=== PATIENT | male | born 1955 | race Hispanic/Latino ===

== ENCOUNTER 2019-10-28 10:59 | Outpatient (CLI) | payer OTHER, SELFPAY ==
--- NOTE | ~2019-10-28 | CT_ITS ---
EXAMINATION: CT lung screening EXAM DATE: 10/28/2019 11:27 INDICATION: Personal history of nicotine dependence. TECHNIQUE: Spiral low dose CT of the chest without contrast. Axial, coronal and sagittal images were reviewed. The dose-length product (DLP) for this examination was 219.40 mGy-cm. The exposure was t ailored according to patient size (auto mA exposure control), and iterative reconstruction (ASIR) was used as additional dose reduction technique. Comparison is made to prior examination from 03/03/2018 . FINDINGS: There is mild to moderate emphysema. There is a 2 mm nodule in the left upper lobe. Difficu lt to determine if this was present on prior study. Tracheobronchial tree is patent. There is no m ediastinal, hilar or axillary lymphadenopathy. There are no pleural or pericardial effusions. The re is no pneumothorax. Heart normal in size. There is moderate coronary arterial calcification, a rterial sclerosis. Upper abdomen is unremarkable. There is mild thoracic spondylosis without osteob lastic or osteolytic lesions identified. IMPRESSION: Lung-RADS category 2, benign appearance or behavior (<1% chance of malignancy); recommend continued LDCT screening in 1 year. Reviewed, dictated and finalized at location A.
== END 2019-10-28 11:00 | disposition home or self-care (01) ==
LOC: ANHIMG 11:03
PROVIDERS: PCP Family Medicine; Visit Provider Physician Assistant
DX: Z12.2 Encounter for screening for malignant neoplasm of respiratory organs (principal); Z87.891 Personal history of nicotine dependence
CPT/HCPCS: G0297

== ENCOUNTER 2019-11-16 07:07 | Outpatient (CLI) | payer OTHER, SELFPAY ==
[2019-11-16 07:30] LABS: Basophils Absolute Auto 0.1 K/mm3 (0.0-0.1); Basophils Percent Auto 0.6 % (0.2-1.2); Eosinophils Absolute Auto 0.2 K/mm3 (0-0.3); Eosinophils Percent Auto 2.4 % (0-4.4); Hematocrit 41.6 % (42.0-52.0); Hemoglobin 14.2 g/dL (14.0-18.0); Immature Granulocyte Absolute 0.04 K/mm3 (0.00-0.031); Immature Granulocyte Percent A 0.5 % (0-0.5); Lymphocytes Absolute Auto 3.06 K/mm3 (0.9-3.2); Mean Corpuscular HGB Conc 34.1 g/dl (32-36); Mean Corpuscular Volume 93.7 fl (80-100); Mean Platelet Volume 9.8 fl (7.4-10.4); Monocytes Absolute Auto 0.8 K/mm3 (0.1-0.6); Monocytes Percent Auto 9.2 % (2.6-8.5); Neutrophils Absolute Auto 4.2 K/mm3 (1.3-6.7); Neutrophils Percent Auto 50.3 % (45.5-73.1); Platelet Count Result 265 k/mm3 (150-375); Red Blood Count 4.44 M/mm3 (4.6-6.20); Red Cell Distribution Width 12.7 % (11.5-14.5); White Blood Count 8.3 K/mm3 (4.5-10.0)
[2019-11-16 07:43] LABS: Hemoglobin A1C 6.1 % (<5.7)
[2019-11-16 07:44] LABS: Alanine Aminotransferase 58 U/L (4-50); Albumin Level 4.6 g/dL (3.5-5.1); Alkaline Phosphatase 118 U/L (38-126); Anion Gap 9 mmol/L (8-16); Aspartate Amino Transferase 39 U/L (17-59); Bilirubin,Total 0.5 mg/dL (0.2-1.3); Blood Urea Nitrogen 16 mg/dL (9-20); Calcium 9.4 mg/dL (8.4-10.2); Carbon Dioxide 29 mmol/L (22-30); Chloride 100 mmol/L (98-107); Cholesterol 191 mg/dL (0-200); Estimated Glomerular Filt Rate > 60; Glucose 120 mg/dL (75-110); HDL Direct 42 mg/dL; Potassium 3.9 mmol/L (3.4-5.0); Sodium 138 mmol/L (137-145); Triglycerides 300 mg/dL (<150)
[2019-11-16 07:55] LABS: LDL Cholesterol Direct 100 mg/dL
[2019-11-16 08:33] LABS: Add Urine Microscopic? NO; Appearance Urine Clear (Clear); Bilirubin Urine Negative (Negative); Blood Urine Negative (Negative); Color Urine Straw (Yellow); Glucose Urine UA Negative (Negative); Ketones Urine Negative (Negative); Leukocyte Esterase Ur Negative LEU/UL (NEGATIVE); Nitrate Urine Negative (Negative); Protein Urine Negative (Negative); Specific Grav Ur 1.012 (1.001-1.035); Urobilinogen Urine Negative mg/dL (<2.0)
[2019-11-19 09:08] LABS: Protein S Antigen, Total 121 % normal (70-140)
== END 2019-11-16 07:08 | disposition home or self-care (01) ==
PROVIDERS: PCP Family Medicine; Visit Provider Physician Assistant
DX: E78.00 Pure hypercholesterolemia, unspecified (principal); E11.42 Type 2 diabetes mellitus with diabetic polyneuropathy; I10 Essential (primary) hypertension; Z12.5 Encounter for screening for malignant neoplasm of prostate
CPT/HCPCS: 36415; 80053; 80061; 81003; 83036; 84443; 85025; 85305

== ENCOUNTER 2020-04-24 06:35 | Outpatient (CLI) | payer OTHER, SELFPAY ==
--- NOTE | ~2020-04-24 | XR_ITS ---
EXAMINATION:XR_CERV2-3V_CR DATE: 04/24/2020 07:29 INDICATION: Neck pain TECHNIQUE: AP, lateral, lateral swimmers and odontoid views of the cervical spine are obtained on fiv e radiographs. COMPARISON: 03/21/2014 FINDINGS: There are 2 mm of stable anterolisthesis of C4 on C5. The odontoid is intact. No fracture i s identified. The vertebral body heights are normal. There is moderate loss of intervertebral disc sp destin height at C5-6 and C6-7. There is moderate to severe facet and uncovertebral joint osteoarthritis throughout the mid and lower cervical spine. Prevertebral soft tissues are normal. IMPRESSION: 1. Moderate cervical spondylosis without acute findings or significant interval change. Reviewed, dictated and finalized at location A. NE DESIGNER
--- NOTE | ~2020-04-24 | XR_ITS ---
EXAMINATION: XR lumbar spine 2-3V DATE: 04/24/2020 07:29 INDICATION: Low back pain TECHNIQUE: Anteroposterior and lateral views of the lumbar spine, and cone-down lateral view of the l umbosacral junction were obtained. COMPARISON: 01/05/2015 FINDINGS: There are 3 mm of stable anterolisthesis of L4 on L5. There is severe loss of intervertebra l disc space height at L5-S1 and moderate loss of intervertebral disc space height at L4-5. The verte bral body heights are normal. There is severe facet osteoarthritis of the lower lumbar spine. Calcifi ed atherosclerosis is noted. IMPRESSION: 1. Severe lumbar spondylosis with interval worsening. Reviewed, dictated and finalized at location A. RT SPECIALIST
[2020-04-24 07:21] LABS: Hemoglobin A1C 6.3 % (<5.7)
[2020-04-24 07:31] LABS: Alanine Aminotransferase 38 U/L (4-50); Albumin Level 4.2 g/dL (3.5-5.1); Alkaline Phosphatase 108 U/L (38-126); Anion Gap 6 mmol/L (8-16); Aspartate Amino Transferase 28 U/L (17-59); Bilirubin,Total 0.6 mg/dL (0.2-1.3); Blood Urea Nitrogen 6 mg/dL (9-20); Calcium 9.4 mg/dL (8.4-10.2); Carbon Dioxide 31 mmol/L (22-30); Chloride 90 mmol/L (98-107); Estimated Glomerular Filt Rate > 60; Glucose 124 mg/dL (75-110); Potassium 3.3 mmol/L (3.4-5.0); Sodium 127 mmol/L (137-145)
[2020-04-24 08:01] LABS: Prostate Specific Antigen 1.2 ng/mL (< OR = 4.0)
== END 2020-04-24 06:36 | disposition home or self-care (01) ==
PROVIDERS: PCP Family Medicine; Referring Provider Pain Medicine Interventional Pain Medicine; Visit Provider Physician Assistant
DX: G89.4 Chronic pain syndrome (principal); E11.42 Type 2 diabetes mellitus with diabetic polyneuropathy; I10 Essential (primary) hypertension; R97.20 Elevated prostate specific antigen [PSA]; Z13.89 Encounter for screening for other disorder; Z79.891 Long term (current) use of opiate analgesic; M47.26 Other spondylosis with radiculopathy, lumbar region; M47.22 Other spondylosis with radiculopathy, cervical region
CPT/HCPCS: 36415; 72040; 72100; 80053; 83036; 84153

== ENCOUNTER 2020-05-01 06:38 | Outpatient (CLI) | payer OTHER, SELFPAY ==
[2020-05-01 07:37] LABS: Potassium 3.5 mmol/L (3.4-5.0)
[2020-05-01 07:48] LABS: Anion Gap 6 mmol/L (8-16); Blood Urea Nitrogen 9 mg/dL (9-20); Calcium 9.4 mg/dL (8.4-10.2); Carbon Dioxide 29 mmol/L (22-30); Chloride 98 mmol/L (98-107); Estimated Glomerular Filt Rate > 60; Glucose 134 mg/dL (75-110); Sodium 133 mmol/L (137-145)
== END 2020-05-01 06:39 | disposition home or self-care (01) ==
PROVIDERS: Family Provider Family Medicine; PCP Family Medicine; Visit Provider Physician Assistant
DX: E87.1 Hypo-osmolality and hyponatremia (principal)
CPT/HCPCS: 36415; 80048

== ENCOUNTER 2020-07-07 10:51 | Outpatient (CLI) | payer OTHER, SELFPAY | END 2020-07-07 10:52 | disposition home or self-care (01) | LOC: ANHAUDIO 10:52 | PROVIDERS: PCP Family Medicine; Referring Provider Family Medicine; Visit Provider Nurse Practitioner Family | DX: H91.90 Unspecified hearing loss, unspecified ear (principal) | CPT/HCPCS: 92557; 92567 ==

== ENCOUNTER 2020-07-20 14:00 | Outpatient (RCR) | payer SELFPAY | END 2020-07-20 23:59 | disposition home or self-care (01) | LOC: ANHAUDIO 14:00 | PROVIDERS: PCP Family Medicine; Visit Provider Family Medicine | DX: Z46.1 Encounter for fitting and adjustment of hearing aid (principal) | CPT/HCPCS: 99199; V5261 ==

== ENCOUNTER → 2020-10-30 09:54 | Outpatient (CLI) | payer OTHER, SELFPAY ==
--- NOTE | ~2020-10-30 | US_ITS ---
EXAMINATION: US venous doppler LE RT DATE: 10/30/2020 10:24 INDICATION: Right lower limb swelling TECHNIQUE: Macias scale images without and with compression and Doppler images of the right lower extre mity veins were obtained. COMPARISON: None FINDINGS: The right common femoral vein, profunda femoral vein, femoral vein, popliteal vein, peronea l trunk, posterior tibial veins, and greater saphenous vein are patent. No discrete abnormality is id entified in the area of clinical concern. IMPRESSION: 1. Patent right lower extremity veins. No evidence of deep venous thrombosis. 2. No discrete sonographic abnormality detected in the area of clinical interest. Reviewed, dictated and finalized at location B. IMPRESSION: 1. Patent right lower extremity veins. No evidence of deep venous thrombosis. 2. No discrete sonographic abnormality detected in the area of clinical interes t.
== END ==
PROVIDERS: PCP Family Medicine; Visit Provider Physician Assistant
DX: L98.9 Disorder of the skin and subcutaneous tissue, unspecified (principal); M79.89 Other specified soft tissue disorders
CPT/HCPCS: 93971

== ENCOUNTER 2020-11-12 14:14 | Outpatient (CLI) | payer MEDICARE, OTHER, SELFPAY ==
[2020-11-12 14:37] LABS: Basophils Percent Auto 0.4 % (0.2-1.2); Eosinophils Percent Auto 0.2 % (0-4.4); Hematocrit 40.1 % (42.0-52.0); Hemoglobin 14.3 g/dL (14.0-18.0); Immature Granulocyte Absolute 0.03 K/mm3 (0.00-0.031); Immature Granulocyte Percent A 0.3 % (0-0.5); Lymphocytes Absolute Auto 2.54 K/mm3 (0.9-3.2); Lymphocytes Percent Auto 24.3 % (18.3-44.2); Mean Corpuscular HGB Conc 35.7 g/dl (32-36); Mean Corpuscular Hemoglobin 31.6 pg (26-34); Mean Corpuscular Volume 88.7 fl (80-100); Mean Platelet Volume 9.4 fl (7.4-10.4); Monocytes Absolute Auto 0.8 K/mm3 (0.1-0.6); Monocytes Percent Auto 7.2 % (2.6-8.5); Neutrophils Absolute Auto 7.1 K/mm3 (1.3-6.7); Neutrophils Percent Auto 67.6 % (45.5-73.1); Platelet Count Result 326 k/mm3 (150-375); Red Blood Count 4.52 M/mm3 (4.6-6.20); Red Cell Distribution Width 12.2 % (11.5-14.5); White Blood Count 10.5 K/mm3 (4.5-10.0)
[2020-11-12 14:46] LABS: Add Urine Microscopic? YES; Appearance Urine Clear (Clear); Bilirubin Urine Negative (Negative); Blood Urine Negative (Negative); Color Urine Straw (Yellow); Glucose Urine UA Negative (Negative); Ketones Urine Negative (Negative); Leukocyte Esterase Ur Trace LEU/UL (NEGATIVE); Nitrate Urine Negative (Negative); Protein Urine Negative (Negative); RBC Urine 0-2 /hpf (0-2); Specific Grav Ur 1.008 (1.001-1.035); Urobilinogen Urine Negative mg/dL (<2.0)
[2020-11-12 17:18] LABS: Alanine Aminotransferase 27 U/L (4-50); Albumin Level 4.4 g/dL (3.5-5.1); Alkaline Phosphatase 117 U/L (38-126); Anion Gap 11 mmol/L (8-16); Aspartate Amino Transferase 20 U/L (17-59); Bilirubin,Total 0.7 mg/dL (0.2-1.3); Blood Urea Nitrogen 6 mg/dL (9-20); Calcium 9.7 mg/dL (8.4-10.2); Carbon Dioxide 24 mmol/L (22-30); Chloride 90 mmol/L (98-107); Estimated Glomerular Filt Rate > 60; Glucose 119 mg/dL (65-110); Potassium 3.4 mmol/L (3.4-5.0); Sodium 125 mmol/L (137-145)
[2020-11-12 17:36] LABS: Hemoglobin A1C 6.3 % (<5.7)
[2020-11-12 17:44] LABS: Prostate Specific Antigen 1.4 ng/mL (< OR = 4.0)
== END 2020-11-12 14:15 | disposition home or self-care (01) ==
LOC: ANHLAB 14:16
PROVIDERS: PCP Family Medicine; Visit Provider Physician Assistant
DX: N13.4 Hydroureter (principal); R10.9 Unspecified abdominal pain; E11.42 Type 2 diabetes mellitus with diabetic polyneuropathy; H35.039 Hypertensive retinopathy, unspecified eye; N40.0 Benign prostatic hyperplasia without lower urinary tract symptoms
CPT/HCPCS: 36415; 80053; 81001; 83036; 84153; 85025; 87086

== ENCOUNTER 2020-11-20 12:45 | Outpatient (CLI) | payer MEDICARE, OTHER, SELFPAY ==
--- NOTE | ~2020-11-20 | US_ITS ---
EXAMINATION: US carotid duplex BI DATE: 11/20/2020 13:38 INDICATION: Conjunctival hemorrhage of the eyes. TECHNIQUE: Grayscale, color Doppler, and pulsed Doppler images of the cervical carotid arteries were obtained. The degree of vessel stenosis is placed in one of the following categories: normal, <50%, 5 0-69%, >=70% but less than near-occlusion, near-occlusion, or total occlusion. Note that percent sten osis relative to normal distal artery lumen diameter is indirectly measured from velocity measurement s as described by Curtis, et al. Radiology 2003; 229:340-346. COMPARISON: None. FINDINGS: RIGHT: The right common carotid artery (CCA) peak systolic velocity (PSV) is 96 cm/s. The right internal car otid artery (ICA) PSV is 85 cm/s. The right ICA end-diastolic velocity (EDV) is 25 cm/s. The right IC A/CCA PSV ratio is 0.9. Grayscale and color Doppler images yield an estimate of <50% diameter reducti on from plaque in the ICA. There is antegrade flow in the right vertebral artery. LEFT: The left CCA PSV is 104 cm/s. The left ICA PSV is 94 cm/s. The left ICA EDV is 31 cm/s. The left ICA/ CCA PSV ratio is 0.9. Grayscale and color Doppler images yield an estimate of <50% diameter reduction from plaque in the ICA. There is antegrade flow in the left vertebral artery. IMPRESSION: 1. <50% stenosis in the right internal carotid artery. 2. <50% stenosis in the left internal carotid artery. Reviewed, dictated and finalized at location A.
[2020-11-20 13:58] LABS: Basophils Percent Auto 0.4 % (0.2-1.2); Eosinophils Absolute Auto 0.1 K/mm3 (0-0.3); Eosinophils Percent Auto 1.4 % (0-4.4); Hematocrit 41.3 % (42.0-52.0); Hemoglobin 14.3 g/dL (14.0-18.0); Immature Granulocyte Absolute 0.02 K/mm3 (0.00-0.031); Immature Granulocyte Percent A 0.2 % (0-0.5); Lymphocytes Absolute Auto 2.64 K/mm3 (0.9-3.2); Lymphocytes Percent Auto 28.8 % (18.3-44.2); Mean Corpuscular HGB Conc 34.6 g/dl (32-36); Mean Corpuscular Hemoglobin 31.6 pg (26-34); Mean Corpuscular Volume 91.2 fl (80-100); Mean Platelet Volume 9.4 fl (7.4-10.4); Monocytes Absolute Auto 0.8 K/mm3 (0.1-0.6); Monocytes Percent Auto 8.3 % (2.6-8.5); Neutrophils Absolute Auto 5.6 K/mm3 (1.3-6.7); Neutrophils Percent Auto 60.9 % (45.5-73.1); Platelet Count Result 326 k/mm3 (150-375); Red Blood Count 4.53 M/mm3 (4.6-6.20); Red Cell Distribution Width 12.6 % (11.5-14.5); White Blood Count 9.2 K/mm3 (4.5-10.0)
[2020-11-20 14:15] LABS: Alanine Aminotransferase 29 U/L (4-50); Albumin Level 4.4 g/dL (3.5-5.1); Alkaline Phosphatase 112 U/L (38-126); Anion Gap 11 mmol/L (8-16); Aspartate Amino Transferase 25 U/L (17-59); Bilirubin,Total 0.3 mg/dL (0.2-1.3); Blood Urea Nitrogen 9 mg/dL (9-20); Calcium 9.5 mg/dL (8.4-10.2); Carbon Dioxide 27 mmol/L (22-30); Chloride 95 mmol/L (98-107); Estimated Glomerular Filt Rate > 60; Glucose 141 mg/dL (65-110); Potassium 3.4 mmol/L (3.4-5.0); Sodium 133 mmol/L (137-145)
== END 2020-11-20 12:46 | disposition home or self-care (01) ==
LOC: ANHIMG 12-18 12:45
PROVIDERS: Physician Assistant; PCP Family Medicine; Visit Provider Physician Assistant
DX: E87.1 Hypo-osmolality and hyponatremia (principal); I65.23 Occlusion and stenosis of bilateral carotid arteries; D72.829 Elevated white blood cell count, unspecified; H11.33 Conjunctival hemorrhage, bilateral; E11.40 Type 2 diabetes mellitus with diabetic neuropathy, unspecified; I10 Essential (primary) hypertension
CPT/HCPCS: 36415; 80053; 85025; 93880

== ENCOUNTER 2021-02-01 14:35 | Outpatient (RCR) | payer MEDICARE, OTHER, SELFPAY | END 2021-02-01 23:59 | disposition home or self-care (01) | LOC: ANHAUDIO 14:35 | PROVIDERS: PCP Family Medicine; Visit Provider Family Medicine | DX: Z46.1 Encounter for fitting and adjustment of hearing aid (principal) | CPT/HCPCS: 99199 ==

== ENCOUNTER 2021-04-15 15:31 | Outpatient (CLI) | payer MEDICARE, OTHER, SELFPAY ==
[2021-04-15 16:06] LABS: Hemoglobin A1C 6.3 % (<5.7)
[2021-04-15 16:09] LABS: Alanine Aminotransferase 30 U/L (4-50); Albumin Level 4.8 g/dL (3.5-5.1); Alkaline Phosphatase 130 U/L (38-126); Anion Gap 9 mmol/L (8-16); Aspartate Amino Transferase 25 U/L (17-59); Bilirubin,Total 0.6 mg/dL (0.2-1.3); Blood Urea Nitrogen 8 mg/dL (9-20); Calcium 9.6 mg/dL (8.4-10.2); Carbon Dioxide 27 mmol/L (22-30); Chloride 96 mmol/L (98-107); Estimated Glomerular Filt Rate > 60; Glucose 108 mg/dL (65-110); Potassium 3.6 mmol/L (3.4-5.0); Sodium 132 mmol/L (137-145)
== END 2021-04-15 15:32 | disposition home or self-care (01) ==
LOC: ANHLAB 15:35
PROVIDERS: PCP Family Medicine; Visit Provider Physician Assistant
DX: E11.42 Type 2 diabetes mellitus with diabetic polyneuropathy (principal); I10 Essential (primary) hypertension
CPT/HCPCS: 36415; 80053; 83036

== ENCOUNTER 2021-04-23 08:00 | Outpatient (CLI) | payer MEDICARE, OTHER, SELFPAY ==
--- NOTE | ~2021-04-23 | CT_ITS ---
EXAMINATION:CT lung screening DATE: 04/23/2021 09:12 INDICATION: Personal history of nicotine dependence. Current smoker with 30 pack year history. TECHNIQUE: Computed tomography (CT) of the chest was performed without intravenous contrast. Automate d exposure control and iterative reconstruction technique were employed. The dose-length product (DLP ) was 196.28 mGy-cm. COMPARISON: Chest CT 10/28/2019 FINDINGS: There is mild emphysema. Again seen is a 2 mm nodule in right upper lobe. No pleural effusi on. The heart size is normal. There are coronary artery calcifications. No pericardial effusion. Ther e are is a gallstone in the gallbladder, which is normal in size. There is mild thoracic spondylosis. IMPRESSION: 1. Lung-RADS category 2: Benign appearance or behavior. Continue annual screening with noncontrast lo w-dose chest CT in 12 months. Reviewed, dictated and finalized at location B. OF HUMAN RESOURCES IMPRESSION: 1. Lung-RADS category 2: Benign appearance or behavior. Continue annual screeni ng with noncontrast low-dose chest CT in 12 months.
--- NOTE | ~2021-04-23 | US_ITS ---
EXAMINATION: US aorta [employer] [facility] EXAM DATE: 04/23/2021 09:07 INDICATION: Tobacco use. High blood pressure. Hypertension, diabetes. High cholesterol. Abdominal aor tic aneurysm screening. TECHNIQUE: Multiple grayscale and Doppler images of the abdominal aorta were obtained (by a technolog ist who performed the scan) and subsequently reviewed. There is no prior study for comparison. FINDINGS: The abdominal aorta is normal in caliber as are the common iliac arteries. No retroperitoneal mass id entified. IMPRESSION: Normal abdominal aortic caliber. Reviewed, dictated and finalized at location A. MAKER HELPER MACHINE
== END 2021-04-23 08:01 | disposition home or self-care (01) ==
LOC: ANHIMG 08:04
PROVIDERS: PCP Family Medicine; Visit Provider Physician Assistant
DX: Z87.891 Personal history of nicotine dependence (principal)
CPT/HCPCS: 71271; 76706

== ENCOUNTER 2021-05-31 06:40 | Outpatient (CLI) | payer MEDICARE, OTHER, SELFPAY ==
--- NOTE | ~2021-05-31 | MR_ITS ---
EXAMINATION: MR lumbar spine wo [facility] EXAM DATE: 05/31/2021 07:28 INDICATION: Lumbar radiculopathy. Left hip pain. Left leg pain. TECHNIQUE: Multi-sequential, multiplanar MR images of the lumbar spine were obtained without contrast . Sagittal T1, T2, T2 fat saturation images. Axial T2 weighted images. Comparison is made to prior examination from 08/15/2018. FINDINGS: There is severe disc disease at L5-S1, moderate at L4-5, mild at the other lumbar levels. T here is 3 mm anterolisthesis L4 on L5, 4 mm retrolisthesis L5 on S1. There are some degenerative endp late signal changes L5-S1. There are no suspicious focal vertebral signal abnormalities identified. The conus medullaris terminates at the T12-L1 level and has normal signal intensity and morphology. Paraspinal soft tissue is unremarkable. Level by level evaluation: T12-L1: Disc does not extend beyond the endplate margin. Facet arthropathy: None. Neural foraminal stenosis: No stenosis. Central canal stenosis: No stenosis. L1-L2: There is a mild diffuse disc bulge. Facet arthropathy: Mild. Neural foraminal stenosis: Minimal bilateral. Central canal stenosis: Minimal. L2-L3: There is a mild diffuse disc bulge. Facet arthropathy: Mild. Neural foraminal stenosis: Minimal bilateral. Central canal stenosis: Mild. L3-L4: There is a mild diffuse disc bulge. Facet arthropathy: Mild to moderate right, mild left. Neural foraminal stenosis: Mild bilateral. Central canal stenosis: Mild. L4-L5: There is a moderate diffuse disc bulge asymmetric to the right Facet arthropathy: Moderate. Neural foraminal stenosis: Mild to moderate left, mild right. Central canal stenosis: Mild to moderate. L5-S1: There is a moderate diffuse disc bulge. Facet arthropathy: Mild. Neural foraminal stenosis: Moderate left, mild to moderate right. Central canal stenosis: Mild. Mild interval progression spondylosis compared to previous examination. IMPRESSION: 1. L5-S1 moderate to severe disc disease and moderate left neural foraminal stenosis. 2. Mild lower lumbar subluxations. Reviewed, dictated and finalized at location A. ICE PROVIDER IMPRESSION: 1. L5-S1 moderate to severe disc disease and moderate left neural foraminal st enosis. 2. Mild lower lumbar subluxations.
== END 2021-05-31 06:41 | disposition home or self-care (01) ==
LOC: ANHIMG 06:43
PROVIDERS: PCP Family Medicine
DX: M54.17 Radiculopathy, lumbosacral region (principal); M51.37 Other intervertebral disc degeneration, lumbosacral region; Z79.891 Long term (current) use of opiate analgesic
CPT/HCPCS: 72148

== ENCOUNTER 2021-07-29 06:55 | Outpatient (CLI) | payer MEDICARE, OTHER, SELFPAY ==
[2021-07-29 08:23] LABS: Alanine Aminotransferase 28 U/L (4-50); Albumin Level 4.5 g/dL (3.5-5.1); Alkaline Phosphatase 118 U/L (38-126); Anion Gap 5 mmol/L (8-16); Aspartate Amino Transferase 27 U/L (17-59); Bilirubin,Total 0.5 mg/dL (0.2-1.3); Blood Urea Nitrogen 10 mg/dL (9-20); Calcium 8.8 mg/dL (8.4-10.2); Carbon Dioxide 29 mmol/L (22-30); Chloride 99 mmol/L (98-107); Estimated Glomerular Filt Rate > 60; Glucose 90 mg/dL (65-110); Potassium 3.8 mmol/L (3.4-5.0); Sodium 133 mmol/L (137-145)
== END 2021-07-29 06:56 | disposition home or self-care (01) ==
PROVIDERS: PCP Family Medicine; Visit Provider Physician Assistant
DX: E11.42 Type 2 diabetes mellitus with diabetic polyneuropathy (principal); I10 Essential (primary) hypertension
CPT/HCPCS: 36415; 80053; 83036

== ENCOUNTER → 2021-09-28 09:48 | Outpatient (REF) | payer MEDICARE, OTHER, SELFPAY | LOC: ANHLAB 09:48 | PROVIDERS: PCP Family Medicine; Visit Provider Nurse Practitioner | DX: L85.8 Other specified epidermal thickening (principal); B07.8 Other viral warts | CPT/HCPCS: 88305 ==

== ENCOUNTER 2021-11-06 06:43 | Outpatient (CLI) | payer MEDICARE, OTHER, SELFPAY ==
[2021-11-06 07:08] LABS: Alanine Aminotransferase 29 U/L (6-50); Albumin Level 4.5 g/dL (3.5-5.1); Alkaline Phosphatase 106 U/L (38-126); Anion Gap 12 mmol/L (8-16); Aspartate Amino Transferase 21 U/L (17-59); Bilirubin,Total 0.5 mg/dL (0.2-1.3); Blood Urea Nitrogen 7 mg/dL (9-20); Calcium 9.4 mg/dL (8.4-10.2); Carbon Dioxide 28 mmol/L (22-30); Chloride 93 mmol/L (98-107); Estimated Glomerular Filt Rate > 60; Glucose 176 mg/dL (65-110); Potassium 3.4 mmol/L (3.4-5.0); Sodium 133 mmol/L (137-145)
[2021-11-06 07:10] LABS: Hemoglobin A1C 5.9 % (<5.7)
== END 2021-11-06 06:44 | disposition home or self-care (01) ==
LOC: ANHLAB 06:46
PROVIDERS: PCP Family Medicine; Visit Provider Physician Assistant
DX: E11.42 Type 2 diabetes mellitus with diabetic polyneuropathy (principal); I10 Essential (primary) hypertension
CPT/HCPCS: 36415; 80053; 83036

== ENCOUNTER → 2021-12-21 11:33 | Outpatient (CLI) | payer MEDICARE, OTHER, SELFPAY ==
--- NOTE | ~2021-12-21 | XR_ITS ---
EXAMINATION: XR hip LT min 3V w AP pelvis DATE: 12/21/2021 11:52 INDICATION: Left hip injury. Initial encounter. TECHNIQUE: An anteroposterior view of the pelvis and 2 views of left hip were obtained. COMPARISON: Left hip radiographs 09/16/2015 FINDINGS: Bone alignment is normal. No fracture. There is severe lower lumbar spondylosis. There is m ild osteoarthritis of the hips. IMPRESSION: 1. Mild osteoarthritis of the hips. Reviewed, dictated and finalized at location A.
== END ==
PROVIDERS: PCP Family Medicine; Visit Provider Physician Assistant
DX: S79.912A Unspecified injury of left hip, initial encounter (principal); X58.XXXA Exposure to other specified factors, initial encounter; M16.12 Unilateral primary osteoarthritis, left hip
CPT/HCPCS: 73502

== ENCOUNTER 2022-03-12 09:11 | Outpatient (CLI) | payer MEDICARE, OTHER, SELFPAY ==
--- NOTE | 2022-03-12 10:02 | ECHO_ITS ---
Patient Info Name: Mathieu Mcgarry Age: 66 years : 1955 Gender: Male Ht: 69 in Wt: 215 lbs BSA: 2.21 m2 HR: 93 bpm BP: 140 / 88 mmHg Technical Quality: Fair Exam Date: 03/12/2022 10:29 AM Exam Location: [facility] Pulmonary Patient Status: Outpatient Admit Date: 03/12/2022 Staff Ordering Physician: Chrissy Linares PA-C Transit Survey Worker: Darshana Desai RDCS Attending Provider: Chrissy Linares PA-C Referring Physician: Milagros KRAUS; Exam Type: CA echo doppler color flow Study Info Indications - HTN TACHYCARDIA Complete two-dimensional, color flow and Doppler transthoracic echocardiogram is performed. Summary 1. Complete two-dimensional, color flow and Doppler transthoracic echocardiogram is performed. 2. Left ventricular chamber dimension is normal. 3. Left ventricular systolic function is normal, estimated at 65-70%. 4. There is mildly increased left ventricular wall thickness. 5. The left ventricular diastolic function is grade I diastolic dysfunction. 6. E/e' 10 is mildly elevated. 7. Mild right ventricular hypertrophy. 8. There is mild aortic valve sclerosis. 9. There is trace mitral valve regurgitation. 10. There is trace tricuspid valve regurgitation. 11. No pulmonary hypertension, estimated pulmonary arterial systolic pressure is 31 mmHg. Left Ventricle E/e' 10 is mildly elevated. Left ventricular chamber dimension is normal. Left ventricular systolic function is normal, estimated at 65-70%. There is mildly increased left ventricular wall thickness. The left ventricular diastolic function is grade I diastolic dysfunction. Right Ventricle Mild right ventricular hypertrophy. Right ventricular chamber dimension is normal. Right ventricular systolic function is normal. Left Atria Left atrial chamber dimension is normal. Right Atria Right atrial chamber dimension is normal. Aortic Valve The aortic valve is trileaflet. There is mild aortic valve sclerosis. There is no aortic valve stenosis. There is no aortic valve regurgitation. Pulmonic Valve There is no pulmonic regurgitation. Mitral Valve There is no mitral valve stenosis. There is trace mitral valve regurgitation. Tricuspid Valve There is trace tricuspid valve regurgitation. No pulmonary hypertension, estimated pulmonary arterial systolic pressure is 31 mmHg. Pericardium/Pleural There is no pericardial effusion. Inferior Vena Cava Normal inferior vena cava with >50% collapse upon inspiration consistent with normal right atrial pressure, 5 mmHg. Aorta The aortic root size at the sinus of Valsalva is normal. Left Ventricular Outflow Tract Name Value Normal LVOT 2D LVOT Diameter 2.1 cm LVOT Doppler LVOT Peak Gradient 5 mmHg LVOT Mean Gradient 2 mmHg LVOT VTI 22 cm LVOT VTI/AV VTI Ratio 0.7 LVOT Stroke Volume 78 ml LVOT CO 15.4 l/min LVOT CI 7.0 l/min/m2 Pulmonic
== END 2022-03-12 09:12 | disposition home or self-care (01) ==
PROVIDERS: PCP Family Medicine; Visit Provider Physician Assistant
DX: R00.0 Tachycardia, unspecified (principal); I10 Essential (primary) hypertension
CPT/HCPCS: 93306

== ENCOUNTER 2022-03-19 10:48 | Emergency (ER) | payer MEDICARE, OTHER, SELFPAY ==
--- NOTE | ~2022-03-19 | XR_ITS ---
EXAMINATION:XR_CERV2-3V_CR DATE: 03/19/2022 11:32 INDICATION: Neck pain TECHNIQUE: AP, lateral, lateral swimmers and odontoid views of the cervical spine are provided. COMPARISON: 04/24/2020 FINDINGS: 2-3 mm anterolisthesis C4 on C5 with Odontoid is intact. Normal atlantoaxial interval. Vertebral bod y heights are normal. Interval progression at each level in now severe disc height loss at C6-C7, mod erate disc height loss at C5-C6 and mild disc height loss at C4-C5. Multilevel bilateral moderate to severe lower cervical predominant uncovertebral osteoarthritis. Multilevel severe left-sided and mode rate to severe right-sided cervical facet osteoarthritis. Prevertebral soft tissues are normal. Small calcified right apical nodule consistent with old granulomatous disease. IMPRESSION: 1. Interval progression of now severe lower cervical predominant spondylosis. Reviewed, dictated and finalized at location A. ERSITY MANAGER
[2022-03-19 11:01] VITALS: BP 149/73; PULSE 99; RESP 16; TEMP 36.9; O2SAT 98
--- NOTE | 2022-03-19 12:46 | ED.NECK ---
HPI - Neck Pain/Injury General Chief Complaint: Neck Pain/Injury Stated Complaint: neck pain Time Seen by Provider: 03/19/22 11:11 History of Present Illness HPI Narrative: 66-year-old male history of COPD, type 2 diabetes, hypertension, GERD, hyperlipidemia, chronic pain of his neck and back presents emergency room for evaluation of left-sided neck pain. Patient states he woke up this morning is experiencing some muscle spasms in the left side of his neck. Took a Flexeril which did not alleviate his symptoms. Patient denies any difficulty swallowing or difficulty breathing. States pain is worse when attempting to look to the left or bends his neck to the left. Denies any injury or trauma. Denies headache. Related Data Home Medications Medication Instructions Recorded Confirmed aripiprazole 5 mg tablet (Abilify) 5 mg PO DAILY 02/28/19 02/08/22 clonazepam 0.5 mg tablet (Klonopin) 0.5 mg PO DAILY 02/28/19 02/08/22 duloxetine 60 mg capsule,delayed 60 mg PO DAILY 02/28/19 02/08/22 release (Cymbalta) Allergies Allergy/AdvReac Type Severity Reaction Status Date / Time pregabalin [From Lyrica] AdvReac Muscle Verified 03/19/22 11:03 Spasms Review of Systems Review of Systems: CONSTITUTIONAL: Denies fever, chills, or sweats. EYES: Denies visual changes, redness, or discharge. ENT: Denies rhinorrhea, congestion, sore throat, or otalgia. CARDIOVASCULAR: Denies chest pain, palpitations, or edema. RESPIRATORY: Denies cough or dyspnea. GASTROINTESTINAL: Denies abdominal pain, nausea, vomiting, or diarrhea. GENITOURINARY: Denies dysuria or hematuria. SKIN: Denies rash or itching. MUSCULOSKELETAL: Reports neck pain NEUROLOGIC: Denies headache, numbness, dizziness, or weakness. PSYCHIATRIC: Denies anxiety or depression. [facility] Past Medical History Medical History Benign colon polyp Overweight Radiculopathy, lumbar region Right rotator cuff tear Wellness examination Family History Family History Father Family history of diabetes mellitus in first degree relative Sibling Family history of diabetes mellitus in first degree relative Other Cerebrovascular accident Diabetes mellitus Family history of arthritis Family history of cardiovascular disease Family history of lung disease Family history of malignant neoplasm Hypertension Social History Social History Social History: Smoking packs per day: 0.5 Smoking cigarettes per day: 10.0 Years smoked: 1 Smoking pack-years: 0.50 Smoking status: Current every day smoker Tobacco type: cigarettes Second hand tobacco smoke exposure: No Smoking end date: 04/10/16 Alcohol intake: current Drinks per week: 21 Substance use: never Substance use type: does not use Gender identity (if verbalized by the patient): Male Sexual Orientation (if Verbalized by the Patient): Straight or Heterosexual Exam Narrative: GENERAL: Well-appearing, well-nourished, no physical limitations, and in no acute distress. HEAD: Normocephalic, atraumatic. EYES: Conjunctivae normal, PERRLA and EOMI. NECK: Supple. No meningeal signs. No adenopathy or masses. CHEST: Clear to auscultation. No respiratory distress. No wheezes rales or rhonchi. HEART: Regular rate and rhythm. No murmur heard. Normal peripheral pulses. BACK: No midline tenderness, step-offs, bony abnormality; LROM left rotation and left lateral bend. Muscle spasms noted left paracervical/left trapezius muscle. EXTREMITIES: Normal range of motion. No edema. No clubbing or cyanosis SKIN: Warm, dry, no rash. No noted wounds NEURO: No focal deficits. Alert and oriented x3. MAEW. CN's II-XI intact bilaterally, normal gait PSYCH: Cooperative. Normal mood and affect. Course Vital Signs Vital signs: Vital Signs Temperature
[2022-03-19] MEDS: diazePAM INJ (*CRX) 10 MG/2 ML SYRINGE 5 MG IM (13:01)
[2022-03-19 13:10] VITALS: BP 128/79; PULSE 94; RESP 20; O2SAT 98
== END 2022-03-19 13:15 | disposition home or self-care (01) ==
PROVIDERS: Emergency Provider Nurse Practitioner Family; PCP Family Medicine
DX: M43.6 Torticollis (principal); E11.9 Type 2 diabetes mellitus without complications; J44.9 Chronic obstructive pulmonary disease, unspecified; I10 Essential (primary) hypertension; F17.210 Nicotine dependence, cigarettes, uncomplicated
CPT/HCPCS: 72040; 96372; 99283; J3360

== ENCOUNTER 2022-04-16 07:08 | Outpatient (CLI) | payer MEDICARE, OTHER, SELFPAY ==
--- NOTE | ~2022-04-16 | XR_ITS ---
XR lumbar spine 2-3V 04/16/2022 07:32 Indication: Radiculopathy. Procedure: 3 views lumbar spine Comparison: 04/24/2020 Findings: There is disc narrowing at L4-5 and L5-S1, stable since prior study. There is moderate lowe r lumbar facet hypertrophy. No acute fracture or traumatic malalignment. There is degenerative clemente listhesis at L4-5. There is atherosclerosis. Pedicles intact. Sacral foramen are symmetric. Impression: 1: Stable moderate-severe lumbar spondylosis most pronounced at L4-5 and L5-S1. Reviewed, dictated and finalized at location A. LENDING OFFICER Impression: 1: Stable moderate-severe lumbar spondylosis most pronounced at L4-5 and L5-S1.
--- NOTE | ~2022-04-16 | XR_ITS ---
XR cervical spine 4-5V 04/16/2022 07:32 Indication: Radiculopathy Procedure: 4 view cervical spine Comparison: Comparison to multiple prior studies sequentially, with oldest reviewed study dated 03/10. Findings: Lung apices are normal. No prevertebral soft tissue abnormality. There is degenerative ante rolisthesis at C3-4 and C4-5. There is disc narrowing at C5-6 and C6-7 with prominent ventral osteoph ytes. No prevertebral soft tissue swelling. Odontoid process is normal. Lateral masses are normally a ligned. There is moderate mid cervical facet hypertrophy. Mild multilevel uncinate hypertrophy. Lung apices are unremarkable. Impression: 1: Stable moderate-severe cervical spondylosis. Reviewed, dictated and finalized at location A. LIEUTENANT Impression: 1: Stable moderate-severe cervical spondylosis.
== END 2022-04-16 07:09 | disposition home or self-care (01) ==
LOC: ANHIMG 07:13
PROVIDERS: PCP Family Medicine; Visit Provider Pain Medicine Interventional Pain Medicine
DX: M51.36 Other intervertebral disc degeneration, lumbar region (principal); M51.37 Other intervertebral disc degeneration, lumbosacral region; Z79.891 Long term (current) use of opiate analgesic; Z13.89 Encounter for screening for other disorder; M47.892 Other spondylosis, cervical region; M47.896 Other spondylosis, lumbar region; M47.897 Other spondylosis, lumbosacral region
CPT/HCPCS: 72050; 72100

== ENCOUNTER 2022-05-21 06:34 | Outpatient (CLI) | payer MEDICARE, OTHER, SELFPAY ==
[2022-05-21 07:44] LABS: Basophils Percent Auto 0.4 % (0.2-1.2); Eosinophils Absolute Auto 0.1 K/mm3 (0-0.3); Eosinophils Percent Auto 0.7 % (0-4.4); Hematocrit 40.7 % (42.0-52.0); Hemoglobin 14.4 g/dL (14.0-18.0); Immature Granulocyte Absolute 0.05 K/mm3 (0.00-0.031); Immature Granulocyte Percent A 0.5 % (0-0.5); Lymphocytes Absolute Auto 2.52 K/mm3 (0.9-3.2); Lymphocytes Percent Auto 26.6 % (18.3-44.2); Mean Corpuscular HGB Conc 35.4 g/dl (32-36); Mean Corpuscular Hemoglobin 32.3 pg (26-34); Mean Corpuscular Volume 91.3 fl (80-100); Monocytes Absolute Auto 0.9 K/mm3 (0.1-0.6); Neutrophils Absolute Auto 5.9 K/mm3 (1.3-6.7); Neutrophils Percent Auto 62.8 % (45.5-73.1); Platelet Count Result 336 k/mm3 (150-375); Red Blood Count 4.46 M/mm3 (4.6-6.20); Red Cell Distribution Width 12.9 % (11.5-14.5); White Blood Count 9.5 K/mm3 (4.5-10.0)
[2022-05-21 07:48] LABS: Appearance Urine Clear (Clear); Bilirubin Urine Negative (Negative); Blood Urine Negative (Negative); Color Urine Yellow (Yellow); Glucose Urine UA Negative (Negative); Ketones Urine Negative (Negative); Leukocyte Esterase Ur 1+ LEU/UL (NEGATIVE); Nitrate Urine Negative (Negative); Protein Urine Negative (Negative); Specific Grav Ur 1.015 (1.001-1.035); Urobilinogen Urine 0.2 mg/dL (<2.0); pH Urine 7.5 (5.0-9.0)
[2022-05-21 07:51] LABS: Add Urine Microscopic? YES; RBC Urine 0-2 /hpf (0-2); WBC Urine 0-3 /hpf (0-3)
[2022-05-21 08:05] LABS: Alanine Aminotransferase 31 U/L (6-50); Albumin Level 4.6 g/dL (3.5-5.1); Alkaline Phosphatase 117 U/L (38-126); Anion Gap 9 mmol/L (8-16); Aspartate Amino Transferase 23 U/L (17-59); Bilirubin,Total 0.5 mg/dL (0.2-1.3); Blood Urea Nitrogen 6 mg/dL (9-20); Carbon Dioxide 27 mmol/L (22-30); Chloride 93 mmol/L (98-107); Cholesterol 169 mg/dL (0-200); Estimated Glomerular Filt Rate > 60; Glucose 109 mg/dL (65-110); HDL Direct 61 mg/dL; Potassium 3.5 mmol/L (3.4-5.0); Sodium 129 mmol/L (137-145); Triglycerides 99 mg/dL (<150)
[2022-05-21 08:17] LABS: LDL Cholesterol Direct 80 mg/dL
[2022-05-21 08:24] LABS: Hemoglobin A1C 5.9 % (<5.7)
[2022-05-21 08:38] LABS: Prostate Specific Antigen 1.1 ng/mL (< OR = 4.0); Thyroid Stimulating Hormone 0.715 uIU/mL (0.465-4.680)
[2022-05-21 09:21] LABS: Creatinine Urine 44.6 mg/dL
[2022-05-21 09:32] LABS: MALB Creatinine Ratio < 13.5 mg/g (0-30); Microalbumin Urine Random < 6.0 mg/L (0-16.7)
== END 2022-05-21 06:35 | disposition home or self-care (01) ==
PROVIDERS: PCP Family Medicine; Visit Provider Physician Assistant
DX: H35.30 Unspecified macular degeneration (principal); E66.3 Overweight; J44.9 Chronic obstructive pulmonary disease, unspecified; E11.42 Type 2 diabetes mellitus with diabetic polyneuropathy; I10 Essential (primary) hypertension; Z87.891 Personal history of nicotine dependence; H35.033 Hypertensive retinopathy, bilateral; R35.1 Nocturia; E78.00 Pure hypercholesterolemia, unspecified; N52.9 Male erectile dysfunction, unspecified
CPT/HCPCS: 36415; 80053; 80061; 81001; 82043; 83036; 84153; 84443; 85025

== ENCOUNTER 2022-06-28 13:52 | Outpatient (CLI) | payer MEDICARE, OTHER, SELFPAY ==
--- NOTE | ~2022-06-28 | CT_ITS ---
EXAMINATION: CT lung screening DATE: 06/28/2022 14:11 INDICATION: Personal history nicotine dependence, current smoker with 30 pack year history TECHNIQUE: Computed tomography (CT) of the chest was performed without intravenous contrast. The dose -length product (DLP) was 171.29 mGy-cm. Automated exposure control and iterative reconstruction tech [employer] were employed. COMPARISON: 04/23/2021 FINDINGS: There is mild emphysema. There is a stable 2 mm nodule in the right upper lobe. There is mi ld atelectasis in the lingula. No pleural effusion or pneumothorax. No pathologically enlarged thorac ic lymph nodes are identified. The heart size is normal. There is calcified coronary artery atheroscl erosis. Subendocardial fat deposition in the interventricular septum and left ventricular apex is con sistent with prior myocardial infarction. There is mild thoracic spondylosis. IMPRESSION: 1. Lung-RADS category 2: Benign appearance or behavior. Continue annual screening with noncontrast lo w-dose chest CT in 12 months. Reviewed, dictated and finalized at location L. IMPRESSION: 1. Lung-RADS category 2: Benign appearance or behavior. Continue annual screeni ng with noncontrast low-dose chest CT in 12 months.
== END 2022-06-28 13:53 | disposition home or self-care (01) ==
PROVIDERS: PCP Family Medicine; Visit Provider Physician Assistant
DX: Z12.2 Encounter for screening for malignant neoplasm of respiratory organs (principal); F17.210 Nicotine dependence, cigarettes, uncomplicated
CPT/HCPCS: 71271

== ENCOUNTER 2022-08-14 04:44 | Emergency (ER) | payer MEDICARE, OTHER, SELFPAY ==
--- NOTE | ~2022-08-14 | XR_ITS ---
EXAMINATION: XR ankle RT min 3V DATE: 08/14/2022 06:20 INDICATION: Right ankle pain. Fall. TECHNIQUE: 4 views of right ankle were obtained. COMPARISON: None. FINDINGS: Bone alignment is normal. No fracture. There is a small osteochondral lesion of lateral ibrahima ar dome. There is an enthesophyte at plantar aspect of calcaneal tuberosity. IMPRESSION: 1. Small osteochondral lesion of lateral talar dome. Reviewed, dictated and finalized at location A.
[2022-08-14 05:06] VITALS: BP 156/138; PULSE 102; RESP 20; TEMP 36.9; O2SAT 100
--- NOTE | 2022-08-14 05:06 | PC.NURSE ---
This RN notified EDP Dr. Giron about abnormal initial BP reading. Pt stated I normally take 3 blood pressure medications in the morning, however I forgot to take them before coming here . This RN had the pt lay flat on the bed and was able to get another BP reading within normal range. EDP Dr. Giron notified.
[2022-08-14 05:40] VITALS: BP 132/77; PULSE 81; RESP 18; O2SAT 98
[2022-08-14 05:46] VITALS: BP 137/67
[2022-08-14 06:01] VITALS: BP 138/66
--- NOTE | 2022-08-14 06:01 | ED.GENADULT ---
HPI - General Adult General Chief complaint: Extremity Injury, Lower Stated complaint: R ankle injury Time Seen by Provider: 08/14/22 05:27 History of Present Illness HPI narrative: Patient 66-year-old gentleman who presents emergency department with chief complaint of right ankle pain. The patient reports that about a week ago he stepped on a curb and twisted his right ankle and reports pain superior to his right ankle. The patient reports he has prior history of a fracture in that extremity and reports that the pain is worse with ambulation and improved with rest. Related Data Home Medications Medication Instructions Recorded Confirmed aripiprazole 5 mg tablet (Abilify) 5 mg PO DAILY 02/28/19 06/21/22 clonazepam 0.5 mg tablet (Klonopin) 0.5 mg PO DAILY 02/28/19 06/21/22 duloxetine 60 mg capsule,delayed 60 mg PO DAILY 02/28/19 06/21/22 release (Cymbalta) Allergies Allergy/AdvReac Type Severity Reaction Status Date / Time ibuprofen AdvReac Gastrointestinal Verified 08/14/22 05:05 Upset pregabalin [From Lyrica] AdvReac Muscle Verified 06/21/22 07:24 Spasms Review of Systems Review of Systems: A 10 system review of systems was completed on the patient and is negative except for what is stated in the HPI. Nursing and ancillary documentation was reviewed. [facility] Past Medical History Medical History Benign colon polyp Overweight Radiculopathy, lumbar region Right rotator cuff tear Wellness examination Family History Family History Father Family history of diabetes mellitus in first degree relative Sibling Family history of diabetes mellitus in first degree relative Other Cerebrovascular accident Diabetes mellitus Family history of arthritis Family history of cardiovascular disease Family history of lung disease Family history of malignant neoplasm Hypertension Social History Social History Social History: Smoking packs per day: 0.5 Smoking cigarettes per day: 10.0 Years smoked: 1 Smoking pack-years: 0.50 Smoking status: Current every day smoker Tobacco type: cigarettes Second hand tobacco smoke exposure: No Smoking end date: 04/10/16 Alcohol intake: current Drinks per week: 21 Substance use: never Substance use type: does not use Living arrangements: with family Occupation/Education: occupation Gender identity (if verbalized by the patient): Male Sexual Orientation (if Verbalized by the Patient): Straight or Heterosexual Exam Narrative: GENERAL: Well-appearing, well-nourished, and in no acute distress. HEAD: Normocephalic, atraumatic. EYES: PERRLA and EOMI. ENT: Nares clear, no rhinorrhea or epistaxis. Mucous membranes moist. NECK: Supple. CHEST: Clear to auscultation. No respiratory distress. HEART: Regular rate and rhythm. No murmur heard. Normal peripheral pulses. ABDOMEN: Soft, nontender, nondistended, normal active bowel sounds. EXTREMITIES: Normal range of motion. No edema. Tenderness to palpation to superior to the right ankle SKIN: Warm, dry, no rash. NEURO: No focal deficits. Alert and oriented x3. PSYCH: Normal mood and affect. Course Vital Signs Vital signs: Vital Signs Temperature 36.9 C 08/14/22 05:06 Pulse Rate 102 H 08/14/22 05:06 Respiratory Rate 20 08/14/22 05:06 Blood Pressure 156/138 H 08/14/22 05:06 Pulse Oximetry 100 08/14/22 05:06 Oxygen Delivery Room Air 08/14/22 05:06 Temperature 36.9 C 08/14/22 05:06 Pulse Rate 81 08/14/22 05:40 Respiratory Rate 18 08/14/22 05:40 Blood Pressure 132/77 08/14/22 05:40 Pulse Oximetry 98 08/14/22 05:40 Oxygen Delivery Room Air 08/14/22 05:06 Medical Decision Making [facility] Narrative Medical decision making narrative: [place]
== END 2022-08-14 06:54 | disposition home or self-care (01) ==
PROVIDERS: Emergency Provider Emergency Medicine; PCP Family Medicine
DX: S93.401A Sprain of unspecified ligament of right ankle, initial encounter (principal); E66.3 Overweight; Z68.29 Body mass index [BMI] 29.0-29.9, adult; Z86.010 Personal history of colon polyps; Z87.891 Personal history of nicotine dependence
CPT/HCPCS: 73610; 99283

== ENCOUNTER 2022-09-30 06:33 | Outpatient (CLI) | payer MEDICARE, OTHER, SELFPAY ==
[2022-09-30 07:31] LABS: Alanine Aminotransferase 32 U/L (6-50); Albumin Level 4.4 g/dL (3.5-5.1); Alkaline Phosphatase 106 U/L (38-126); Anion Gap 4 mmol/L (8-16); Aspartate Amino Transferase 24 U/L (17-59); Bilirubin,Total 0.5 mg/dL (0.2-1.3); Blood Urea Nitrogen 6 mg/dL (9-20); Calcium 8.8 mg/dL (8.4-10.2); Carbon Dioxide 34 mmol/L (22-30); Chloride 93 mmol/L (98-107); Estimated Glomerular Filt Rate > 60; Glucose 122 mg/dL (65-110); Potassium 3.2 mmol/L (3.4-5.0); Sodium 131 mmol/L (137-145)
[2022-09-30 09:12] LABS: Hemoglobin A1C 5.9 % (<5.7)
== END 2022-09-30 06:34 | disposition home or self-care (01) ==
PROVIDERS: PCP Family Medicine; Visit Provider Physician Assistant
DX: E11.42 Type 2 diabetes mellitus with diabetic polyneuropathy (principal); H35.033 Hypertensive retinopathy, bilateral
CPT/HCPCS: 36415; 80053; 83036

== ENCOUNTER 2022-10-20 09:33 | Outpatient (CLI) | payer MEDICARE, OTHER, SELFPAY ==
[2022-10-20 10:29] LABS: Anion Gap 2 mmol/L (8-16); Blood Urea Nitrogen 4 mg/dL (9-20); Calcium 8.9 mg/dL (8.4-10.2); Carbon Dioxide 34 mmol/L (22-30); Chloride 89 mmol/L (98-107); Estimated Glomerular Filt Rate > 60; Glucose 139 mg/dL (65-110); Potassium 3.3 mmol/L (3.4-5.0); Sodium 125 mmol/L (137-145)
== END 2022-10-20 09:34 | disposition home or self-care (01) ==
LOC: ANHLAB 09:34
PROVIDERS: PCP Family Medicine; Visit Provider Physician Assistant
DX: E87.6 Hypokalemia (principal)
CPT/HCPCS: 36415; 80048

== ENCOUNTER 2022-12-09 07:09 | Outpatient (CLI) | payer MEDICARE, OTHER, SELFPAY ==
[2022-12-09 08:25] LABS: Anion Gap 10 mmol/L (8-16); Blood Urea Nitrogen 6 mg/dL (9-20); Carbon Dioxide 29 mmol/L (22-30); Chloride 89 mmol/L (98-107); Estimated Glomerular Filt Rate > 60; Glucose 155 mg/dL (65-110); Potassium 3.2 mmol/L (3.4-5.0); Sodium 128 mmol/L (137-145)
== END 2022-12-09 07:10 | disposition home or self-care (01) ==
PROVIDERS: PCP Family Medicine; Visit Provider Physician Assistant
DX: E87.6 Hypokalemia (principal)
CPT/HCPCS: 36415; 80048

== ENCOUNTER 2022-12-22 11:37 | Outpatient (CLI) | payer MEDICARE, OTHER, SELFPAY ==
--- NOTE | ~2022-12-22 | XR_ITS ---
Thoracic spine: Clinical Indication: Radiculopathy AP and lateral views were performed. No fracture is seen. There is normal alignment of the vertebrae. The intervertebral disc spaces appe ar normal. Paravertebral soft tissues appear normal. Impression: No significant abnormalities noted. Reviewed, dictated and finalized at [facility]. Impression: No significant abnormalities noted.
== END 2022-12-22 11:38 | disposition home or self-care (01) ==
LOC: ANHIMG 11:46
PROVIDERS: PCP Family Medicine
DX: M51.37 Other intervertebral disc degeneration, lumbosacral region (principal); M51.36 Other intervertebral disc degeneration, lumbar region; Z13.89 Encounter for screening for other disorder
CPT/HCPCS: 72070

== ENCOUNTER 2022-12-31 06:54 | Outpatient (CLI) | payer MEDICARE, OTHER, SELFPAY ==
[2022-12-31 07:22] LABS: Anion Gap 5 mmol/L (8-16); Blood Urea Nitrogen 7 mg/dL (9-20); Calcium 9.3 mg/dL (8.4-10.2); Carbon Dioxide 31 mmol/L (22-30); Chloride 96 mmol/L (98-107); Estimated Glomerular Filt Rate > 60; Glucose 85 mg/dL (65-110); Potassium 3.6 mmol/L (3.4-5.0); Sodium 132 mmol/L (137-145)
== END 2022-12-31 06:55 | disposition home or self-care (01) ==
LOC: ANHLAB 06:56
PROVIDERS: PCP Family Medicine; Visit Provider Physician Assistant
DX: E87.6 Hypokalemia (principal)
CPT/HCPCS: 36415; 80048

== ENCOUNTER 2023-04-04 10:33 | Outpatient (CLI) | payer MEDICARE, OTHER, SELFPAY ==
[2023-04-04 11:09] LABS: Alanine Aminotransferase 31 U/L (6-50); Albumin Level 4.4 g/dL (3.5-5.1); Alkaline Phosphatase 116 U/L (38-126); Anion Gap 13 mmol/L (8-16); Aspartate Amino Transferase 21 U/L (17-59); Bilirubin,Total 0.5 mg/dL (0.2-1.3); Blood Urea Nitrogen 5 mg/dL (9-20); Calcium 9.1 mg/dL (8.4-10.2); Carbon Dioxide 24 mmol/L (22-30); Chloride 88 mmol/L (98-107); Estimated Glomerular Filt Rate > 60; Glucose 137 mg/dL (65-110); Potassium 3.2 mmol/L (3.4-5.0); Sodium 125 mmol/L (137-145)
[2023-04-04 11:39] LABS: Hemoglobin A1C 6.1 % (<5.7)
== END 2023-04-04 10:34 | disposition home or self-care (01) ==
LOC: ANHLAB 10:35
PROVIDERS: PCP Family Medicine; Visit Provider Physician Assistant
DX: E11.40 Type 2 diabetes mellitus with diabetic neuropathy, unspecified (principal); H35.033 Hypertensive retinopathy, bilateral
CPT/HCPCS: 36415; 80053; 83036

== ENCOUNTER 2023-04-22 09:48 | Emergency (ER) | payer MEDICARE, OTHER, SELFPAY ==
--- NOTE | ~2023-04-22 | XR_ITS ---
EXAMINATION: XR chest 1V INDICATION: Wheezing TECHNIQUE: AP view of the chest is obtained. COMPARISON: None available FINDINGS: The lungs are free of acute opacities. No pleural effusion or pneumothorax. The cardiomedia stinal silhouette is normal. IMPRESSION: 1. No acute cardiopulmonary abnormality. Reviewed, dictated and finalized at location F. ORATION SECRETARY
--- NOTE | ~2023-04-22 | CT_ITS ---
EXAMINATION: CT brain wo con INDICATION: Transient alteration of awareness COMPARISON: 04/27/2017 TECHNIQUE: Standard unenhanced head CT. The dose-length product (DLP) was 1210.67 mGy-cm. The mA was adjusted according to patient size. Iterative reconstruction technique was employed. FINDINGS: No intracranial hemorrhage, acute infarction, or abnormal mass lesion. The ventricles are n ormal. No abnormal mass effect or midline shift. The russo-white matter differentiation is normal. The basal cisterns are patent. The orbits are normal. The paranasal sinuses, mastoids and calvarium are normal. IMPRESSION: 1. No acute intracranial abnormality. Reviewed, dictated and finalized at location F. UNIT MANAGER
--- NOTE | 2023-04-22 09:52 | ED.RECABL ---
HPI - Recheck/Abnormal Lab/Rx General Chief Complaint: Recheck/Abnormal Lab/Rx Stated Complaint: low NA Time Seen by Provider: 04/22/23 09:51 Source: patient Mode of arrival: ambulatory Limitations: no limitations History of Present Illness HPI narrative: Levon is a 67-year-old male patient presenting to the ER today with complaints of low sodium level. He reports yesterday he was having some slurred speech however he has been out of his Vicodin and just started a backup yesterday. Does take Vicodin for chronic back pain and neck pain. States he was out of the Vicodin for 1 week. Today the slurred speech has resolved however he is concerned about a low sodium level. States that a couple weeks ago his sodium level was very low and he contacted his PCP today regarding his symptoms yesterday and they recommend him come to the ER to be evaluated. Related Data Home Medications Medication Instructions Recorded Confirmed aripiprazole 5 mg tablet (Abilify) 5 mg PO DAILY 02/28/19 04/04/23 clonazepam 0.5 mg tablet (Klonopin) 0.5 mg PO DAILY 02/28/19 04/04/23 duloxetine 60 mg capsule,delayed 60 mg PO DAILY 02/28/19 04/04/23 release (Cymbalta) Allergies Allergy/AdvReac Type Severity Reaction Status Date / Time ibuprofen AdvReac Gastrointestinal Verified 04/04/23 10:01 Upset pregabalin [From Lyrica] AdvReac Muscle Verified 04/04/23 10:01 Spasms Review of Systems Review of Systems: Pertinent positives per HPI. Patient denies any fever, chills, rash, headache, visual changes, dizziness, cough, shortness of breath, chest pain, palpitations, nausea, vomiting, diarrhea, constipation, abdominal pain, or any urinary issues. [facility] Past Medical History Medical History Benign colon polyp Overweight Radiculopathy, lumbar region Right rotator cuff tear Wellness examination Family History Family History Father Family history of diabetes mellitus in first degree relative Sibling Family history of diabetes mellitus in first degree relative Other Cerebrovascular accident Diabetes mellitus Family history of arthritis Family history of cardiovascular disease Family history of lung disease Family history of malignant neoplasm Hypertension Social History Social History Social History: Smoking packs per day: 0.5 Smoking cigarettes per day: 10.0 Years smoked: 1 Smoking pack-years: 0.50 Smoking status: Current every day smoker Tobacco type: cigarettes Second hand tobacco smoke exposure: No Smoking end date: 04/10/16 Alcohol intake: current Drinks per week: 21 Substance use: never Substance use type: does not use Living arrangements: with family Occupation/Education: occupation Gender identity (if verbalized by the patient): Male Sexual Orientation (if Verbalized by the Patient): Straight or Heterosexual Comments At the time of my signature, I reviewed and agree with the nursing past medical, surgical, social, and family history. There is no relevant family history pertinent to the patient complaint. Exam Narrative: General: Well-developed, well nourished, in no apparent distress Head: Normocephalic, atraumatic Eyes: Pupils equally round and reactive to light bilaterally, EOM intact, sclera and conjunctive clear, no discharge, lids normal Ears: TMs intact and clear, ear canals clear, no drainage, grossly hearing normal. Nose: Nares patent, no discharge, no inflammation, no sinus tenderness. Mouth: Oral pharynx without lesions or masses, good dentition, MMM. Neck: Supple, trachea midline, no enlargement of anterior or posterior cervical nodes, no thyroid masses or goiter palpable. Cardio: Regular rate and rhythm, s1 and s2 normal, no murmur appreciated. Resp: Clear to auscultation bi
[2023-04-22 09:54] VITALS: BP 201/88; PULSE 124; RESP 20; TEMP 36.4; O2SAT 98
--- NOTE | 2023-04-22 09:59 | ECG_ITS ---
Measurements Intervals [place] Rate: 116 P: 48 NC: 193 QRS: 26 QRSD: 98 T: 57 QT: 424 QTc: 590 Interpretive Statements SINUS TACHYCARDIA INCOMPLETE RIGHT BUNDLE BRANCH BLOCK DELAYED PRECORDIAL R/S TRANSITION NONSPECIFIC T-WAVE ABNORMALITY- ANT/HIGH LAT LEADS BASELINE ARTIFACT- I, II, AVR, V1 ABNORMAL ECG NO PREVIOUS ECG AVAILABLE FOR COMPARISON Electronically Signed On 04-22-2023 12:30:58 ROLLER DIE CUTTING MACHINE OPERATOR by Pedro Moreno D.O.
[2023-04-22 10:10] LABS: Basophils Percent Auto 0.4 % (0.2-1.2); Eosinophils Absolute Auto 0.1 K/mm3 (0-0.3); Hematocrit 40.5 % (42.0-52.0); Hemoglobin 13.4 g/dL (14.0-18.0); Immature Granulocyte Absolute 0.05 K/mm3 (0.00-0.031); Immature Granulocyte Percent A 0.5 % (0-0.5); Lymphocytes Absolute Auto 1.57 K/mm3 (0.9-3.2); Lymphocytes Percent Auto 16.8 % (18.3-44.2); Mean Corpuscular HGB Conc 33.1 g/dl (32-36); Mean Corpuscular Hemoglobin 30.6 pg (26-34); Mean Corpuscular Volume 92.5 fl (80-100); Monocytes Absolute Auto 1.1 K/mm3 (0.1-0.6); Monocytes Percent Auto 12.1 % (2.6-8.5); Neutrophils Absolute Auto 6.5 K/mm3 (1.3-6.7); Neutrophils Percent Auto 69.2 % (45.5-73.1); Platelet Count Result 290 k/mm3 (150-375); Red Blood Count 4.38 M/mm3 (4.6-6.20); Red Cell Distribution Width 12.9 % (11.5-14.5); White Blood Count 9.3 K/mm3 (4.5-10.0)
[2023-04-22 10:27] LABS: Alanine Aminotransferase 35 U/L (6-50); Albumin Level 4.8 g/dL (3.5-5.1); Alkaline Phosphatase 128 U/L (38-126); Anion Gap 11 mmol/L (8-16); Aspartate Amino Transferase 25 U/L (17-59); Bilirubin,Total 0.9 mg/dL (0.2-1.3); Blood Urea Nitrogen 9 mg/dL (9-20); Calcium 9.9 mg/dL (8.4-10.2); Carbon Dioxide 28 mmol/L (22-30); Chloride 95 mmol/L (98-107); Estimated CRCL calculation 120 ml/min; Estimated Glomerular Filt Rate > 60; Glucose 129 mg/dL (65-110); Potassium 3.4 mmol/L (3.4-5.0); Sodium 134 mmol/L (137-145)
[2023-04-22 10:39] VITALS: O2SAT 98
[2023-04-22 10:41] VITALS: BP 175/82; PULSE 123; RESP 20; TEMP 37.2; O2SAT 98
[2023-04-22] MEDS: SODIUM CHLORIDE 0.9% IV 1,000 ML 999 ML IV CONT (10:42)
[2023-04-22 11:04] LABS: Appearance Urine Clear (Clear); Bilirubin Urine Negative (Negative); Blood Urine Negative (Negative); Color Urine Yellow (Yellow); Glucose Urine UA Negative (Negative); Ketones Urine Negative (Negative); Leukocyte Esterase Ur Negative LEU/UL (Negative); Nitrate Urine Negative (Negative); Protein Urine Negative (Negative); Specific Grav Ur 1.005 (1.001-1.035); Urobilinogen Urine 0.2 mg/dL (<2.0); pH Urine 6.5 (5.0-9.0)
[2023-04-22 11:15] LABS: Add Urine Microscopic? NO
[2023-04-22 12:12] VITALS: BP 174/80; PULSE 80; RESP 20; TEMP 36.6; O2SAT 95
== END 2023-04-22 12:14 | disposition home or self-care (01) ==
PROVIDERS: Emergency Provider Nurse Practitioner Family; PCP Family Medicine
DX: E87.1 Hypo-osmolality and hyponatremia (principal); E66.3 Overweight; Z68.33 Body mass index [BMI] 33.0-33.9, adult; Z87.891 Personal history of nicotine dependence; Z86.010 Personal history of colon polyps; I45.10 Unspecified right bundle-branch block; R00.0 Tachycardia, unspecified; R94.31 Abnormal electrocardiogram [ECG] [EKG]
CPT/HCPCS: 36415; 70450; 71045; 80053; 81003; 85025; 93005; 99284; J7030

== ENCOUNTER 2023-05-05 10:07 | Outpatient (CLI) | payer MEDICARE, OTHER, SELFPAY ==
--- NOTE | ~2023-05-05 | XR_ITS ---
XR knee RT 3V 05/05/2023 10:22 Indication: Right knee pain Procedure: 3 views right knee Comparison: 08/17/2011 Findings: No fracture, subluxation or dislocation. No significant joint effusion. There is anatomic a lignment. No foreign bodies. Impression: 1: No significant bone or joint abnormality. Reviewed, dictated and finalized at location B. ABUSE WORKER Impression: 1: No significant bone or joint abnormality.
== END 2023-05-05 10:08 | disposition home or self-care (01) ==
PROVIDERS: PCP Family Medicine; Visit Provider Physician Assistant
DX: M25.561 Pain in right knee (principal)
CPT/HCPCS: 73562

== ENCOUNTER 2023-05-17 13:49 | Outpatient (CLI) | payer MEDICARE, OTHER, SELFPAY ==
--- NOTE | ~2023-05-17 | XR_ITS ---
EXAMINATION: XR shoulder RT min 2V DATE: 05/17/2023 14:07 INDICATION: Right shoulder pain. Fall. TECHNIQUE: 4 views of right shoulder were obtained. COMPARISON: Right shoulder radiographs 05/16/2011 FINDINGS: Bone alignment is normal. No fracture. There is mild osteoarthritis of glenohumeral joint a nd acromioclavicular joint. IMPRESSION: 1. Mild polyarticular osteoarthritis. Reviewed, dictated and finalized at location E. NT DEVELOPMENT MANAGER
== END 2023-05-17 13:50 | disposition home or self-care (01) ==
PROVIDERS: PCP Family Medicine; Visit Provider Physician Assistant
DX: M19.011 Primary osteoarthritis, right shoulder (principal)
CPT/HCPCS: 73030

== ENCOUNTER → 2023-05-19 12:38 | Outpatient (CLI) | payer MEDICARE, OTHER, SELFPAY ==
--- NOTE | ~2023-05-19 | XR_ITS ---
EXAMINATION: XR lumbar spine 2-3V DATE: 05/19/2023 13:58 INDICATION: Lumbar radiculopathy TECHNIQUE: Anteroposterior and lateral views of the lumbar spine, and cone-down lateral view of the l umbosacral junction were obtained. COMPARISON: 04/16/2022 FINDINGS: There are 2 mm of anterolisthesis of L4 on L5. Vertebral body heights are maintained. There is severe loss of intervertebral disc space height at L5-S1 and mild loss of intervertebral disc spa ce height at L4-5. Small degenerative osteophytes project from the anterior endplates of multiple lluvia tebral bodies. There is severe facet joint osteoarthritis of the lower lumbar spine. Calcified athero sclerosis is noted. A large volume of colonic stool is present. IMPRESSION: 1. Severe lumbar spondylosis without acute findings or significant interval change. Reviewed, dictated and finalized at location B. UTER AIDED DRAFTER IMPRESSION: 1. Severe lumbar spondylosis without acute findings or significant interval vidal nge.
--- NOTE | ~2023-05-19 | XR_ITS ---
EXAMINATION:XR cervical spine 4-5V DATE: 05/19/2023 13:58 INDICATION: Cervical radiculopathy TECHNIQUE: AP, lateral, lateral swimmers and odontoid views of the cervical spine are provided. COMPARISON: 04/16/2022 FINDINGS: There are 3 mm of chronic anterolisthesis of C4 on C5. The odontoid process is intact. No f racture is identified. There is moderate to severe loss of intervertebral disc space height at C5-6 a nd C6-7. The vertebral body heights are maintained. There is multilevel severe facet and uncovertebra l joint osteoarthritis. Prevertebral soft tissues are normal. IMPRESSION: 1. Severe cervical spondylosis without acute findings or significant interval change. Reviewed, dictated and finalized at location B. INE WOOD SANDER IMPRESSION: 1. Severe cervical spondylosis without acute findings or significant interval david botello
== END ==
PROVIDERS: PCP Pain Medicine Interventional Pain Medicine; Visit Provider Pain Medicine Interventional Pain Medicine
DX: M51.36 Other intervertebral disc degeneration, lumbar region (principal); M51.37 Other intervertebral disc degeneration, lumbosacral region; Z79.891 Long term (current) use of opiate analgesic; Z13.89 Encounter for screening for other disorder; M47.26 Other spondylosis with radiculopathy, lumbar region; M47.22 Other spondylosis with radiculopathy, cervical region
CPT/HCPCS: 72050; 72100

== ENCOUNTER 2023-05-20 12:27 | Emergency (ER) | payer MEDICARE, OTHER, SELFPAY ==
[2023-05-20 12:38] VITALS: BP 147/82; PULSE 110; RESP 16; TEMP 36.4; O2SAT 96
[2023-05-20 14:45] VITALS: BP 153/81; PULSE 107; RESP 18; O2SAT 98
[2023-05-20 14:58] VITALS: PULSE 108; O2SAT 98
[2023-05-20 17:24] VITALS: BP 107/63; PULSE 104; RESP 18; O2SAT 94
--- NOTE | 2023-05-20 17:47 | ED.GENADULT ---
HPI - General Adult General Chief complaint: Unspecified Stated complaint: constipation Time Seen by Provider: 05/20/23 15:03 Source: patient and family Limitations: no limitations History of Present Illness HPI narrative: Patient is a 67-year-old male presents to the emergency department complaining of constipation. Patient states he had his annual back and neck x-rays with his pain doctor recently and it showed that he had a large colonic stool burden and so he decided to try an enema at home around 11 30 this morning and did not have any significant bowel movement prior to coming to the emergency department today. Patient admits to history of constipation in the past but denies being on any stool softeners noted bases. Patient states she has been taking Vicodin daily for the past 10 years the patient is last significant bowel movement was 1 week ago. Patient is to a colonoscopy in the past most recently was 3 years ago. Patient denies any significant weight loss. Patient denies abdominal pain, vomiting, nausea, recent injuries, recent illness, difficulty urinating. Related Data Home Medications Medication Instructions Recorded Confirmed aripiprazole 5 mg tablet (Abilify) 5 mg PO DAILY 02/28/19 05/20/23 clonazepam 0.5 mg tablet (Klonopin) 0.5 mg PO DAILY 02/28/19 05/20/23 duloxetine 60 mg capsule,delayed 60 mg PO DAILY 02/28/19 05/20/23 release (Cymbalta) Allergies Allergy/AdvReac Type Severity Reaction Status Date / Time ibuprofen AdvReac Gastrointestinal Verified 05/20/23 15:03 Upset pregabalin [From Lyrica] AdvReac Muscle Verified 05/20/23 15:03 Spasms Review of Systems Review of Systems: A 10 system review of systems was completed on the patient and is negative except for what is stated in the HPI. Nursing and ancillary documentation was reviewed. [facility] Past Medical History Medical History Benign colon polyp Overweight Radiculopathy, lumbar region Right rotator cuff tear Wellness examination Family History Family History Father Family history of diabetes mellitus in first degree relative Sibling Family history of diabetes mellitus in first degree relative Other Cerebrovascular accident Diabetes mellitus Family history of arthritis Family history of cardiovascular disease Family history of lung disease Family history of malignant neoplasm Hypertension Social History Social History (Updated 05/17/23 @ 13:31 by Jane Duran) Social History: Smoking packs per day: 0.5 Smoking cigarettes per day: 10.0 Years smoked: 1 Smoking pack-years: 0.50 Smoking status: Former smoker Tobacco type: cigarettes Second hand tobacco smoke exposure: No Smoking end date: 03/13/23 Alcohol intake: former Alcohol use details: September 11, 2022 pt quit Substance use: never Substance use type: does not use Do You Feel Safe in your Home?: Yes Lack of Transportation: No Lack of Food: Never True Current Housing: I Have Housing Concerned About Future Housing: No Difficulty Paying Gas/Electric Bills: No Difficulty Paying for Meds: No Currently Unemployed: YES Education: Don't Know Difficulty w/ Childcare or Family Care: No Living arrangements: with family Occupation/Education: retired Gender identity (if verbalized by the patient): Male Sexual Orientation (if Verbalized by the Patient): Straight or Heterosexual Comments At time of signature, I have reviewed and agree with nursing past medical, surgical, social and family history unless otherwise noted. Please see the nursing chart for further information. There is no relevant family history pertinent to the presenting complaint. Exam Narrative: CONST: No acute distress. Well nourished. HENMT: Head is normocephalic and atraumatic. Moist mucous membranes. No posterior destiny
== END 2023-05-20 18:07 | disposition home or self-care (01) ==
PROVIDERS: Emergency Provider Student in an Organized Health Care Education/Training Program; PCP Pain Medicine Interventional Pain Medicine
DX: K59.00 Constipation, unspecified (principal); Z79.899 Other long term (current) drug therapy; Z87.891 Personal history of nicotine dependence
CPT/HCPCS: 99284

== ENCOUNTER 2023-06-27 13:19 | Outpatient (CLI) | payer MEDICARE, OTHER, SELFPAY ==
--- NOTE | ~2023-06-27 | MR_ITS ---
MRI of the cervical spine Clinical History: Radiculopathy Technique: Axial T2-weighted and gradient images, and sagittal T1-weighted, T2-weighted, and STIR shawn ges were acquired. Findings: No acute fracture identified. There is reversal normal cervical lordosis. There is 3 mm ant erolisthesis of C3 over C4, and of C4 over C5. No suspicious bone marrow signal abnormality seen. The re is advanced degenerative change at the articulation of the odontoid process with the anterior arch of C1. At C2-C3, there is minimal disc osteophyte complex. There is bilateral facet arthropathy, left worse than right. There is left neural foraminal narrowing. Right neural foramen preserved. No central david l stenosis or cord compression. At C3-C4, there is bilateral facet arthropathy, left worse than right, with left neural foraminal shaheen rowing. Right neural foramen preserved. No central canal stenosis or cord compression. At C4-C5, there is minimal disc osteophyte complex. There is bilateral facet arthropathy with left ne ural foraminal narrowing. At C5-C6, there is advanced degenerative disc narrowing. Disc osteophyte complex results in mild david l stenosis. There is bilateral neural foraminal narrowing. At C6-C7, there is advanced degenerative disc narrowing. Disc osteophyte complex results in mild david l stenosis. There is bilateral neural foraminal narrowing. No abnormal signal in the spinal cord. Paravertebral soft tissues are unremarkable. Impression: Moderate degenerative spondylosis, as above. Reversal normal cervical lordosis with 3 mm anterolisthesis of C3 over C4, and of C4 over C5. Reviewed, dictated and finalized at [facility]. Impression: Moderate degenerative spondylosis, as above. Reversal normal cervical lordosis with 3 mm anterolisthesis of C3 over C4, and of C4 over C5.
== END 2023-06-27 13:20 ==
LOC: MICIMG 13:20
PROVIDERS: PCP Family Medicine; Visit Provider Pain Medicine Interventional Pain Medicine
DX: M47.22 Other spondylosis with radiculopathy, cervical region (principal); M51.37 Other intervertebral disc degeneration, lumbosacral region; M51.36 Other intervertebral disc degeneration, lumbar region; Z13.89 Encounter for screening for other disorder; Z79.891 Long term (current) use of opiate analgesic
CPT/HCPCS: 72141

== ENCOUNTER 2023-06-30 08:04 | Outpatient (CLI) | payer MEDICARE, OTHER, SELFPAY ==
--- NOTE | ~2023-06-30 | CT_ITS ---
CT Scan of the Chest without Contrast: Clinical Indication: Lung cancer screening, personal history of nicotine dependence Technique: Contiguous sections were acquired throughout the chest without intravenous contrast. Dose reduction technique was used on this scan by utilizing automated exposure control and iterative recon struction technique. The dose-length product (DLP) was 270.52 mGy-cm. COMPARISON: 06/28/2022 Findings: There is no evidence of any significant mediastinal, hilar or axillary lymphadenopathy. Coronary calc ifications are present. There is no evidence of pleural or pericardial effusion. Stable 2 mm apical pulmonary nodule. Mild emphysema. Images through the upper abdomen reveal tiny gallstone. Impression: Lung RADS 2: Benign appearance. 12 month follow-up screening CT advised. Reviewed, dictated and finalized at location . Impression: Lung RADS 2: Benign appearance. 12 month follow-up screening CT advised.
== END 2023-06-30 08:05 ==
LOC: MICIMG 08:05
PROVIDERS: PCP Family Medicine; Visit Provider Physician Assistant
DX: Z12.2 Encounter for screening for malignant neoplasm of respiratory organs (principal); Z87.891 Personal history of nicotine dependence
CPT/HCPCS: 71271

== ENCOUNTER 2023-07-17 09:11 | Outpatient (CLI) | payer MEDICARE, OTHER, SELFPAY ==
--- NOTE | ~2023-07-17 | CT_ITS ---
Non-contrast CT scan of the Abdomen and Pelvis Clinical indication: Chronic pain Technique: 2.5 mm axial scans were obtained through the abdomen and pelvis without intravenous or or al contrast. Dose reduction technique was used on this scan by utilizing automated exposure control a nd iterative reconstruction technique. The dose-length product (DLP) was 1070.97 mGy-cm. Findings: Images through the lung bases reveal no abnormalities. There is no evidence of renal or ureteral calculi. The kidneys and the ureters are nondilated. The liver, spleen, pancreas, and adrenals appear normal. Tiny gallstone present. There are atheroscle rotic calcifications of the aorta. There is no evidence of bowel obstruction. Images through the pelvis were performed. There is no evidence of ascites or lymphadenopathy. Urinary bladder unremarkable. No pelvic mass seen. No ascites. Impression: Cholelithiasis. Reviewed, dictated and finalized at [facility]. Impression: Cholelithiasis.
== END 2023-07-17 09:12 ==
LOC: MICIMG 09:12
PROVIDERS: PCP Family Medicine; Visit Provider Surgery
DX: R10.31 Right lower quadrant pain (principal); G89.29 Other chronic pain; K80.20 Calculus of gallbladder without cholecystitis without obstruction
CPT/HCPCS: 74176

== ENCOUNTER 2023-08-19 06:41 | Outpatient (CLI) | payer MEDICARE, OTHER, SELFPAY ==
[2023-08-19 07:58] LABS: Hemoglobin 12.3 g/dL (14.0-18.0); Mean Corpuscular HGB Conc 33.2 g/dl (32-36); Mean Corpuscular Hemoglobin 30.6 pg (26-34); Mean Platelet Volume 9.2 fl (7.4-10.4); Platelet Count Result 262 k/mm3 (150-375); Red Blood Count 4.02 M/mm3 (4.6-6.20); Red Cell Distribution Width 13.3 % (11.5-14.5); White Blood Count 7.2 K/mm3 (4.5-10.0)
[2023-08-19 08:07] LABS: Alanine Aminotransferase 36 U/L (6-50); Albumin Level 4.3 g/dL (3.5-5.1); Alkaline Phosphatase 137 U/L (38-126); Anion Gap 5 mmol/L (4-12); Aspartate Amino Transferase 27 U/L (17-59); Bilirubin,Total 0.8 mg/dL (0.2-1.3); Blood Urea Nitrogen 8 mg/dL (9-20); Calcium 9.6 mg/dL (8.4-10.2); Carbon Dioxide 30 mmol/L (22-30); Chloride 97 mmol/L (98-107); Cholesterol 115 mg/dL (0-200); Estimated Glomerular Filt Rate > 60; Glucose 111 mg/dL (65-110); HDL Direct 53 mg/dL; Potassium 3.7 mmol/L (3.4-5.0); Sodium 132 mmol/L (137-145); Triglycerides 111 mg/dL (<150)
[2023-08-19 08:18] LABS: LDL Cholesterol Direct 56 mg/dL
[2023-08-19 09:07] LABS: Hemoglobin A1C 6.1 % (<5.7)
[2023-08-19 10:03] LABS: Appearance Urine Clear (Clear); Bacteria Urine None Seen /hpf; Bilirubin Urine Negative (Negative); Blood Urine Negative (Negative); Color Urine Yellow (Yellow); Glucose Urine UA Negative (Negative); Ketones Urine Negative (Negative); Leukocyte Esterase Ur Trace LEU/UL (Negative); Nitrate Urine Negative (Negative); Non Pathogenic Casts 0-2; Protein Urine Negative (Negative); RBC Urine 0-2 /hpf (0-2); Specific Grav Ur 1.008 (1.001-1.035); Squamous Epithelial Cell Urine None Seen /hpf (Few); Urobilinogen Urine 0.2 mg/dL (<2.0); WBC Urine 0-5 /hpf (0-3); pH Urine 5.5 (5.0-9.0)
[2023-08-19 10:07] LABS: Add Urine Microscopic? YES
== END 2023-08-19 06:42 | disposition home or self-care (01) ==
PROVIDERS: PCP Family Medicine; Visit Provider Physician Assistant Medical
DX: H35.30 Unspecified macular degeneration (principal); I10 Essential (primary) hypertension; E11.40 Type 2 diabetes mellitus with diabetic neuropathy, unspecified; N52.9 Male erectile dysfunction, unspecified; Z00.00 Encounter for general adult medical examination without abnormal findings; E78.00 Pure hypercholesterolemia, unspecified
CPT/HCPCS: 36415; 80053; 80061; 81001; 83036; 84443; 85027

== ENCOUNTER 2023-09-01 06:45 | Outpatient (CLI) | payer MEDICARE, OTHER, SELFPAY ==
[2023-09-01 08:03] LABS: Hematocrit 38.6 % (42.0-52.0); Hemoglobin 13.3 g/dL (14.0-18.0); Mean Corpuscular HGB Conc 34.5 g/dl (32-36); Mean Corpuscular Hemoglobin 30.9 pg (26-34); Mean Corpuscular Volume 89.8 fl (80-100); Platelet Count Result 362 k/mm3 (150-375); Red Cell Distribution Width 13.4 % (11.5-14.5); White Blood Count 10.5 K/mm3 (4.5-10.0)
[2023-09-01 08:19] LABS: Iron 84 ug/dL (49-181)
[2023-09-01 08:29] LABS: Percent Iron Saturation 24 % (20-50)
== END 2023-09-01 06:46 | disposition home or self-care (01) ==
PROVIDERS: PCP Family Medicine; Visit Provider Physician Assistant Medical
DX: D64.9 Anemia, unspecified (principal); R35.1 Nocturia; R35.0 Frequency of micturition; Z80.42 Family history of malignant neoplasm of prostate; Z12.5 Encounter for screening for malignant neoplasm of prostate
CPT/HCPCS: 36415; 83540; 83550; 85027

== ENCOUNTER 2023-09-14 01:16 | Emergency (ER) | payer MEDICARE, OTHER, SELFPAY ==
[2023-09-14 01:19] VITALS: BP 193/81; PULSE 88; RESP 23; TEMP 36.1; O2SAT 97
[2023-09-14 01:48] VITALS: BP 142/73; PULSE 110; RESP 19; O2SAT 96
--- NOTE | 2023-09-14 02:07 | ECG_ITS ---
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 Measurements Intervals [place]itus Rate: 105 P: 29 TN: 173 QRS: 8 QRSD: 95 T: 40 QT: 326 QTc: 431 Interpretive Statements SINUS TACHYCARDIA WITH OCCASIONAL SUPRAVENTRICULAR PREMATURE COMPLEXES INCOMPLETE RIGHT BUNDLE BRANCH BLOCK [90+ ms QRS DURATION, TERMINAL R IN V1/V2, 40+ ms S IN I/aVL/V4/V5/V6] No previous ECG available for comparison Electronically Signed On 09-14-2023 13:41:22 CDT by Broderick Hollins M.D.
[2023-09-14 02:22] LABS: Basophils Percent Auto 0.5 % (0.2-1.2); Eosinophils Absolute Auto 0.1 K/mm3 (0-0.3); Eosinophils Percent Auto 1.7 % (0-4.4); Hematocrit 37.1 % (42.0-52.0); Hemoglobin 12.9 g/dL (14.0-18.0); Immature Granulocyte Absolute 0.02 K/mm3 (0.00-0.031); Immature Granulocyte Percent A 0.2 % (0-0.5); Lymphocytes Absolute Auto 1.84 K/mm3 (0.9-3.2); Lymphocytes Percent Auto 22.1 % (18.3-44.2); Mean Corpuscular HGB Conc 34.8 g/dl (32-36); Mean Corpuscular Hemoglobin 30.8 pg (26-34); Mean Corpuscular Volume 88.5 fl (80-100); Mean Platelet Volume 8.7 fl (7.4-10.4); Monocytes Percent Auto 12.4 % (2.6-8.5); Neutrophils Absolute Auto 5.3 K/mm3 (1.3-6.7); Neutrophils Percent Auto 63.1 % (45.5-73.1); Platelet Count Result 232 k/mm3 (150-375); Red Blood Count 4.19 M/mm3 (4.6-6.20); Red Cell Distribution Width 13.6 % (11.5-14.5); White Blood Count 8.3 K/mm3 (4.5-10.0)
[2023-09-14 02:29] VITALS: RESP 14; O2SAT 100
[2023-09-14 02:33] LABS: Alanine Aminotransferase 25 U/L (6-50); Albumin Level 4.6 g/dL (3.5-5.1); Alkaline Phosphatase 108 U/L (38-126); Anion Gap 6 mmol/L (4-12); Aspartate Amino Transferase 20 U/L (17-59); Bilirubin,Total 0.7 mg/dL (0.2-1.3); Blood Urea Nitrogen 13 mg/dL (9-20); Calcium 9.5 mg/dL (8.4-10.2); Carbon Dioxide 28 mmol/L (22-30); Chloride 96 mmol/L (98-107); Estimated CRCL calculation 106 ml/min; Estimated Glomerular Filt Rate > 60; Glucose 131 mg/dL (65-110); Potassium 3.8 mmol/L (3.4-5.0); Sodium 130 mmol/L (137-145)
--- NOTE | 2023-09-14 03:01 | ED.GENADULT ---
HPI - General Adult General Chief complaint: Unspecified Stated complaint: high blood pressure Time Seen by Provider: 09/14/23 02:49 History of Present Illness HPI narrative: Patient is a 67-year-old male who presents to the emergency department this evening complaining of an elevated blood pressure. Patient states that he felt funny at and decided to check his blood pressure and noted to be in the 180 systolic. Patient states that he does take blood pressure medication regularly, however he does not check his blood pressure regularly unless he needed 2 or less he feels sick. He denies any specific symptoms including chest pain or shortness of breath, denies any nausea or vomiting, any abdominal pain, any dysuria or hematuria, constipation diarrhea, melena, hematochezia, fevers or chills. No additional symptoms or concerns at this time. Related Data Home Medications Medication Instructions Recorded Confirmed aripiprazole 5 mg tablet (Abilify) 5 mg PO DAILY 02/28/19 08/17/23 duloxetine 60 mg capsule,delayed 60 mg PO DAILY 02/28/19 08/17/23 release (Cymbalta) hydroxychloroquine 200 mg tablet mg PO BID 08/17/23 08/17/23 Allergies Allergy/AdvReac Type Severity Reaction Status Date / Time ibuprofen AdvReac Gastrointestinal Verified 08/17/23 14:04 Upset pregabalin [From Lyrica] AdvReac Muscle Verified 08/17/23 14:04 Spasms Review of Systems Review of Systems: All systems are reviewed and are negative unless stated otherwise in the HPI. [facility] Past Medical History Medical History Benign colon polyp Overweight Radiculopathy, lumbar region Right rotator cuff tear Wellness examination Surgical History Surgical History H/O carpal tunnel repair H/O excision of mass benign cyst excised from ear H/O eye surgery H/O vasectomy Trigger finger Family History Family History Father Family history of diabetes mellitus in first degree relative Sibling Family history of diabetes mellitus in first degree relative Other Cerebrovascular accident Diabetes mellitus Family history of arthritis Family history of cardiovascular disease Family history of lung disease Family history of malignant neoplasm Hypertension Social History Social History Social History: Smoking packs per day: 0.5 Smoking cigarettes per day: 10.0 Years smoked: 1 Smoking pack-years: 0.50 Smoking status: Former smoker Tobacco type: cigarettes Second hand tobacco smoke exposure: No Smoking end date: 03/13/23 Alcohol intake: former Alcohol use details: September 11, 2022 pt quit Substance use: never Substance use type: does not use Do You Feel Safe in your Home?: Yes Lack of Transportation: No Lack of Food: Never True Current Housing: I Have Housing Concerned About Future Housing: No Difficulty Paying Gas/Electric Bills: No Difficulty Paying for Meds: No Currently Unemployed: YES Education: Don't Know Difficulty w/ Childcare or Family Care: No Living arrangements: with family Occupation/Education: retired Gender identity (if verbalized by the patient): Male Sexual Orientation (if Verbalized by the Patient): Straight or Heterosexual Exam Narrative: General: Alert, awake, afebrile, in no acute distress. HEENT: PERRL, no rhinorrhea, no post nasal drip, oropharynx clear. Cardiovascular: Regular rate and rhythm, no murmurs, rubs or gallops, no peripheral edema. Respiratory: Clear to auscultation bilaterally, no tachypnea, no wheezing, no rhonchi, no rubs, no respiratory distress. Abdomen: Soft, nontender, nondistended, no rebound, no guarding, no peritoneal signs. Musculoskeletal: No joint swelling or deformity, normal muscle tone. Skin: No rashes or petec
== END 2023-09-14 03:46 | disposition home or self-care (01) ==
PROVIDERS: Emergency Provider Emergency Medicine; PCP Family Medicine
DX: I10 Essential (primary) hypertension (principal); E66.3 Overweight; Z68.34 Body mass index [BMI] 34.0-34.9, adult; Z86.010 Personal history of colon polyps; Z87.891 Personal history of nicotine dependence; Z79.899 Other long term (current) drug therapy; R00.0 Tachycardia, unspecified; I45.10 Unspecified right bundle-branch block; I49.1 Atrial premature depolarization
CPT/HCPCS: 36415; 80053; 84153; 85025; 93005; 99283

== ENCOUNTER 2023-09-14 10:12 | Outpatient (NON) | payer MEDICARE, OTHER, SELFPAY ==
[2023-09-14 12:32] LABS: Prostate Specific Antigen 0.8 ng/mL (< OR = 4.0)
== END 2023-09-14 10:13 | disposition home or self-care (01) ==
PROVIDERS: PCP Family Medicine; Visit Provider Physician Assistant Medical
DX: Z12.5 Encounter for screening for malignant neoplasm of prostate (principal); R35.0 Frequency of micturition; D64.9 Anemia, unspecified; R35.1 Nocturia; Z80.42 Family history of malignant neoplasm of prostate
CPT/HCPCS: 36415; 84153

== ENCOUNTER 2023-10-03 01:19 | Day surgery (SDC) | payer MEDICARE, OTHER, SELFPAY ==
[2023-09-14 14:41] VITALS: BMI 34.3
[2023-10-03 13:01] VITALS: BP 136/71; PULSE 108; RESP 18; TEMP 36.2; O2SAT 97
[2023-10-03] MEDS: LACTATED RINGERS 1,000 ML 150 ML IV CONT (13:13)
--- NOTE | 2023-10-03 13:33 | PM.HPGS ---
History of Present Illness History of Present Illness Consent: Risks, benefits, and alternatives have been discussed and questions answered. Patient agrees to proceed with procedure. Chief complaint: GERD, Melena, JACLYN, person hx. colon polyps Narrative: Mathieu Mcgarry is a 67 year old male here for egd and colonoscopy, routine blood work found to have anemia. Last colonoscopy 2 years ago per patient, never had egd. Review of Systems Review of Systems: All systems reviewed & are unremarkable except as noted in HPI and below PMFSH Past Medical History Medical History (Updated 10/03/23 @ 13:34 by Prashanth Reyes MD) Benign colon polyp Chronic obstructive pulmonary disease Essential hypertension Glaucoma Iron deficiency anemia Lichen planus Macular degeneration of both eyes Overweight Pars planitis of both eyes PTSD (post-traumatic stress disorder) Radiculopathy, lumbar region Right rotator cuff tear Wellness examination Surgical History Surgical History H/O carpal tunnel repair H/O excision of mass benign cyst excised from ear H/O eye surgery H/O vasectomy Trigger finger Family History Family History Father Family history of diabetes mellitus in first degree relative Sibling Family history of diabetes mellitus in first degree relative Other Cerebrovascular accident Diabetes mellitus Family history of arthritis Family history of cardiovascular disease Family history of lung disease Family history of malignant neoplasm Hypertension Social History Social History (Updated 09/14/23 @ 09:57 by Katy Leggett CMA) Social History: Smoking packs per day: 0.5 Smoking cigarettes per day: 10.0 Years smoked: 40 Smoking pack-years: 20.00 Smoking status: Former smoker Tobacco type: cigarettes Second hand tobacco smoke exposure: No Smoking end date: 03/13/23 Alcohol intake: former Alcohol use details: September 11, 2022 pt quit Substance use: never Substance use type: does not use Do You Feel Safe in your Home?: Yes Lack of Transportation: No Lack of Food: Never True Current Housing: I Have Housing Concerned About Future Housing: No Difficulty Paying Gas/Electric Bills: No Difficulty Paying for Meds: No Currently Unemployed: YES Education: High School Diploma/GED Difficulty w/ Childcare or Family Care: No Living arrangements: other Additional living arrangements comments: with sp Occupation/Education: retired Gender identity (if verbalized by the patient): Male Sexual Orientation (if Verbalized by the Patient): Straight or Heterosexual Meds Home Medications and Allergies Home Medications Medication Instructions Recorded Confirmed Type aripiprazole 5 mg tablet (Abilify) 5 mg PO DAILY 02/28/19 09/14/23 History duloxetine 60 mg capsule,delayed 60 mg PO DAILY 02/28/19 09/14/23 History release (Cymbalta) amlodipine 10 mg-valsartan 320 mg See Rx Instructions .Route 07/15/22 09/14/23 Rx tablet .COMPLEX #90 tabs sildenafil 50 mg tablet (Viagra) 50 mg PO DAILY PRN sexual activity 09/16/22 09/14/23 Rx #10 tabs rabeprazole 20 mg tablet,delayed 20 mg PO DAILY #90 tabs 10/27/22 09/14/23 Rx release (AcipHex) potassium chloride 10 mEq 30 meq PO DAILY #90 tabs 04/04/23 09/14/23 Rx tablet,extended release hydrocodone 10 mg-acetaminophen 1 tablet PO Q8H pain #1 tablet 05/23/23 09/14/23 Rx 300 mg tablet atorvastatin 10 mg tablet 10 mg PO DAILY #90 tabs 06/20/23 09/14/23 Rx metoprolol succinate 25 mg 12.5 mg PO DAILY #30 tabs 07/30/23 09/14/23 Rx tablet,extended release 24 hr hydroxychloroquine 200 mg tablet 200 mg PO BID 08/17/23 09/14/23 History hydrochlorothiazide 25 mg tablet 25 mg PO DAILY #90 tabs 08/28/23 09/14/23 Rx latanoprost 0.005 % eye drops 1 drp EACH EYE DAILY 09/14/23 09/14/23 History predni
--- NOTE | 2023-10-03 13:41 | WPDANESEPPF ---
Anes - Initial Pre Proc Eval Procedure: Operation Date: 10/03/23 14:30 Proposed Procedures p Esophagogastroduodenoscopy & Colonoscopy - Prashanth Reyes MD Date/Time: 10/03/23 13:41 Surgeon: Prashanth Reyes MD Pre Op Diagnosis: GERD, Melena, JACLYN, person hx. colon polyps Patient Data Age: 67 Gender: M Height: 1.75 m Weight: 101.4 kg Last Vital Signs Temp 97.1 F L 10/03/23 13:01 Pulse 108 H 10/03/23 13:01 Resp 18 10/03/23 13:01 BP 136/71 10/03/23 13:01 Pulse Ox 97 10/03/23 13:01 O2 Del Method Room Air 10/03/23 13:01 Allergies Allergy/AdvReac Type Severity Reaction Status Date / Time ibuprofen AdvReac Gastrointestinal Verified 10/03/23 12:58 Upset pregabalin [From Lyrica] AdvReac Muscle Verified 10/03/23 12:58 Spasms Home Medications Medication Instructions Recorded Confirmed Type aripiprazole 5 mg tablet (Abilify) 5 mg PO DAILY 02/28/19 09/14/23 History duloxetine 60 mg capsule,delayed 60 mg PO DAILY 02/28/19 09/14/23 History release (Cymbalta) amlodipine 10 mg-valsartan 320 mg See Rx Instructions .Route 07/15/22 09/14/23 Rx tablet .COMPLEX #90 tabs sildenafil 50 mg tablet (Viagra) 50 mg PO DAILY PRN sexual activity 09/16/22 09/14/23 Rx #10 tabs rabeprazole 20 mg tablet,delayed 20 mg PO DAILY #90 tabs 10/27/22 09/14/23 Rx release (AcipHex) potassium chloride 10 mEq 30 meq PO DAILY #90 tabs 04/04/23 09/14/23 Rx tablet,extended release hydrocodone 10 mg-acetaminophen 1 tablet PO Q8H pain #1 tablet 05/23/23 09/14/23 Rx 300 mg tablet atorvastatin 10 mg tablet 10 mg PO DAILY #90 tabs 06/20/23 09/14/23 Rx metoprolol succinate 25 mg 12.5 mg PO DAILY #30 tabs 07/30/23 09/14/23 Rx tablet,extended release 24 hr hydroxychloroquine 200 mg tablet 200 mg PO BID 08/17/23 09/14/23 History hydrochlorothiazide 25 mg tablet 25 mg PO DAILY #90 tabs 08/28/23 09/14/23 Rx latanoprost 0.005 % eye drops 1 drp EACH EYE DAILY 09/14/23 09/14/23 History prednisone 10 mg tablet 10 mg PO BID #20 tabs 09/14/23 09/14/23 Rx Patient hx anesthesia problems: none Family hx anesthesia problems: none Results Review: All pre-operative results and documents have been reviewed as part of the pre-operative evaluation. [facility] Past Medical History Medical History Benign colon polyp Chronic obstructive pulmonary disease Essential hypertension Glaucoma Iron deficiency anemia Lichen planus Macular degeneration of both eyes Overweight Pars planitis of both eyes PTSD (post-traumatic stress disorder) Radiculopathy, lumbar region Right rotator cuff tear Wellness examination Surgical History Surgical History H/O carpal tunnel repair H/O excision of mass benign cyst excised from ear H/O eye surgery H/O vasectomy Trigger finger Family History Family History Father Family history of diabetes mellitus in first degree relative Sibling Family history of diabetes mellitus in first degree relative Other Cerebrovascular accident Diabetes mellitus Family history of arthritis Family history of cardiovascular disease Family history of lung disease Family history of malignant neoplasm Hypertension Social History Social History Social History: Smoking packs per day: 0.5 Smoking cigarettes per day: 10.0 Years smoked: 40 Smoking pack-years: 20.00 Smoking status: Former smoker Tobacco type: cigarettes Second hand tobacco smoke exposure: No Smoking end date: 03/13/23 Alcohol intake: former Alcohol use details: September 11, 2022 pt quit Substance use: never Substance use type: does not use Do You Feel Safe in your Home?: Yes Lack of Transportation: No Lack of Food: Never True Curr
--- NOTE | 2023-10-03 13:50 | SUR.OPER ---
EGD end at 1346. Colon started at 1350.
[2023-10-03 14:07] VITALS: BP 126/93; PULSE 85; RESP 10; O2SAT 98
[2023-10-03 14:17] VITALS: BP 111/67; PULSE 88; RESP 13; O2SAT 100
[2023-10-03 14:27] VITALS: BP 117/74; PULSE 93; RESP 21; O2SAT 100
== END 2023-10-03 14:43 | disposition home or self-care (01) ==
PROVIDERS: PCP Family Medicine; Referring Provider Physician Assistant Medical; Visit Provider Internal Medicine Gastroenterology
PROC: 0DJ08ZZ Inspection of Upper Intestinal Tract, Via Natural or Artificial Opening Endoscopic (ICD-10-PCS; CPT 43235; principal; 2023-10-03 14:30)
DX: K92.1 Melena (principal); K29.70 Gastritis, unspecified, without bleeding; K21.9 Gastro-esophageal reflux disease without esophagitis; D50.9 Iron deficiency anemia, unspecified; K57.30 Diverticulosis of large intestine without perforation or abscess without bleeding; K64.8 Other hemorrhoids; I10 Essential (primary) hypertension; H40.9 Unspecified glaucoma; Z87.891 Personal history of nicotine dependence
CPT/HCPCS: 43239; 45378; 88305; J2001; J2704; J7120

== ENCOUNTER 2023-11-15 14:07 | Outpatient (CLI) | payer MEDICARE, OTHER, SELFPAY ==
[2023-11-15 15:05] LABS: SARS-CoV-2 RNA PCR Negative (Negative)
== END 2023-11-15 14:08 | disposition home or self-care (01) ==
PROVIDERS: PCP Family Medicine; Visit Provider Physician Assistant Medical
DX: R50.9 Fever, unspecified (principal); R11.2 Nausea with vomiting, unspecified; Z20.822 Contact with and (suspected) exposure to COVID-19
CPT/HCPCS: 87635

== ENCOUNTER 2023-11-16 14:13 | Outpatient (CLI) | payer MEDICARE, OTHER, SELFPAY ==
--- NOTE | ~2023-11-16 | XR_ITS ---
Left Hand Technique: PA, oblique, and lateral views were obtained. Clinical History: Fourth digit PIP injury Findings: No acute fracture or dislocation is seen. Osseous alignment is anatomic. Joint spaces are p reserved. Soft tissues are unremarkable. Impression: Unremarkable left hand. Reviewed, dictated and finalized at location . Impression: Unremarkable left hand.
== END 2023-11-16 14:14 | disposition home or self-care (01) ==
LOC: ANHIMG 14:20
PROVIDERS: PCP Family Medicine; Visit Provider Physician Assistant Medical
DX: M25.542 Pain in joints of left hand (principal)
CPT/HCPCS: 73130

== ENCOUNTER 2023-12-12 15:08 | Outpatient (CLI) | payer MEDICARE, OTHER, SELFPAY ==
[2023-12-12 15:26] LABS: Basophils Percent Auto 0.5 % (0.2-1.2); Eosinophils Absolute Auto 0.1 K/mm3 (0-0.3); Eosinophils Percent Auto 1.3 % (0-4.4); Hematocrit 38.8 % (42.0-52.0); Hemoglobin 13.1 g/dL (14.0-18.0); Immature Granulocyte Absolute 0.03 K/mm3 (0.00-0.031); Immature Granulocyte Percent A 0.4 % (0-0.5); Lymphocytes Absolute Auto 1.52 K/mm3 (0.9-3.2); Lymphocytes Percent Auto 20.1 % (18.3-44.2); Mean Corpuscular HGB Conc 33.8 g/dl (32-36); Mean Corpuscular Hemoglobin 31.2 pg (26-34); Mean Corpuscular Volume 92.4 fl (80-100); Mean Platelet Volume 8.6 fl (7.4-10.4); Monocytes Absolute Auto 0.9 K/mm3 (0.1-0.6); Monocytes Percent Auto 12.3 % (2.6-8.5); Neutrophils Absolute Auto 4.9 K/mm3 (1.3-6.7); Neutrophils Percent Auto 65.4 % (45.5-73.1); Platelet Count Result 265 k/mm3 (150-375); Red Cell Distribution Width 13.5 % (11.5-14.5); White Blood Count 7.6 K/mm3 (4.5-10.0)
== END 2023-12-12 15:09 | disposition home or self-care (01) ==
LOC: ANHLAB 15:10
PROVIDERS: PCP Family Medicine; Visit Provider Family Medicine
DX: T14.8XXA Other injury of unspecified body region, initial encounter (principal)
CPT/HCPCS: 36415; 85025

== ENCOUNTER 2024-03-25 10:11 | Outpatient (CLI) | payer MEDICARE, OTHER, SELFPAY ==
[2024-03-25 10:47] LABS: Hematocrit 40.8 % (42.0-52.0); Hemoglobin 13.6 g/dL (14.0-18.0); Mean Corpuscular HGB Conc 33.3 g/dl (32-36); Mean Corpuscular Hemoglobin 31.1 pg (26-34); Mean Corpuscular Volume 93.2 fl (80-100); Mean Platelet Volume 9.2 fl (7.4-10.4); Platelet Count Result 295 k/mm3 (150-375); Red Blood Count 4.38 M/mm3 (4.6-6.20); Red Cell Distribution Width 13.9 % (11.5-14.5); White Blood Count 7.5 K/mm3 (4.5-10.0)
[2024-03-25 11:13] LABS: Alanine Aminotransferase 32 U/L (6-50); Albumin Level 4.5 g/dL (3.5-5.1); Alkaline Phosphatase 125 U/L (38-126); Anion Gap 1 mmol/L (4-12); Aspartate Amino Transferase 28 U/L (17-59); Bilirubin,Total 0.8 mg/dL (0.2-1.3); Blood Urea Nitrogen 13 mg/dL (9-20); Calcium 9.5 mg/dL (8.4-10.2); Carbon Dioxide 36 mmol/L (22-30); Chloride 94 mmol/L (98-107); Estimated Glomerular Filt Rate > 60; Glucose 114 mg/dL (65-110); Potassium 4.1 mmol/L (3.4-5.0); Sodium 131 mmol/L (137-145)
[2024-03-25 12:59] LABS: Hemoglobin A1C 6.2 % (<5.7)
[2024-03-25 13:16] LABS: Creatinine Urine 10.8 mg/dL
[2024-03-25 13:20] LABS: MALB Creatinine Ratio 66.7 mg/g (0-30); Microalbumin Urine Random 7.2 mg/L (0-16.7)
== END 2024-03-25 10:12 | disposition home or self-care (01) ==
PROVIDERS: PCP Family Medicine; Visit Provider Physician Assistant Medical
DX: E11.40 Type 2 diabetes mellitus with diabetic neuropathy, unspecified (principal); E78.2 Mixed hyperlipidemia; D64.9 Anemia, unspecified; I10 Essential (primary) hypertension
CPT/HCPCS: 36415; 80053; 82043; 83036; 85027

== ENCOUNTER 2024-04-02 07:56 | Outpatient (CLI) | payer MEDICARE, OTHER, SELFPAY ==
--- NOTE | ~2024-04-02 | XR_ITS ---
EXAMINATION: XR lumbar spine 2-3V DATE: 04/02/2024 08:16 INDICATION: Low back pain, unspecified. TECHNIQUE: 3 views of lumbar spine were obtained. COMPARISON: Lumbar spine radiographs 05/19/23 FINDINGS: There is 7 degrees levocurvature of lumbar spine. There is 3 mm anterolisthesis of L4 on L5 . Vertebral body heights are normal. There is mildly decreased disc height at L4-L5 and severely decr eased disc height at L5-S1. There is multilevel facet joint osteoarthritis, severe in lower lumbar sp ine. IMPRESSION: 1. Severe lower lumbar spondylosis, stable from 05/19/2023. Reviewed, dictated and finalized at location A. D [employer]
== END 2024-04-02 07:57 | disposition home or self-care (01) ==
PROVIDERS: PCP Family Medicine; Visit Provider Physician Assistant Medical
DX: M47.896 Other spondylosis, lumbar region (principal)
CPT/HCPCS: 72100

== ENCOUNTER 2024-04-12 13:34 | Emergency (ER) | payer MEDICARE, OTHER, SELFPAY ==
[2024-04-12 14:02] VITALS: BP 171/73; PULSE 108; RESP 20; TEMP 36.3; O2SAT 98
--- NOTE | 2024-04-12 14:05 | ED_ITS ---
HPI - Back Pain/Injury General Chief Complaint: Back Pain/Injury Stated Complaint: lower back pain >1 week Time Seen by Provider: 04/12/24 14:05 History of Present Illness HPI Narrative: 68-year-old male with a history of sciatica presents to the emergency department for flare of his sciatica for the past couple of weeks. States the pain is located in his lower back and radiates to his left hip describes it as a ?burning? pain. Patient denies injury or trauma. He sees pain management and is taking 40 mg of hydrocodone daily with muscle relaxers without improvement. He follow-up with his PCP regarding his acute on chronic pain and had repeat x- rays done a week ago that showed no acute changes. He was advised to follow-up with his pain management. States he contacted his pain management office and has an appointment next week, however the patient reported to the ED due to persistent pain. He denies injury trauma, saddle anesthesia, bowel or bladder incontinence or urinary retention, recent surgeries or procedures to his back, IV drug use, fever. States in the past steroids have worked tremendously for him. He denies abdominal pain, dysuria hematuria. Related Data Home Medications ?Medication ?Instructions ?Recorded ?Confirmed ?Last Taken ?Type aripiprazole 5 mg tablet (Abilify) 5 mg PO DAILY 02/28/19 04/01/24 10/03/23 History duloxetine 60 mg capsule,delayed 60 mg PO DAILY 02/28/19 04/01/24 10/03/23 History release (Cymbalta) hydroxychloroquine 200 mg tablet 200 mg PO BID 08/17/23 04/01/24 10/03/23 History latanoprost 0.005 % eye drops 1 drp EACH EYE DAILY 09/14/23 04/01/24 10/03/23 History cyclobenzaprine 10 mg tablet mg PO BID 10/04/23 04/01/24 Unknown History Allergies Allergy/AdvReac Type Severity Reaction Status Date / Time pregabalin (From Lyrica) AdvReac Muscle Verified 04/01/24 16:22 Spasms Review of Systems Review of Systems: All systems reviewed & are unremarkable except as noted in HPI and below PMFSH Past Medical History Medical History Iron deficiency anemia Glaucoma Pars planitis of both eyes Lichen planus Overweight Wellness examination Chronic obstructive pulmonary disease Essential hypertension Benign colon polyp PTSD (post-traumatic stress disorder) Right rotator cuff tear Radiculopathy, lumbar region Macular degeneration of both eyes Surgical History Surgical History H/O excision of mass benign cyst excised from ear H/O vasectomy H/O carpal tunnel repair Trigger finger H/O eye surgery Family History Family History Father Family history of diabetes mellitus in first degree relative Sibling Family history of diabetes mellitus in first degree relative Other Cerebrovascular accident Diabetes mellitus Family history of arthritis Family history of cardiovascular disease Family history of lung disease Family history of malignant neoplasm Hypertension Social History Social History Social History: Smoking packs per day: 0.5 Smoking cigarettes per day: 10.0 Years smoked: 40 Smoking pack-years: 20.00 Smoking status: Former smoker Tobacco type: cigarettes Second hand tobacco smoke exposure: No Smoking end date: 03/13/23 Alcohol intake: former Alcohol use details: September 11, 2022 pt quit Substance use: never Substance use type: does not use Do You Feel Safe in your Home?: Yes Lack of Transportation: No Lack of Food: Never True Current Housing: I Have Housing Concerned About Future Housing: No Difficulty Paying Gas/Electric Bills: No Difficulty Paying for Meds: No Currently Unemployed: YES Education: Trade/Vocational Certificate Difficulty w/ Childcare or Family Care: No Living arrangements: other Additional living arrangements comments: with sp Occupation/Education: retired Gender identity (if verbalized by the patient): Male Sexual Orientation (if Verbalized by the Patient): Straight or Heterosexual Exam Narrative: GENERAL: Well-appearing, well-nourished, and in no acute distress. HEAD: Normocephalic, atraumatic. EYES: PERRLA and EOMI. ENT: Nares clear, no rhinorrhea or epistaxis. Mucous membranes moist. NECK: Supple. BACK: Tenderness over the lumbar spine with no crepitus, step-offs or deformities, no overlying skin changes, erythema or warmth. CHEST: Clear to auscultation. No respiratory distress. HEART: Regular rate and rhythm. No murmur heard. Normal peripheral pulses. ABDOMEN: Soft, nontender, nondistended, normal active bowel sounds. EXTREMITIES: Normal range of motion. No edema. Strength 5/5 BLE, sensation int act throughout, no saddle anesthesia. SKIN: Warm, dry, no rash. NEURO: No focal deficits. Alert and oriented x3 Course Vital Signs Vital signs: Vital Signs Temperature 97.4 F L 04/12/24 14:02 Pulse Rate 108 H 04/12/24 14:02 Respiratory Rate 20 04/12/24 14:02 Blood Pressure 171/73 H 04/12/24 14:02 Pulse Oximetry 98 04/12/24 14:02 Temperature 97.4 F L 04/12/24 14:02 Pulse Rate 108 H 04/12/24 14:02 Respiratory Rate 20 04/12/24 14:02 Blood Pressure 171/73 H 04/12/24 14:02 Pulse Oximetry 98 04/12/24 14:02 MDM - Back Pain/Injury MDM Narrative Medical decision making narrative: 68-year-old male with history of sciatica and chronic pain presents to the emergency department for acute on chronic low back pain. Triage vitals with mild tachycardia 108 and hypertension, otherwise unremarkable. Patient is afebrile and nontoxic. Resting comfortably in exam chair. On exam he has some tenderness to the lumbar spine but no overlying skin changes, crepitus, step- offs or deformities. He is neurovascularly intact without symptoms of cauda equina or cord compression. He is ambulatory with steady gait. No evidence of infection. No abdominal pain or symptoms concerning for dissection or other etiology for symptoms. Presentation is most consistent with acute on chronic sciatic flare. Patient is currently taking 40 mg of hydrocodone as well as muscle relaxers daily without improvement. States steroids have helped him tremendously in the past. Will provide Medrol Dosepak and lidocaine patches. Encouraged follow-up with his pain management doctor discussed return precautions. He is agreeable with the plan verbalized understanding. Discharged in stable condition. Discharge Plan Discharge Clinical Impression: Lumbago Qualifiers: Chronicity: acute Back pain laterality: left Sciatica presence: with sciatica Sciatica laterality: sciatica of left side Qualified Code(s): M54.42 - Lumbago with sciatica, left side Patient Disposition: Home, Self-Care Condition: Stable Instructions: Antibiotic Form, Sciatica (ED), Back Pain (ED) Additional Instructions: Take the steroids as directed. Continue taking the pain medicine that was prescribed by your pain management doctor. Follow-up with pain management. Return to the emergency department if you develop a fever, weakness of your legs, you lose control of her bowel or bladder, have numbness in her groin or other concerning symptoms. Patient Language: Spanish Prescriptions: New methylprednisolone [Medrol ([place])] 4 mg tablets,dose pack See Rx Instructions PO .COMPLEX Qty: 21 0RF Rx Instructions: orally per package directions lidocaine 5 % adhesive patch,medicated 1 patch topical DAILY Qty: 15 0RF Rx Instructions: leave on most painful area for up to 12 hrs. do not use more than 1 patch in a 24-hour period. No Action amlodipine 10 mg tablet 10 mg PO DAILY Qty: 90 1RF valsartan 320 mg tablet 320 mg PO DAILY Qty: 90 1RF duloxetine [Cymbalta] 60 mg capsule,delayed release(DR/EC) 60 mg PO DAILY aripiprazole [Abilify] 5 mg tablet 5 mg PO DAILY cyclobenzaprine 10 mg tablet PO BID hydrocodone-acetaminophen 10-300 mg tablet 1 tablet PO Q8H Qty: 1 0RF hydroxychloroquine 200 mg tablet 200 mg PO BID latanoprost 0.005 % drops 1 drp EACH EYE DAILY sildenafil [Viagra] 50 mg tablet 50 mg PO DAILY PRN (Reason: sexual activity) Qty: 10 0RF Rx Instructions: administer 30 minutes to 4 hours before activity atorvastatin 10 mg tablet 10 mg PO DAILY Qty: 90 3RF metoprolol succinate 25 mg tablet extended release 24 hr 12.5 mg PO DAILY Qty: 30 2RF rabeprazole [AcipHex] 20 mg tablet,delayed release (DR/EC) 20 mg PO DAILY Qty: 90 3RF hydrochlorothiazide 25 mg tablet 25 mg PO DAILY Qty: 90 1RF Follow-up/Referrals: Paul Man MD [Primary Care Provider] -
== END 2024-04-12 14:19 | disposition home or self-care (01) ==
LOC: ANHED 14:11
PROVIDERS: Emergency Provider Physician Assistant; PCP Family Medicine
DX: M54.42 Lumbago with sciatica, left side (principal); D64.9 Anemia, unspecified; J44.9 Chronic obstructive pulmonary disease, unspecified; I10 Essential (primary) hypertension; F43.10 Post-traumatic stress disorder, unspecified
CPT/HCPCS: 99283

== ENCOUNTER 2024-05-08 18:29 | Emergency (ER) | payer MEDICARE, OTHER, SELFPAY ==
[2024-05-08 18:43] VITALS: BP 150/63; PULSE 104; RESP 16; TEMP 37; O2SAT 98
--- NOTE | 2024-05-08 19:47 | ED.FALL ---
HPI - Fall General Chief Complaint: Fall Stated Complaint: right leg,ankle,arm,shoulder pain Time Seen by Provider: 05/08/24 19:37 Source: patient and RN notes reviewed Mode of arrival: ambulatory Limitations: no limitations History of Present Illness HPI Narrative: Patient presents today complaining of bruising to the right lateral ankle and calf after patient fell out of bed last night around 3:00 a.m. after having a dream, waking up to go to the bathroom. States he struck the back of his head on his nightstand, but denies any loss of consciousness, bleeding. He came in to [facility] today wondering if he can use his home lidocaine patches on his leg where the bruising is. He already has home pain medication. Denies any other questions or needs. Related Data Home Medications ?Medication ?Instructions ?Recorded ?Confirmed ?Last Taken ?Type aripiprazole 5 mg tablet (Abilify) 5 mg PO DAILY 02/28/19 05/08/24 10/03/23 History duloxetine 60 mg capsule,delayed 60 mg PO DAILY 02/28/19 05/08/24 10/03/23 History release (Cymbalta) hydroxychloroquine 200 mg tablet 200 mg PO BID 08/17/23 05/08/24 10/03/23 History latanoprost 0.005 % eye drops 1 drp EACH EYE DAILY 09/14/23 05/08/24 10/03/23 History cyclobenzaprine 10 mg tablet 10 mg PO BID 10/04/23 05/08/24 Unknown History Allergies Allergy/AdvReac Type Severity Reaction Status Date / Time pregabalin (From Lyrica) AdvReac Muscle Verified 05/08/24 18:53 Spasms Review of Systems Review of Systems: CONSTITUTIONAL: Denies body aches, fever, chills, or sweats. EYES: Denies visual changes, redness, or discharge. ENT: Denies rhinorrhea, congestion, sore throat, or otalgia. CARDIOVASCULAR: Denies chest pain, palpitations, or edema. RESPIRATORY: Denies cough or dyspnea. GASTROINTESTINAL: Denies abdominal pain, nausea, vomiting, or diarrhea. GENITOURINARY: Denies dysuria or hematuria. SKIN:+ right leg bruising MUSCULOSKELETAL: Denies back pain, joint pain, or myalgia. NEUROLOGIC: Denies headache, numbness, tingling, or weakness. PSYCH: Denies depression or anxiety. [facility] Past Medical History Medical History Iron deficiency anemia Glaucoma Pars planitis of both eyes Lichen planus Overweight Wellness examination Chronic obstructive pulmonary disease Essential hypertension Benign colon polyp PTSD (post-traumatic stress disorder) Right rotator cuff tear Radiculopathy, lumbar region Macular degeneration of both eyes Surgical History Surgical History H/O excision of mass benign cyst excised from ear H/O vasectomy H/O carpal tunnel repair Trigger finger H/O eye surgery Family History Family History Father Family history of diabetes mellitus in first degree relative Sibling Family history of diabetes mellitus in first degree relative Other Cerebrovascular accident Diabetes mellitus Family history of arthritis Family history of cardiovascular disease Family history of lung disease Family history of malignant neoplasm Hypertension Social History Social History Social History: Smoking packs per day: 0.5 Smoking cigarettes per day: 10.0 Years smoked: 40 Smoking pack-years: 20.00 Smoking status: Former smoker Tobacco type: cigarettes Second hand tobacco smoke exposure: No Smoking end date: 03/13/23 Alcohol intake: former Alcohol use details: September 11, 2022 pt quit Substance use: never Substance use type: does not use Do You Feel Safe in your Home?: Yes Lack of Transportation: No Lack of Food: Never True Current Housing: I Have Housing Concerned About Future Housing: No Difficulty Paying Gas/Electric Bills: No Difficulty Paying for Meds: No Currently Unemployed: YES Education: Trade/Vocational Certificate Difficulty w/ Childcare or Family Care: No Living arrangements: other Additional living arrangements comments: with sp Occupation/Education: retired Gender identity (if verbalized by the patient): Male Sexual Orientation (if Verbalized by the Patient): Straight or Heterosexual Comments At time of signature, I have reviewed and agree with nursing past medical, surgical, social and family history unless otherwise noted. Please see nursing chart for further information. There is no relevant family history pertinent to the presenting complaint Exam Narrative: GENERAL: Well-appearing, well-nourished, and in no acute distress. HEAD: Normocephalic, atraumatic. No edema or wounds to the right posterior occiput. EYES: EOMI. No redness or drainage. Conjunctivae normal. ENT: Mucous membranes pink and moist. NECK: Normal AROM. CHEST: No respiratory distress. EXTREMITIES: Scattered mild bruising to the right lateral ankle and calf without edema. Mildly tender to palpation. Full range of motion of the ankle and knee without discomfort. SKIN: Warm, dry, no rash. Capillary refill normal. Normal skin turgor. NEURO: No focal deficits. Alert and oriented x3. Gait steady. PSYCH: Normal affect. No signs of depression or anxiety. Course Course Level of Care: [facility] Visit Vital Signs Vital signs: Vital Signs Temperature 98.6 F 05/08/24 18:43 Pulse Rate 104 H 05/08/24 18:43 Respiratory Rate 16 05/08/24 18:43 Blood Pressure 150/63 H 05/08/24 18:43 Pulse Oximetry 98 05/08/24 18:43 Oxygen Delivery Room Air 05/08/24 18:43 Temperature 98.6 F 05/08/24 18:43 Pulse Rate 104 H 05/08/24 18:43 Respiratory Rate 16 05/08/24 18:43 Blood Pressure 150/63 H 05/08/24 18:43 Pulse Oximetry 98 05/08/24 18:43 Oxygen Delivery Room Air 05/08/24 18:43 Reviewed MDM - Fall MDM Narrative Medical decision making narrative: Discussed with patient that he can use the lidocaine patches as directed on the box at home. Confirms that he could use the hot tub at his local gym and this could help with his muscle aches. Patient happy caution. Anticipatory guidance given. Differential Diagnosis Differential diagnosis: Likely other (Contusion, abrasion, fall) Critical Care Time Critical Care Time Critical Care Time: No Discharge Plan Discharge Clinical Impression: Contusion of leg, right Qualifiers: Encounter type: initial encounter Qualified Code(s): S80.11XA - Contusion of right lower leg, initial encounter Accidental fall from bed Qualifiers: Encounter type: initial encounter Qualified Code(s): W06.XXXA - Fall from bed, initial encounter Patient Disposition: Home, Self-Care Condition: Stable Instructions: Contusion in Adults (ED) Additional Instructions: Please use your home lidocaine patches as directed on the box. Take Tylenol if needed for pain. Follow-up with your PCP with any additional concerns. Your blood pressure was elevated above 120/80 today at Urgent Care. This puts you above the threshold for follow up. Please schedule a followup visit with your personal physician as soon as possible, for further evaluation and treatment. Even blood pressure exceeding 120/80 may indicate pre-hypertension. Patient Language: Armenian Prescriptions: No Action amlodipine 10 mg tablet 10 mg PO DAILY Qty: 90 1RF valsartan 320 mg tablet 320 mg PO DAILY Qty: 90 1RF duloxetine [Cymbalta] 60 mg capsule,delayed release(DR/EC) 60 mg PO DAILY aripiprazole [Abilify] 5 mg tablet 5 mg PO DAILY cyclobenzaprine 10 mg tablet 10 mg PO BID hydrocodone-acetaminophen 10-300 mg tablet 1 tablet PO Q8H Qty: 1 0RF hydroxychloroquine 200 mg tablet 200 mg PO BID metoprolol succinate 25 mg tablet extended release 24 hr 25 mg PO DAILY Qty: 90 1RF latanoprost 0.005 % drops 1 drp EACH EYE DAILY lidocaine 5 % adhesive patch,medicated 1 patch topical DAILY Qty: 15 0RF Rx Instructions: leave on most painful area for up to 12 hrs. do not use more than 1 patch in a 24-hour period. sildenafil [Viagra] 50 mg tablet 50 mg PO DAILY PRN (Reason: sexual activity) Qty: 10 0RF Rx Instructions: administer 30 minutes to 4 hours before activity atorvastatin 10 mg tablet 10 mg PO DAILY Qty: 90 3RF rabeprazole [AcipHex] 20 mg tablet,delayed release (DR/EC) 20 mg PO DAILY Qty: 90 3RF hydrochlorothiazide 25 mg tablet 25 mg PO DAILY Qty: 90 1RF Follow-up/Referrals: Sonia Man [facility] [Primary Care Provider] - Time of Disposition: 19:52
== END 2024-05-08 19:57 | disposition home or self-care (01) ==
PROVIDERS: Emergency Provider Nurse Practitioner
DX: S80.11XA Contusion of right lower leg, initial encounter (principal); W06.XXXA Fall from bed, initial encounter; Z87.891 Personal history of nicotine dependence; H40.9 Unspecified glaucoma; J44.9 Chronic obstructive pulmonary disease, unspecified; I10 Essential (primary) hypertension; H35.30 Unspecified macular degeneration; L43.9 Lichen planus, unspecified; Z98.52 Vasectomy status
CPT/HCPCS: 99212; G0463

== ENCOUNTER 2024-06-30 20:03 | Emergency (ER) | payer MEDICARE, OTHER, SELFPAY ==
[2024-06-30 20:04] VITALS: BP 159/79; PULSE 105; RESP 20; TEMP 36.3; O2SAT 99
--- OUTSIDE RECORDS SUMMARY | 2024-06-30 20:05 | XMS_ITS | Encounter Summary ---
Author Organization 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, head, and neck; Other specified erythematous conditions; Other disturbances of skin sensation Social History Tobacco Use Types Packs/Day Years Used Date Smoking Tobacco: Never Assessed Cigarettes Alcohol Use Standard Drinks/Week Comments Not Asked 0 (1 standard drink = 0.6 oz pur e alcohol) Sex and Gender Information Value Date Recorded Sex Assigned at Not on file Gender Identity Not on file Sexual Orientation Not on file documented as of this encounter Plan of Treatment Not on file documented as of this encounter Procedures Procedure Name Priority Date/Time Associated Diagnosis Comments DERMATOPATHOLOGY Routine 08/21/2023 12:0 0 AM CDT Neoplasm of uncertain behavior of skin 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, head, and neck Other specified erythematous conditions Other disturbances of skin sensation documented in this encounter Results * DERMATOPATHOLOGY (08/21/2023 12:00 AM CDT) Case Report Dermatopathology Report Case: [id number] Authorizing Provider: Matthias Peoples MD Collected: 08/21/2023 12:00 AM Ordering Location: [facility] - Received: 08/23/2023 01:49 PM DermPath Lab Pathologist: Silvia Mcdonnell MD Specimens: A) - Skin, right inferior lateral malar cheek B) - Skin, right superior lateral buccal cheek C) - Skin, right lower cutaneous lip D) - Skin, mid posterior neck 11:41 AM CDT DERMATOPATHOLOGY LABORATORY Final Diagnosis Specimen A. SKIN, right inferior lateral malar cheek: BENIGN VERRUCOUS KERATOSIS (L82.1) Specimen B. SKIN, right superior lateral buccal cheek: BENIGN VERRUCOUS KERATOSIS, INFLAMED (L82.1) (see microscopic description) Specimen C. SKIN, right lower cutaneous lip: BENIGN VERRUCOUS KERATOSIS (L82.1) (see microscopic description) Specimen D. SKIN, mid posterior neck: NEUROFIBROMA (D36.10) 11:41 AM CDT DERMATOPATHOLOGY LABORATORY Clinical History A-C: Squamous Cell Carcinoma vs. Verruca Vulgaris D: Neurofibroma 11:41 AM CDT DERMATOPATHOLOGY LABORATORY Gross Description Specimen A: Received is one formalin filled container labeled with the patient's name and designated right inferior lateral malar cheek. The specimen consists of a shave biopsy measuring 3x3x2 mm. Jar 0. Specimen B: Received is one formalin filled container labeled with the patient's name and designated right superior lateral buccal cheek. The specimen consists of a shave biopsy measuring 3x1x1 mm. Jar 0. Specimen C: Received is one formalin filled container labeled with the patient's name and designated right lower cutaneous lip. The specimen consists of a shave biopsy measuring 2x1x1 mm. Jar 0. Specimen D: Received is one formalin filled container labeled with the patients name and designated mid posterior neck. The specimen consists of a shave removal measuring 3x3x1 mm. Jar 0. 11:41 AM [facility] DERMATOPATHOLOGY LABORATORY Microscopic Description Specimen A. SKIN, right inferior lateral malar cheek: Sections show hyperkeratosis, papillomatosis, hypergranulosis, and acanthosis. These histological findings can be seen in a verruca vulgaris or a seborrheic keratosis. Specimen B. SKIN, right superior lateral buccal cheek: Sections show hyperkeratosis, papillomatosis, hypergranulosis, and acanthosis. Inflammatory cells are present within the dermis. These histological findings can be seen in a verruca vulgaris or a seborrheic keratosis. Additional deeper sections were obtained and reviewed. Specimen C. SKIN, right lower cutaneous lip: Sections show hyperkeratosis, papillomatosis, hypergranulosis, and acanthosis. These histological findings can be seen in a verruca vulgaris or a seborrheic keratosis. Additional deeper sections were obtained and reviewed. Specimen D. SKIN, mid posterior neck: Sections show a proliferation of spindled and S-shaped cells within the dermis. The stromal collagen is delicate and pale. 11:41 AM [facility] DERMATOPATHOLOGY LABORATORY Disclaimer An external and internal positive and negative controls are appropriate for the histochemical, immunohistochemical and immunofluorescence stain(s) in this case (if any), except where stated explicitly. The performance characteristics of the stain(s) cited in this report were developed and its performance characteristic determined by the Dermatopathology Laboratory at [facility], directed by Dr. Arturo Hatfield. These tests need not be, and therefore are not, approved by the [place] Food and Drug Administration. The tests are used for clinical purposes. Billing Codes Specimen Charges Stain Charges 04703 28139 [id number] 1 1 1 1 4 11:41 AM T DERMATOPATHOLOGY LABORATORY Embedded Images 11:41 AM [facility] DERMATOPATHOLOGY LABORATORY Pathology/Cytology TISSUE SPECIMEN FROM SKIN / Unknown 08/21/2023 08/23/2023 1:49 PM CDT Miscellaneous samples (specimen) TISSUE SPECIMEN FROM SKIN / Unknown 08/21/2023 08/23/2023 1:49 PM CDT Miscellaneous samples (specimen) TISSUE SPECIMEN FROM SKIN / Unknown 08/21/2023 08/23/2023 1:49 PM CDT Miscellaneous samples (specimen) TISSUE SPECIMEN FROM SKIN / Unknown 08/21/2023 08/23/2023 1:49 PM CDT Matthias Peoples MD LAB - PATHOLOGY/CYTO LOGY ORDERABLES DERMATOPATHOLOGY LABORATORY [facility] - Department of Dermatology [facility] Medicine [address] [place] [address], [address] [phone] documented in this encounter Visit Diagnoses Diagnosis Neoplasm of uncertain behavior of skin 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
--- OUTSIDE RECORDS SUMMARY | 2024-06-30 20:05 | XMS_ITS | Continuity of Care Document ---
Author Organization [facility] Address [address] [place] [address] [address] [place] [address] Phone Care Team Providers Care Radio Rigger Name Role Phone Michelle Catalan Unavailable Unavailable Advance Directives Directive Yes / No Effective Date File Name No Information Encounters Encounter Description Practice Location Reason(s) For Visit Diagnoses Date Provider Providers Copied on Encounter [facility], [address] [place] [address] [address], [place], [place], [id number], [place] tel:[phone] [facility] No Information [address] , [address], [place], [address], [place]. tel:[phone] Family History Family Member Type Diagnosis Age At Onset No Information Payers Payer name Insurance type Covered democrat ID Authoriza tion(s) No Information Social History Type Description Quantity Date Captured Comments Sex Male Smoking Status No Information Chief Complaint And Reason For Visit No Information Reason For Referral Reason For Referral No Information History Of Present Illness Encounter Date Complaint History Of Prese nt Illness No Information Functional Status Date Functional Assessmen t No Information Instructions Date Instruction Additional Infor mation No Information Assessments Type Assessment Date No Information Patient Care Teams Name Effective Dates (start - stop) Status Members No Information
--- OUTSIDE RECORDS SUMMARY | 2024-06-30 20:05 | XMS_ITS | Referral Summary ---
Author Organization [facility] [address] [facility] [address] [facility] [address] [place] [address] Care Team Providers Care Plane Captain Name Role Phone Paul Man MD Primary Care Provider Allergies Active Allergy Reactions Criticality Noted Date Comments Ibuprofen Nausea only Low 05/12/2017 Social History Tobacco Use Types Packs/Day Years Used Date Smoking Tobacco: Never Assessed Personal Safety Answer Date Recorded Getting School Help Needed Not on file 06/23 Sex and Gender Information Value Date Recorded Sex Assigned at Not on file Legal Sex Male 1:48 AM HAND BRAILLE 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 Gender Identity Not on file Sexual Orientation Not on file Last Filed Vital Signs Vital Sign Reading Time Taken Comments Blood Pressure - - Pulse - - Temperature - - Respiratory Rate - - Oxygen Saturation - - Inhaled Oxygen Concentration - - Weight 92.5 kg (204 lb) 05/12/2017 8:04 AM HAND BRAILLE TRANSCRIBER Height 175.3 cm (5' 9 ) 05/12/2017 8:04 AM HAND BRAILLE TRANSCRIBER Body Mass Index 30.13 05/12/2017 8:04 AM HAND BRAILLE TRANSCRIBER Plan of Treatment Not on file Insurance [facility] Care Teams Plane Captain Relationship Specialty Start Date End Date Paul Man MD [address] [facility] [address] [place] [address] PCP - General Family Medicine 04/28/17
--- OUTSIDE RECORDS SUMMARY | 2024-06-30 20:05 | XMS_ITS | Clinical Summary ---
Author Organization [facility] Address [address] [place] [address] Care Team Providers Care Manager Supply Name Role Phone Paul Man MD Primary Care Provider Source Comments [facility],non-owned Affiliates and Associated Physician Practices is amultiple site organization consisting of ambulatory clinics and hospital sitesin [place], [place], [place] and [place]. This disclosure is being madepursuant to the Care Everywhere program and may not contain all information available regarding this patient. 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 (FLUBLOCK QUADRIVALENT; 18Y+) (RIV4) 01/06/2018 Social History Tobacco Use Types Packs/Day Years Used Date Smoking Tobacco: Never Assessed Cigarettes Alcohol Use Standard Drinks/Week Comments Not Asked 0 (1 standard drink = 0.6 oz pur e alcohol) Sex and Gender Information Value Date Recorded Sex Assigned at Not on file Gender Identity Not on file Sexual Orientation Not on file Plan of Treatment Health Maintenance Due Date Last Done Comments COLOGUARD (AGES 45-75) - COL ON CA SCREENING 1955 COLON MONITORING 1955 COLONOSCOPY - COLON CA SCREENING 1955 CT COLONOGRAPHY - COLON CA SCREENING 1955 Colorectal Cancer Screening 1955 FIT - COLON CA SCREENING 1955 FLEX SIG - COLON CA SCREENING 1955 LIPID TESTING 1955 MEDICARE AWV 12 MONTHS 1955 HEPATITIS C SCREENING 11/29/1973 DTAP/TDAP/TD VACCINES (1 - Tdap) 12/03/1974 PNEUMOCOCCAL VACCINE 50+ (1 of 1 - PCV) 12/03/2005 ZOSTER VACCINE (1 of 2) 12/03/2005 COVID-19 VACCINE (1 - 2023-2 5 season) 2023 INFLUENZA VACCINE (#1) 2023 01/06/2018 DEPRESSION SCREENING 04/10/2024 Respiratory Syncytial Virus (RSV) Vaccine Pt: or over 60 yrs (1 - 1-dose 75+ series) 12/03/2030 HEPATITIS B VACCINE Aged Out No longe r eligible based on patient's age to complete this topic HIB VACCINE Aged Out No longer eligi ble based on patient's age to complete this topic HPV VACCINE Aged Out No longer eligi ble based on patient's age to complete this topic MENINGOCOCCAL (Group B) VACC INE SHARED DECISION-MAKING Aged Out No longer eligibl e based on patient's age to complete this topic MENINGOCOCCAL GROUPS A/C/Y/W VACCINE Aged Out No longer eligible b ased on patient's age to complete this topic Care Teams Manager Supply Relationship Specialty Start Date End Date Paul Man MD [address] [place] [address] PCP - General 06/24/10
--- OUTSIDE RECORDS SUMMARY | 2024-06-30 20:05 | XMS_ITS | Clinical Summary ---
Author Organization [facility] [address] [facility] [address] [facility] [address] [place] [address] Care Team Providers Care Support Group Manager Name Role Phone Paul Man MD Primary [...] on file Legal Sex Male 1:48 AM RESEARCH CLERK Gender Identity Not on file Sexual Orientation Not on file Last Filed Vital Signs Vital Sign Reading Time Taken Comments Blood Pressure - - Pulse - - Temperature - - Respiratory Rate - - Oxygen Saturation - - Inhaled Oxygen Concentration - - Weight 92.5 kg (204 lb) 05/12/2017 8:04 AM RESEARCH CLERK Height 175.3 cm (5' 9 ) 05/12/2017 8:04 AM RESEARCH CLERK Body Mass Index 30.13 05/12/2017 8:04 AM RESEARCH CLERK Plan of Treatment Not on file Insurance [facility] CLAIM[facility] Member Subscriber Plan / Payer (Ef fective 2017-Present) Name:Mathieu Mcgarry Katerina Relation to Subscriber:Self Name:Mathieu Mcgarry Payer ID:[id number] (NAIC) Group ID:Not on file Type: Address: [address] [address] [facility] CLAIM[facility] Member Subscriber Plan / Payer (Ef fective 2017-Present) Name:Mathieu Mcgarry Katerina Relation to Subscriber:Self Name:Mathieu Mcgarry Katerina Payer ID:[id number] (NAIC) Group ID:Not on file Type: Address: [address] [address] Care Teams Support Group Manager Relationship Specialty Start Date End Date Paul Man MD [address] [facility] [address] [place] [address] PCP - General Family Medicine 04/28/17
--- OUTSIDE RECORDS SUMMARY | 2024-06-30 20:05 | XMS_ITS | CONTINUITY OF CARE DOCUMENT ---
Author Name stacy yarelybernardino Address Unknown Organization [facility] Address [address] [facility] [address] [place] [address] Phone [phone] Care Team Providers Care Neurology Hospitalist Name Role Phone Bravo Benito MD Unavailable PROBLEMS Condition Status Date Provider Notes ANGINA PECTORIS active Janessa Stahlschmidt TOBACCO ABUSE active Janessa Stahlschmidt HYPERCHOLESTEROLEMIA active Janessa Stasandorsch midt HTN ESSENTIAL active Janessa Stahlschmidt DIABETES MELLITUS active Janessa Stahlschmid t CHEST PAIN-TYPE TO BE DETERMINED active Ang rand Stahlschmidt ALLERGIES No Known Drug Allergies HISTORY OF MEDICATION USE Medication Status Instructions Dates Provider Indications Com ments VICOPROFEN 7.5-200 MG ORAL TABLET active Janessa Stahlschmidt LYRICA CAPSULE active Twice daily Janessa Stahlschmidt PROZAC 40 MG ORAL CAPSULE active ONE TAB. DAILY Janessa Stahlschmidt ACIPHEX TABLET DELAYED RELEASE active Janessa Stahlschmidt EXFORGE 15 MG TABS (AMLODIPINE BESYLATE-VALSARTAN ) active ONE TAB. DAILY Janessa Stahlschmidt SIMVASTATIN 60 MG TABS (SIMVASTATIN) active ONE TAB. DAILY Janessa Stahlschmidt GLYBURIDE 5 MG ORAL TABLET active ONE TAB. DAILY Janessa Stahlschmidt INSURANCE PROVIDERS Payer name Policy type / Coverage type [place] red libertarian ID [id number] MATIAS [id number]
--- OUTSIDE RECORDS SUMMARY | 2024-06-30 20:05 | XMS_ITS | Clinical Summary ---
Author Organization [facility] Address [address] [place] [address] Care Team Providers Care Methods Analyst Data Processing Name Role Phone Unavailable Primary Care Provider Unavailabl e Social History Tobacco Use Types Packs/Day Years Used Date Smoking Tobacco: Never Assessed Sex and Gender Information Value Date Recorded Sex Assigned at Not on file Legal Sex Male 7:35 PM CDT Gender Identity Not on file Sexual Orientation Not on file Plan of Treatment Health Maintenance Due Date Last Done Comments Colorectal Cancer Screening Colonoscopy (10 Years) 1955 Hepatitis C 12/03/1973 DTaP, Tdap and Td Vaccines ( 1 - Tdap) 12/03/1974 Zoster Vaccines (1 of 2) 12/03/2005 Pneumococcal Vaccine: 65+ Ye ars (1 of 1 - PCV) 12/03/2020 COVID-19 Vaccine ( - 2023-2 5 season) 2023 Influenza Adult (#1) 2024 RSV Immunization or 60+ Years (1 - 1-dose 75+ series) 12/03/2030 Meningococcal B Vaccine Aged Out No l onger eligible based on patient's age to complete this topic Meningococcal Vaccine Aged Out No jaylene jose eligible based on patient's age to complete this topic RSV Immunizations Under 20 Months Aged Out No longer eligible based on patient's age to complete this topic
[2024-06-30 22:04] VITALS: BP 155/87; PULSE 99; RESP 18; O2SAT 100
--- NOTE | 2024-06-30 22:44 | ED_ITS ---
HPI - Wound/Laceration General Chief Complaint: Wound/Laceration Stated Complaint: right great toe infection Time Seen by Provider: 06/30/24 22:35 Source: patient Mode of arrival: ambulatory Limitations: no limitations History of Present Illness HPI narrative: Patient presents with concern for a right great toe infection. He had this toenail removed by broke beater Jorge approximately 2 weeks ago. His dog who we ighs approximately 125 lbs stepped on the area today and then licked it. He tried to clean it and pat it dry and cleanse it with Betadine but by tonight there was a yellow oozing area. He has a history of DM so was concerned/cautious. Related Data Home Medications ?Medication ?Instructions ?Recorded ?Confirmed ?Last Taken ?Type aripiprazole 5 mg tablet (Abilify) 5 mg PO DAILY 02/28/19 06/14/24 10/03/23 History duloxetine 60 mg capsule,delayed 60 mg PO DAILY 02/28/19 06/14/24 10/03/23 History release (Cymbalta) hydroxychloroquine 200 mg tablet 200 mg PO BID 08/17/23 06/14/24 10/03/23 History latanoprost 0.005 % eye drops 1 drp EACH EYE DAILY 09/14/23 06/14/24 10/03/23 History cyclobenzaprine 10 mg tablet 10 mg PO BID 10/04/23 06/14/24 Unknown History Allergies Allergy/AdvReac Type Severity Reaction Status Date / Time pregabalin (From Lyrica) AdvReac Muscle Verified 06/30/24 20:12 Spasms PMFSH Past Medical History Medical History (Updated 07/01/24 @ 21:35 by Chata Claire MD) Nontraumatic avulsion of toenail performed by broke beater Dr Patel June 2024 Diabetes mellitus Iron deficiency anemia Glaucoma Pars planitis of both eyes Lichen planus Overweight Wellness examination Chronic obstructive pulmonary disease Essential hypertension Benign colon polyp PTSD (post-traumatic stress disorder) Right rotator cuff tear Radiculopathy, lumbar region Macular degeneration of both eyes Surgical History Surgical History H/O excision of mass benign cyst excised from ear H/O vasectomy H/O carpal tunnel repair Trigger finger H/O eye surgery Family History Family History Father Family history of diabetes mellitus in first degree relative Sibling Family history of diabetes mellitus in first degree relative Other Cerebrovascular accident Diabetes mellitus Family history of arthritis Family history of cardiovascular disease Family history of lung disease Family history of malignant neoplasm Hypertension Social History Social History Social History: Has a dog (approximately 125lbs) Smoking packs per day: 0.5 Smoking cigarettes per day: 10.0 Years smoked: 40 Smoking pack-years: 20.00 Smoking status: Former smoker Tobacco type: cigarettes Second hand tobacco smoke exposure: No Smoking end date: 03/13/23 Alcohol intake: former Alcohol use details: September 11, 2022 pt quit Substance use: never Substance use type: does not use Do You Feel Safe in your Home?: Yes Lack of Transportation: No Lack of Food: Never True Current Housing: I Have Housing Concerned About Future Housing: No Difficulty Paying Gas/Electric Bills: No Difficulty Paying for Meds: No Currently Unemployed: YES Education: Trade/Vocational Certificate Difficulty w/ Childcare or Family Care: No Living arrangements: other Additional living arrangements comments: with sp Occupation/Education: retired Gender identity (if verbalized by the patient): Male Sexual Orientation (if Verbalized by the Patient): Straight or Heterosexual Exam Narrative: GENERAL: Well-appearing, well-nourished, and in no acute distress. HEAD: Normocephalic, atraumatic. EYES: Non injected, non icteric ENT: Nares clear, no rhinorrhea or epistaxis. NECK: Supple. CHEST: Speaking in full sentences. No respiratory distress. HEART: Regular rate and rhythm. . ABDOMEN: Soft, nondistended. EXTREMITIES: Normal range of motion. No lower extremity edema. Right great toe with missing nail. Paronychia along bilateral edges of great toe as well as along distal aspect, bordering the now absent nail. Well demarcated yellow/white areas with tenderness to palpation and surrounding erythema. SKIN: Warm, dry, no rash. NEURO: No focal deficits. Alert and oriented x3. PSYCH: Normal mood and affect. Course Vital Signs Vital signs: Vital Signs Temperature 97.4 F L 06/30/24 20:04 Pulse Rate 105 H 06/30/24 20:04 Respiratory Rate 20 06/30/24 20:04 Blood Pressure 159/79 H 06/30/24 20:04 Pulse Oximetry 99 06/30/24 20:04 Oxygen Delivery Room Air 06/30/24 20:04 Temperature 97.7 F 07/01/24 00:02 Pulse Rate 89 07/01/24 00:02 Respiratory Rate 16 07/01/24 00:02 Blood Pressure 136/72 07/01/24 00:02 Pulse Oximetry 99 07/01/24 00:02 Oxygen Delivery Room Air 06/30/24 20:04 Procedures Abscess I/D foot: Side (if applicable): right (great toe - paronychia) Sedation/analgesia: none Local Anesthetic: lidocaine 1% Amount of anesthesia used (mL): 3 Technique: incised with #11 blade Packing used?: none I&D Results: Blood (scant) Abcess I&D Additional Comments: No complications Nerve Block Nerve Block 1: Local Anesthetic: lidocaine 1% Amount of anesthesia used (mL): 3 Side: right Nerve Blocks: digital Procedure Successful: Yes Patient Tolerated Procedure: well and no complications MDM - Wound/Laceration MDM Narrative Medical decision making narrative: This is a 68 yo male with diabetes who presents with concern for right great toe infection. In the emergency department he is afebrile with vital signs notable for mild tachycardia and hypertension. He is status post nail avulsion/removal by broke beater approximately 2 weeks ago but his dog stepped on his toe and then licked it earlier today and he now has evidence of paronychia tonight. Digital block and paronychia I&D performed as above. Patient given first dose of antibiotic and rest of course prescribed. Advised follow up with broke beater and ED return precautions. Discussed wound care. Wound dressed by RN and patient also given Rx for triple antibiotic. Differential Diagnosis Differential diagnosis: Likely abscess and other (cellulitis, gout, osteomyelitis) Discharge Plan Discharge Clinical Impression: Paronychia of great toe, right, Encounter for incision and drainage procedure Patient Disposition: Home, Self-Care Condition: Stable Instructions: Antibiotic Form, Paronychia (ED), Incision and Drainage (ED) Additional Instructions: You can perform warm compresses, soaks, and elevate it. Clean soapy water is fine but make sure it is fully dry before you apply any bandage if you are going to since bacteria and fungus love warm moist environments. Avoid using hydrogen peroxide or applying Neosporin. You can either use the triple antibiotic ointment prescribed or any antibiotic ointment you have at home also Vaseline/petroleum jelly is also effective. Take the course of antibiotics. You received the 1st dose in the emergency department. Follow-up with your broke beater. Return to the emergency department with any new or worsening symptoms. Patient Language: Dutch Prescriptions: New Triple Antibiotic 3.5mg-400 unit- 5,000 unit/gram ointment 1 applic topical TID 7 Days Qty: 14 0RF amoxicillin-pot clavulanate 875-125 mg tablet 1 tablet PO Q12H 7 Days Qty: 13 0RF Rx Instructions: start 07/01/24; received first dose in ED 06/30/24 PM No Action amlodipine 10 mg tablet 10 mg PO DAILY Qty: 90 1RF valsartan 320 mg tablet 320 mg PO DAILY Qty: 90 1RF duloxetine [Cymbalta] 60 mg capsule,delayed release(DR/EC) 60 mg PO DAILY aripiprazole [Abilify] 5 mg tablet 5 mg PO DAILY cyclobenzaprine 10 mg tablet 10 mg PO BID hydrocodone-acetaminophen 10-300 mg tablet 1 tablet PO Q8H Qty: 1 0RF hydroxychloroquine 200 mg tablet 200 mg PO BID metoprolol succinate 25 mg tablet extended release 24 hr 25 mg PO DAILY Qty: 90 1RF latanoprost 0.005 % drops 1 drp EACH EYE DAILY lidocaine 5 % adhesive patch,medicated 1 patch topical DAILY Qty: 15 0RF Rx Instructions: leave on most painful area for up to 12 hrs. do not use more than 1 patch in a 24-hour period. sildenafil [Viagra] 50 mg tablet 50 mg PO DAILY PRN (Reason: sexual activity) Qty: 10 0RF Rx Instructions: administer 30 minutes to 4 hours before activity rabeprazole [AcipHex] 20 mg tablet,delayed release (DR/EC) 20 mg PO DAILY Qty: 90 3RF atorvastatin 10 mg tablet 10 mg PO DAILY Qty: 90 3RF hydrochlorothiazide 25 mg tablet 25 mg PO DAILY Qty: 90 1RF Follow-up/Referrals: Paul Man MD [Primary Care Provider] - Toño Patel Jr., DPM [Physician] - Stand Alone Forms: Work/School Release IP Time of Disposition: 23:41
--- OUTSIDE RECORDS SUMMARY | 2024-06-30 23:05 | XMS_ITS | Encounter Summary ---
Author Organization [facility] Address [address] [facility] [place] [address] Care Team Providers Care Unit Aid Name Role Phone Paul Man MD Primary Care Provider [phone] Encounter Details Date Type Department Care Team (Late st Contact Info) Description 08/21/2023 Lab Requisition [facility] - DermPath Lab [address] [facility], [place] [id number] Matthias Peoples MD [facility] DERMATOLOGY [address] [place] [id number] Neoplasm of uncertain behavior of skin; [...] AM CDT) Case Report Dermatopathology Report Case: [id number] Authorizing Provider: Matthias Peoples MD Collected: 08/21/2023 12:00 AM Ordering Location: [facility] - Received: 08/23/2023 01:49 PM DermPath [...] measuring 3x3x1 mm. Jar 0. 11:41 AM [facility] DERMATOPATHOLOGY LABORATORY Microscopic Description Specimen A. SKIN, [...] collagen is delicate and pale. 11:41 AM [facility] DERMATOPATHOLOGY LABORATORY Disclaimer An external and internal positive and negative controls are appropriate for the histochemical, immunohistochemical and immunofluorescence stain(s) in this case (if any), except where stated explicitly. The performance characteristics of the stain(s) cited in this report were developed and its performance characteristic determined by the Dermatopathology Laboratory at [facility], directed by Dr. Arturo Hatfield. These tests need not be, and therefore are not, approved by the [place] Food and Drug Administration. The tests are used for clinical purposes. 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
--- OUTSIDE RECORDS SUMMARY | 2024-06-30 23:05 | XMS_ITS | Continuity of Care Document ---
Author Organization [facility] Address [address] [place] [address] [address] [place] [address] Phone Care Team Providers Care Focused Factory Manager Name Role Phone Michelle Catalan Unavailable Unavailable Advance Directives Directive Yes / No Effective Date File Name No Information Encounters Encounter Description Practice Location Reason(s) For Visit Diagnoses Date Provider Providers Copied on Encounter [facility], [id number] [place] [address] [address], [place], [place], [id number], [place] tel:[phone] [facility] [place] No Information [address]. [address] [facility] , [address], [place], [address], [place]. tel:[phone] Family History Family Member Type Diagnosis Age At Onset No Information Payers Payer name Insurance type Covered libertarian ID Authoriza tion(s) No Information Social History [...]
--- OUTSIDE RECORDS SUMMARY | 2024-06-30 23:05 | XMS_ITS | Referral Summary ---
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 Gender Identity Not on file Sexual Orientation Not on file Last Filed Vital Signs Vital Sign Reading Time Taken Comments Blood Pressure - - Pulse - - Temperature - - Respiratory Rate - - Oxygen Saturation - - Inhaled Oxygen Concentration - - Weight 92.5 kg (204 lb) 05/12/2017 8:04 AM PROTECTIVE SIGNAL INSTALLER HELPER Height 175.3 cm (5' 9 ) 05/12/2017 8:04 AM PROTECTIVE SIGNAL INSTALLER HELPER Body Mass Index 30.13 05/12/2017 8:04 AM PROTECTIVE SIGNAL INSTALLER HELPER Plan of Treatment Not on file Insurance [facility] CLAIMS [facility] CLAIM[facility] Care Teams Lot Attendant Relationship Specialty Start Date End Date Paul Man MD [address] [facility] [address] [place] [address] PCP - General Family Medicine 04/28/17
--- OUTSIDE RECORDS SUMMARY | 2024-06-30 23:05 | XMS_ITS | Clinical Summary ---
Author Organization [facility] Address [address] [facility] [place] [address] Care Team Providers Care Mr Teacher Name Role Phone Paul Man MD Primary Care Provider [phone] Source Comments [facility],non-owned Affiliates and Associated Physician Practices is amultiple site organization consisting of ambulatory clinics and hospital sitesin [place], [place], [place] and [place]. This disclosure is being madepursuant to the Care Everywhere program and may not contain all information available regarding this patient. Last updated 17.[facility] Allergies Active Allergy Reactions Criticality Noted Date [...] age to complete this topic Care Teams Mr Teacher Relationship Specialty Start Date End Date Paul Man MD [address] [place] [address] PCP - General 06/24/10
--- OUTSIDE RECORDS SUMMARY | 2024-06-30 23:05 | XMS_ITS | Clinical Summary ---
Author Organization [facility] Address [address] [place] [address] Care Team Providers Care Residential Program Coordinator Name Role Phone Unavailable Primary Care Provider [...]
--- OUTSIDE RECORDS SUMMARY | 2024-06-30 23:05 | XMS_ITS | CONTINUITY OF CARE DOCUMENT ---
Author Name stacy yarelybernardino Address Unknown Organization [facility] Address [address] [facility] [address] [place] [address] Phone [phone] Care Team Providers Care Special Forces Engineer Sergeant Name Role Phone Bravo Benito MD Unavailable [...] Payer name Policy type / Coverage type [place] [employer] party ID FRANKLIN MATIAS [id number]
--- OUTSIDE RECORDS SUMMARY | 2024-06-30 23:05 | XMS_ITS | Clinical Summary ---
Author Organization [facility] [address] 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 Gender Identity Not on file Sexual Orientation Not on file Last Filed Vital Signs Vital Sign Reading Time Taken Comments Blood Pressure - - Pulse - - Temperature - - Respiratory Rate - - Oxygen Saturation - - Inhaled Oxygen Concentration - - Weight 92.5 kg (204 lb) 05/12/2017 8:04 AM COTTON FARMER Height 175.3 cm (5' 9 ) 05/12/2017 8:04 AM COTTON FARMER Body Mass Index 30.13 05/12/2017 8:04 AM COTTON FARMER Plan of Treatment Not on file Insurance [facility] CLAIMS [facility] CLAIM[facility] Care Teams Neonatal Nurse Relationship Specialty Start Date End Date Paul Man MD [address] [facility] [address] [place] [address] PCP - General Family Medicine 04/28/17
[2024-06-30] MEDS: LIDOCAINE 1% LOCAL INJ 10 ML VIAL INFILTRATE (23:18)
[2024-06-30] MEDS: AMOXICILLIN/CLAVULANATE K 875-125 MG TAB 1 TABLET PO (23:18)
[2024-06-30] MEDS: HYDROcodone/acetaminophen (*CRX) 5-325 MG TABLET 1 TAB PO (23:18)
[2024-06-30] MEDS: NEOMYCIN/POLYMYXIN/BACITRACIN OINTMENT PACKET 1 PACKET TOPICAL (23:38)
[2024-07-01 00:02] VITALS: BP 136/72; PULSE 89; RESP 16; TEMP 36.5; O2SAT 99
== END 2024-07-01 00:03 | disposition home or self-care (01) ==
PROVIDERS: Emergency Provider Student in an Organized Health Care Education/Training Program; PCP Family Medicine
DX: L03.031 Cellulitis of right toe (principal); Z87.891 Personal history of nicotine dependence; E11.9 Type 2 diabetes mellitus without complications; H40.9 Unspecified glaucoma; J44.9 Chronic obstructive pulmonary disease, unspecified; I10 Essential (primary) hypertension
CPT/HCPCS: 10060; 99283; A9270; J2003

== ENCOUNTER 2024-07-15 09:31 | Outpatient (CLI) | payer MEDICARE, OTHER, SELFPAY ==
--- OUTSIDE RECORDS SUMMARY | 2024-07-15 10:32 | XMS_ITS | Continuity of Care Document ---
Author Organization [facility] Address [address] [place] [address] [address] [place] [address] Phone Care Team Providers Care Professor Computer Science Name Role Phone Michelle Catalan Unavailable Unavailable Advance Directives Directive Yes / No Effective Date File Name No Information Encounters Encounter Description Practice Location Reason(s) For Visit Diagnoses Date Provider Providers Copied on Encounter [facility], [id number] [place] [address] [address], [place], [place], [id number], [place] tel:[phone] [facility] [place] No Information [address]. [address] [facility] , [address], [place], [address], [place]. tel:[phone] Family History Family Member Type Diagnosis Age [...]
--- OUTSIDE RECORDS SUMMARY | 2024-07-15 10:32 | XMS_ITS | Referral Summary ---
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 Gender Identity Not on file Sexual Orientation Not on file Last Filed Vital Signs Vital Sign Reading Time Taken Comments Blood Pressure - - Pulse - - Temperature - - Respiratory Rate - - Oxygen Saturation - - Inhaled Oxygen Concentration - - Weight 92.5 kg (204 lb) 05/12/2017 8:04 AM REMOTE SENSING TECHNOLOGIST Height 175.3 cm (5' 9 ) 05/12/2017 8:04 AM REMOTE SENSING TECHNOLOGIST Body Mass Index 30.13 05/12/2017 8:04 AM REMOTE SENSING TECHNOLOGIST Plan of Treatment Not on file Insurance [facility] CLAIMS [facility] CLAIM[facility] Care Teams Attendant Honor Bar Relationship Specialty Start Date End Date Paul Man MD [address] [facility] [address] [place] [address] PCP - General Family Medicine 04/28/17
--- OUTSIDE RECORDS SUMMARY | 2024-07-15 10:32 | XMS_ITS | Clinical Summary ---
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 Gender Identity Not on file Sexual Orientation Not on file Last Filed Vital Signs Vital Sign Reading Time Taken Comments Blood Pressure - - Pulse - - Temperature - - Respiratory Rate - - Oxygen Saturation - - Inhaled Oxygen Concentration - - Weight 92.5 kg (204 lb) 05/12/2017 8:04 AM SECURITY CONTROLS ASSESSOR Height 175.3 cm (5' 9 ) 05/12/2017 8:04 AM SECURITY CONTROLS ASSESSOR Body Mass Index 30.13 05/12/2017 8:04 AM SECURITY CONTROLS ASSESSOR Plan of Treatment Not on file Insurance [facility] CLAIMS [facility] CLAIM[facility] Care Teams Builder Beam Relationship Specialty Start Date End Date Paul Man MD [address] [facility] [address] [place] [address] PCP - General Family Medicine 04/28/17
--- OUTSIDE RECORDS SUMMARY | 2024-07-15 10:32 | XMS_ITS | Encounter Summary ---
Author Organization [facility] Address [address] [place] [address] Care Team Providers Care Sanitation Worker Hosing Machinery Name Role Phone Paul Man MD Primary Care Provider [phone] Encounter Details Date Type Department Care Team (Late st Contact Info) Description 08/21/2023 Lab Requisition [facility] - DermPath Lab [address] [facility], [place] [address] Matthias Peoples MD [facility] DERMATOLOGY [address] [place] [phone] Neoplasm of uncertain behavior of skin; [...] AM CDT) Case Report Dermatopathology Report Case: [id number] Authorizing Provider: Matthias Peoples MD Collected: 08/21/2023 12:00 AM Ordering Location: [facility] - Received: 08/23/2023 01:49 PM DermPath Lab Pathologist: Sivlia Mcdonnell MD Specimens: A) - Skin, right [...] measuring 3x3x1 mm. Jar 0. 11:41 AM [facility] DERMATOPATHOLOGY LABORATORY Microscopic Description Specimen A. SKIN, [...] collagen is delicate and pale. 11:41 AM [facility] DERMATOPATHOLOGY LABORATORY Disclaimer An external and internal positive and negative controls are appropriate for the histochemical, immunohistochemical and immunofluorescence stain(s) in this case (if any), except where stated explicitly. The performance characteristics of the stain(s) cited in this report were developed and its performance characteristic determined by the Dermatopathology Laboratory at [facility], directed by Dr. Arturo Hatfield. These tests need not be, and therefore are not, approved by the [place] Food and Drug Administration. The tests are used for clinical purposes. 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
--- OUTSIDE RECORDS SUMMARY | 2024-07-15 10:32 | XMS_ITS | Clinical Summary ---
Author Organization [facility] Address [address] [place] [address] Care Team Providers Care Cooling Tower Operator Name Role Phone Paul Man MD Primary Care Provider [phone] Source Comments [facility],non-owned Affiliates and Associated Physician Practices is amultiple site organization consisting of ambulatory clinics and hospital sitesin [place], [place], [place] and [place]. This disclosure is being madepursuant to the Care Everywhere program and may not contain all information available regarding this patient. Last updated 17.[facility] Allergies Active Allergy Reactions Criticality Noted Date [...] VACCINE (1 - 2023-2 5 season) 2023 DEPRESSION SCREENING 04/10/2024 INFLUENZA VACCINE (Season Ended) 2024 01/07/20 18 Respiratory Syncytial Virus (RSV) Vaccine Pt: or [...] age to complete this topic Care Teams Cooling Tower Operator Relationship Specialty Start Date End Date Paul Man MD [address] [place] [address] PCP - General 06/24/10
--- OUTSIDE RECORDS SUMMARY | 2024-07-15 10:32 | XMS_ITS | CONTINUITY OF CARE DOCUMENT ---
Author Name stacy yarelybernardino Address Unknown Organization [facility] Address [address] [facility] [address] [place] [address] Phone [phone] Care Team Providers Care Donkey Engine Firer/Fireman Name Role Phone Bravo Benito MD Unavailable [...] Payer name Policy type / Coverage type [place] red constitution party ID FRANKLIN MATIAS [id number]
[2024-07-15 11:21] LABS: Add Urine Microscopic? YES; Appearance Urine Clear (Clear); Bacteria Urine None Seen /hpf; Bilirubin Urine Negative (Negative); Blood Urine Negative (Negative); Color Urine Yellow (Yellow); Glucose Urine UA Negative (Negative); Ketones Urine Negative (Negative); Leukocyte Esterase Ur Negative LEU/UL (Negative); Nitrate Urine Negative (Negative); Non Pathogenic Casts 0-2; Protein Urine Trace mg/dL (Negative); RBC Urine 0-2 /hpf (0-2); Specific Grav Ur 1.017 (1.001-1.035); Squamous Epithelial Cell Urine None Seen /hpf (Few); WBC Urine 0-5 /hpf (0-3)
[2024-07-15 11:23] LABS: Hematocrit 39.4 % (42.0-52.0); Mean Corpuscular HGB Conc 35.5 g/dl (32-36); Mean Corpuscular Hemoglobin 31.7 pg (26-34); Mean Corpuscular Volume 89.3 fl (80-100); Mean Platelet Volume 9.3 fl (7.4-10.4); Platelet Count Result 283 k/mm3 (150-375); Red Blood Count 4.41 M/mm3 (4.6-6.20); Red Cell Distribution Width 12.3 % (11.5-14.5)
[2024-07-15 11:33] LABS: Prothrombin Time 13.3 Seconds (11.1-14.7)
[2024-07-15 12:32] LABS: Anion Gap 14 mmol/L (4-12); Blood Urea Nitrogen 5 mg/dL (9-20); Calcium 9.2 mg/dL (8.4-10.2); Carbon Dioxide 24 mmol/L (22-30); Chloride 83 mmol/L (98-107); Estimated Glomerular Filt Rate > 60; Glucose 125 mg/dL (65-110); Potassium 3.4 mmol/L (3.4-5.0); Sodium 121 mmol/L (137-145)
== END 2024-07-15 09:32 | disposition home or self-care (01) ==
LOC: ANHSURGERY 09:38
PROVIDERS: PCP Family Medicine; Visit Provider Neurological Surgery
DX: M48.061 Spinal stenosis, lumbar region without neurogenic claudication (principal); Z01.818 Encounter for other preprocedural examination
CPT/HCPCS: 36415; 80048; 81001; 85027; 85610; 85730

== ENCOUNTER 2024-08-02 00:34 | Day surgery (SDC) | payer MEDICARE, OTHER, SELFPAY ==
--- NOTE | 2024-07-15 09:46 | PC.NURSE ---
Report to the Outpatient Waiting Room, entrance under the green pavilion located off [facility], at time _6 AM on date __08/02/24 . Planned Procedure Time: __7:30 AM .? Time changes happen often and if your time is changed the preop area will call you the afternoon before. - You and your visitor will be asked to self-screen and do not enter if you have any COVID symptoms. Please call surgeon if you need to reschedule. - A mask is optional within the hospital at this time. Patients may have clear liquids (water, carbonated beverages, clear teas, apple juice) until 3 hours prior to surgery ( 4:30 AM) with a maximum of 20 ounces. - No food from midnight until time of surgery and no smoking, or chewing tobacco (or any form of nicotine). No chewing gum, candy or mints. Take only the following medications with a SIP of water on the morning of surgery: _AMLODIPINE,DULOXETINE,HYDROCODONE IF NEEDED FOR PAIN,METOPROLOL DO NOT STOP ANY OF YOUR OTHER PRESCRIPTION MEDICATIONS PRIOR TO SURGERY EXCEPT THE FOLLOWING Hold all vitamins and supplements for 3 days per anesthesiologist. Medications to discontinue per physician NONE Please no make-up, nail moroccan, hairspray, perfume, deodorant, or body powder the day of surgery.? No jewelry (including any body piercings) or valuables the day of surgery, leave them at home.? Please take a shower or bath the night before, or the morning of, surgery with an antibacterial soap.? Wear comfortable, loose fitting clothing.? Children are encouraged to wear pajamas. - Jewelry must be removed prior to entering the operating room.? Rings and piercings that are not removed may be cut off. - The hospital will not accept responsibility for valuables.? - Please leave all valuables, including medications, at home the day of surgery. If you are going home after surgery, a licensed wheelchair van driver must drive you home.? - NO public transportation without another adult if you receive anesthesia. - We recommend that an adult stay with you for 24 hours following discharge. - We also recommend that you do not drive, make important decision, drink alcoholic beverages, or take any drugs that were not prescribed by your health care provider for at least 24 hours after your discharge time. For Pediatric surgeries, we recommend two adults accompany the child home. Follow any additional instructions given to you from your surgeon. VERBAL AND WRITTEN instructions given to __PATIENT__AND CONNOR and asked if any additional questions and then verbalized understanding. Patient advised to call surgeon office or pre surgery nurse liaison [phone] if any additional questions.
[2024-07-15 09:50] VITALS: BMI 33.3
[2024-07-15 10:32] VITALS: BP 147/74; PULSE 92; RESP 18; TEMP 36.4; O2SAT 98
--- OUTSIDE RECORDS SUMMARY | 2024-08-02 00:42 | XMS_ITS | Referral Summary ---
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 CLAIMS [facility] CLAIMS Care Teams Security And Compliance Project Manager Relationship Specialty Start Date End Date Paul Man MD [address] [facility] [address] [place] [address] PCP - General Family Medicine 04/28/17
--- OUTSIDE RECORDS SUMMARY | 2024-08-02 00:42 | XMS_ITS | Continuity of Care Document ---
Author Organization [facility] Address [address] [place] [address] [address] [place] [address] Phone Care Team Providers Care Associate Producer Name Role Phone Michelle Catalan Unavailable Unavailable Advance Directives Directive Yes / No Effective Date File Name No Information Encounters Encounter Description Practice Location Reason(s) For Visit Diagnoses Date Provider Providers Copied on Encounter [facility], [address] [place] [address] [address], [place], [place], [id number], [place] tel:[phone] [facility] [place] No Information [address]. [address] [facility] , [address], [place], [address], [place]. tel:[phone] Family History Family Member Type Diagnosis Age [...]
--- OUTSIDE RECORDS SUMMARY | 2024-08-02 00:42 | XMS_ITS | Clinical Summary ---
Author Organization [facility] Address [address] [facility] [place] [address] Care Team Providers Care Military Logistics Specialist Name Role Phone Paul Man MD Primary Care Provider [phone] Source Comments [facility],non-owned Affiliates and Associated Physician Practices is amultiple site organization consisting of ambulatory clinics and hospital sitesin [place], [place], [place] and [place]. This disclosure is being madepursuant to the Care Everywhere program and may not contain all information available regarding this patient. 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 Gender Identity Not on file Sexual Orientation [...] on patient's age to complete this topic Insurance MEDICARE MEDICARE * Guarantor: MATHIEU HERNÁNDEZ Account Type Relation to Patient Date of Phone Billing Address Personal/Family [address] [place] [address] MEDICARE Member Subscriber Plan / Payer (Ef fective for All Dates) Name:Mathieu Hernández Member ID:Not on file Relation to Subscriber:Self Name:Mathieu Hernández Subscriber ID:Not on file Payer ID:[id number] (NAIC) Group ID:Not on file Type:/ Address: [place] [id number] * Guarantor: MATHIEU HERNÁNDEZ Account Type Relation to Patient Date of Phone Billing Address Personal/Family [address] [place] [phone] MEDICARE * Guarantor: MATHIEU HERNÁNDEZ Account Type Relation to Patient Date of Phone Billing Address Personal/Family [address] [place] [phone] MEDICARE Care Teams Military Logistics Specialist Relationship Specialty Start Date End Date Paul Man MD [address] [place] [address] PCP - General 06/24/10
--- OUTSIDE RECORDS SUMMARY | 2024-08-02 00:42 | XMS_ITS | CONTINUITY OF CARE DOCUMENT ---
Author Name stacy yarelybernardino Address Unknown Organization [facility] Address [address] [facility] [address] [place] [address] Phone [phone] Care Team Providers Care Plugger Man Name Role Phone Bravo Benito MD Unavailable [...] Payer name Policy type / Coverage type [place] red green party ID FRANKLIN MATIAS [id number]
--- OUTSIDE RECORDS SUMMARY | 2024-08-02 00:42 | XMS_ITS | Encounter Summary ---
Author Organization [facility] Address [address] [facility] [place] [address] Care Team Providers Care Taxation Consultant Name Role Phone Paul Man MD Primary Care Provider [phone] Encounter Details Date Type Department Care Team (Late st Contact Info) Description 08/21/2023 Lab Requisition [facility] - DermPath Lab [address] [facility], [place] [id number] Matthias Peoples MD [facility] DERMATOLOGY [address] [place] [phone] Neoplasm of uncertain behavior of skin; [...] on file 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 Arturo Hatfield. These tests need not be, and therefore are not, approved by the [place] Food and Drug Administration. The tests are used for clinical purposes. 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
--- OUTSIDE RECORDS SUMMARY | 2024-08-02 00:42 | XMS_ITS | Clinical Summary ---
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 Gender Identity Not on file Sexual Orientation Not on file Last Filed Vital Signs Vital Sign Reading Time Taken Comments Blood Pressure - - Pulse - - Temperature - - Respiratory Rate - - Oxygen Saturation - - Inhaled Oxygen Concentration - - Weight 92.5 kg (204 lb) 05/12/2017 8:04 AM OUTPATIENT ADMITTING CLERK Height 175.3 cm (5' 9 ) 05/12/2017 8:04 AM OUTPATIENT ADMITTING CLERK Body Mass Index 30.13 05/12/2017 8:04 AM OUTPATIENT ADMITTING CLERK Plan of Treatment Not on file Insurance [facility] CLAIMS [facility] CLAIMS Care Teams Front Desk Associate Relationship Specialty Start Date End Date Paul Man MD [address] [facility] [address] [place] [address] PCP - General Family Medicine 04/28/17
--- OUTSIDE RECORDS SUMMARY | 2024-08-02 00:42 | XMS_ITS | Clinical Summary ---
Author Organization [facility] Address [address] [place] [address] Care Team Providers Care Receptionist Clerk Name Role Phone Unavailable Primary Care Provider [...] Td Vaccines ( 1 - Tdap) 12/03/1974 Pneumococcal Vaccine: 50+ Ye ars (1 of 1 - PCV) 12/03/2005 Zoster Vaccines (1 of 2) 12/03/2005 COVID-19 Vaccine ( - 2023-2 5 season) 2023 RSV Immunization or 60+ Years (1 - [...]
[2024-08-02 08:45] LABS: Anion Gap 11 mmol/L (4-12); Blood Urea Nitrogen 7 mg/dL (9-20); Calcium 9.5 mg/dL (8.4-10.2); Carbon Dioxide 24 mmol/L (22-30); Chloride 92 mmol/L (98-107); Estimated CRCL calculation 113 ml/min; Estimated Glomerular Filt Rate > 60; Glucose 134 mg/dL (65-110); Potassium 3.4 mmol/L (3.4-5.0); Sodium 127 mmol/L (137-145)
--- NOTE | 2024-08-02 08:55 | SUR.PREOP ---
0855: RN notified Dr. Mayer and Dr. Engel of sodium 127. Per MDs case cancelled so patient can be treated for hyponatremia by PCP and case can then be rescheduled. Patient notified.
--- NOTE | 2024-08-02 09:34 | SUR.PREOP ---
4708 Dr Engel spoke to patient and family about need to cancel today's procedure because of low sodium. Understanding stated.
== END 2024-08-02 09:30 | disposition home or self-care (01) ==
PROVIDERS: Anesthesiology; PCP Family Medicine; Visit Provider Neurological Surgery
PROC: (CPT 63005; principal; 2024-08-02 11:00)
DX: M48.061 Spinal stenosis, lumbar region without neurogenic claudication (principal); G89.29 Other chronic pain; M54.50 Low back pain, unspecified; I10 Essential (primary) hypertension; E78.00 Pure hypercholesterolemia, unspecified; J43.9 Emphysema, unspecified; K21.9 Gastro-esophageal reflux disease without esophagitis; E11.9 Type 2 diabetes mellitus without complications; D50.9 Iron deficiency anemia, unspecified; G62.9 Polyneuropathy, unspecified; E88.810 Metabolic syndrome; M19.90 Unspecified osteoarthritis, unspecified site; F43.10 Post-traumatic stress disorder, unspecified; G47.00 Insomnia, unspecified; L43.9 Lichen planus, unspecified; M54.16 Radiculopathy, lumbar region; Z79.891 Long term (current) use of opiate analgesic; Z98.890 Other specified postprocedural states; Z87.891 Personal history of nicotine dependence; Z86.0100 Personal history of colon polyps, unspecified; Z82.49 Family history of ischemic heart disease and other diseases of the circulatory system
CPT/HCPCS: 36415; 80048; 99211; G0463

== ENCOUNTER 2024-08-14 06:52 | Outpatient (CLI) | payer MEDICARE, OTHER, SELFPAY ==
--- OUTSIDE RECORDS SUMMARY | 2024-08-14 06:56 | XMS_ITS | Referral Summary ---
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 Gender Identity Not on file Sexual Orientation Not on file Last Filed Vital Signs Vital Sign Reading Time Taken Comments Blood Pressure - - Pulse - - Temperature - - Respiratory Rate - - Oxygen Saturation - - Inhaled Oxygen Concentration - - Weight 92.5 kg (204 lb) 05/12/2017 8:04 AM LICENSE DISTRIBUTOR Height 175.3 cm (5' 9 ) 05/12/2017 8:04 AM LICENSE DISTRIBUTOR Body Mass Index 30.13 05/12/2017 8:04 AM LICENSE DISTRIBUTOR Plan of Treatment Not on file Insurance [facility] CLAIMS [facility] CLAIMS Care Teams Hr Receptionist Relationship Specialty Start Date End Date Paul Man MD [address] [facility] [address] [place] [address] PCP - General Family Medicine 04/28/17
--- OUTSIDE RECORDS SUMMARY | 2024-08-14 06:56 | XMS_ITS | Clinical Summary ---
Author Organization [facility] Address [address] [facility] [place] [address] Care Team Providers Care Public Address System Mechanic Name Role Phone Paul Man MD Primary Care Provider [phone] Source Comments [facility],non-owned Affiliates and Associated Physician Practices is amultiple site organization consisting of ambulatory clinics and hospital sitesin [place], [place], [place] and [place]. This disclosure is being madepursuant to the Care Everywhere program and may not contain all information available regarding this patient. 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 Gender Identity Not on file Sexual Orientation [...] Date of Phone Billing Address Personal/Family [address] [place] [address] MEDICARE Member Subscriber Plan / Payer (Ef fective for All Dates) Name:Mathieu Hernández Member ID:Not on file Relation to Subscriber:Self Name:Mathieu Hernández Subscriber ID:Not on file Payer ID:[id number] (NAIC) Group ID:Not on file Type:/ Address: [place] [phone] * Guarantor: MATHIEU HERNÁNDEZ Account Type Relation to Patient Date of Phone Billing Address Personal/Family [address] [place] [phone] MEDICARE * Guarantor: MATHIEU HERNÁNDEZ Account Type Relation to Patient Date of Phone Billing Address Personal/Family [address] [place] [phone] MEDICARE Care Teams Public Address System Mechanic Relationship Specialty Start Date End Date Paul Man MD [address] [place] [address] PCP - General 06/24/10
--- OUTSIDE RECORDS SUMMARY | 2024-08-14 06:56 | XMS_ITS | Clinical Summary ---
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 Gender Identity Not on file Sexual Orientation Not on file Last Filed Vital Signs Vital Sign Reading Time Taken Comments Blood Pressure - - Pulse - - Temperature - - Respiratory Rate - - Oxygen Saturation - - Inhaled Oxygen Concentration - - Weight 92.5 kg (204 lb) 05/12/2017 8:04 AM YARD MANAGER Height 175.3 cm (5' 9 ) 05/12/2017 8:04 AM YARD MANAGER Body Mass Index 30.13 05/12/2017 8:04 AM YARD MANAGER Plan of Treatment Not on file Insurance [facility] CLAIMS [facility] CLAIMS Care Teams Parking Patroller Relationship Specialty Start Date End Date Paul Man MD [address] [facility] 120 [place] [address] PCP - General Family Medicine 04/28/17
--- OUTSIDE RECORDS SUMMARY | 2024-08-14 06:56 | XMS_ITS | Clinical Summary ---
Author Organization [facility] Address [address] [place] [address] Care Team Providers Care Chemical Dependency Therapist Name Role Phone Unavailable Primary Care Provider [...]
--- OUTSIDE RECORDS SUMMARY | 2024-08-14 06:56 | XMS_ITS | Continuity of Care Document ---
Author Organization [facility] Address [address] [place] [address] [address] [place] [address] Phone Care Team Providers Care Machine Long Goods Helper Name Role Phone Michelle Catalan Unavailable Unavailable Advance Directives Directive Yes / No Effective Date File Name No Information Encounters Encounter Description Practice Location Reason(s) For Visit Diagnoses Date Provider Providers Copied on Encounter [facility], [address] [place] [address] [address], [place], [place], [id number], [place] tel:[phone] [facility] [place] No Information [address]. [address] [facility] , [address], [place], [address], [place]. tel:[phone] Family History Family Member Type Diagnosis Age At Onset No Information Payers Payer name Insurance type Covered alliance party ID Authoriza tion(s) No Information Social History [...]
--- OUTSIDE RECORDS SUMMARY | 2024-08-14 06:56 | XMS_ITS | Encounter Summary ---
Author Organization [facility] Address [address] [facility] [place] [address] Care Team Providers Care Pocket Machine Operator Name Role Phone Paul Man MD Primary Care Provider [phone] Encounter Details Date Type Department Care Team (Late st Contact Info) Description 08/21/2023 Lab Requisition [facility] - DermPath Lab [address] [facility], [place] [address] Matthias Peoples MD [facility] DERMATOLOGY [address] [place] [phone] Neoplasm of uncertain behavior of skin; [...] on file 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 Jar 0. 11:[address] [facility] DERMATOPATHOLOGY LABORATORY Microscopic Description Specimen A. [...] collagen is delicate and pale. 11:[address] [facility] DERMATOPATHOLOGY LABORATORY Disclaimer An external and internal positive and negative controls are appropriate for the histochemical, immunohistochemical and immunofluorescence stain(s) in this case (if any), except where stated explicitly. The performance characteristics of the stain(s) cited in this report were developed and its performance characteristic determined by the Dermatopathology Laboratory at [facility], directed by Dr. Arturo Hatfield. These tests need not be, and therefore are not, approved by the [place] Food and Drug Administration. The tests are used for clinical purposes. Billing Codes Specimen Charges Stain Charges 41362 53317 30491 26948 1 1 1 1 11:[address] [facility] DERMATOPATHOLOGY LABORATORY Embedded Images 11:[address] 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
--- OUTSIDE RECORDS SUMMARY | 2024-08-14 06:56 | XMS_ITS | CONTINUITY OF CARE DOCUMENT ---
Author Name stacy yarelybernardino Address Unknown Organization [facility] Address [address] [facility] [address] [place] [address] Phone [phone] Care Team Providers Care Art Therapy Certified Supervisor Name Role Phone Bravo Benito MD Unavailable [phone] PROBLEMS Condition Status Date Provider Notes ANGINA [...] Payer name Policy type / Coverage type [place] red alliance party ID FRANKLIN MATIAS [id number]
[2024-08-14 08:09] LABS: Anion Gap 9 mmol/L (4-12); Blood Urea Nitrogen 9 mg/dL (9-20); Carbon Dioxide 28 mmol/L (22-30); Chloride 97 mmol/L (98-107); Estimated Glomerular Filt Rate > 60; Glucose 105 mg/dL (65-110); Sodium 134 mmol/L (137-145)
== END 2024-08-14 06:53 | disposition home or self-care (01) ==
LOC: ANHLAB 06:53
PROVIDERS: PCP Family Medicine; Visit Provider Physician Assistant Medical
DX: E87.1 Hypo-osmolality and hyponatremia (principal)
CPT/HCPCS: 36415; 80048

== ENCOUNTER 2024-08-21 10:50 | Outpatient (CLI) | payer MEDICARE, OTHER, SELFPAY ==
--- OUTSIDE RECORDS SUMMARY | 2024-08-21 11:05 | XMS_ITS | Encounter Summary ---
Author Organization [facility] Address [address] [place] [address] Care Team Providers Care Profile Trimmer Name Role Phone Paul Man MD Primary Care Provider Encounter Details Date Type Department Care Team (Late st Contact Info) Description 08/21/2023 Lab Requisition [facility] - DermPath Lab [address] 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 Jar 0. 11:41 AM [facility] DERMATOPATHOLOGY LABORATORY Microscopic Description Specimen A. SKIN, [...] collagen is delicate and pale. 11:41 AM [facility] DERMATOPATHOLOGY LABORATORY Disclaimer An external and internal positive and negative controls are appropriate for the histochemical, immunohistochemical and immunofluorescence stain(s) in this case (if any), except where stated explicitly. The performance characteristics of the stain(s) cited in this report were developed and its performance characteristic determined by the Dermatopathology Laboratory at [facility], directed by Dr. Arturo Haftield. These tests need not be, and therefore are not, approved by the [place] Food and Drug Administration. The tests are used for clinical purposes. 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
--- OUTSIDE RECORDS SUMMARY | 2024-08-21 11:05 | XMS_ITS | Clinical Summary ---
Author Organization [facility] Address [address] [place] [address] Care Team Providers Care Pecan Huller Name Role Phone Paul Man MD Primary Care Provider [phone] Source Comments [facility],non-owned Affiliates and Associated Physician Practices is amultiple site organization consisting of ambulatory clinics and hospital sitesin [place], [place], [place] and [place]. This disclosure is being madepursuant to the Care Everywhere program and may not contain all information available regarding this patient. 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 Gender Identity Not on file Sexual Orientation [...] to complete this topic Insurance [place] [address] * Guarantor: MATHIEU HERNÁNDEZ Account Type Relation to Patient Date of Phone Billing Address Personal/Family [address] [place] [address] MEDICARE Member Subscriber Plan / Payer (Ef fective for All Dates) Name:Mathieu Hernández Member ID:Not on file Relation to Subscriber:Self Name:Mathieu Hernández Subscriber ID:Not on file Payer ID:[id number] (NAIC) Group ID:Not on file Type:/ Address: [place] [phone] * Guarantor: MATHIEU HERNÁNDEZ Account Type Relation to Patient Date of Phone Billing Address Personal/Family [address] [place] [phone] MEDICARE * Guarantor: MATHIEU HERNÁNDEZ Account Type Relation to Patient Date of Phone Billing Address Personal/Family [address] [place] [phone] MEDICARE Care Teams Pecan Huller Relationship Specialty Start Date End Date Paul Man MD [address] [place] [address] PCP - General 06/24/10
--- OUTSIDE RECORDS SUMMARY | 2024-08-21 11:05 | XMS_ITS | Continuity of Care Document ---
Author Organization [facility] Address [address] [place] [address] [address] [place] [address] Phone Care Team Providers Care Accounting Advisory Services Manager Name Role Phone Michelle Catalan Unavailable Unavailable Advance Directives Directive Yes / No Effective Date File Name No Information Encounters Encounter Description Practice Location Reason(s) For Visit Diagnoses Date Provider Providers Copied on Encounter [facility], [id number] [place] [address] [address], [place], [place], [id number], [place] tel:[phone] [facility] [place] No Information [address]. [address] [facility] , [address], [place], [address], [place]. tel:[phone] Family History Family Member Type Diagnosis Age At Onset No Information Payers Payer name Insurance type Covered republican ID Authoriza tion(s) No Information Social History [...]
--- OUTSIDE RECORDS SUMMARY | 2024-08-21 11:05 | XMS_ITS | CONTINUITY OF CARE DOCUMENT ---
Author Name stacy yarelybernardino Address Unknown Organization [facility] Address [address] [facility] [address] [place] [address] Phone [phone] Care Team Providers Care Bisque Cleaner Name Role Phone Bravo Benito MD Unavailable [...] Payer name Policy type / Coverage type [place] red libertarian ID FRANKLIN MATIAS [id number]
--- OUTSIDE RECORDS SUMMARY | 2024-08-21 11:05 | XMS_ITS | Clinical Summary ---
Author Organization [facility] Address [address] [place] [address] Care Team Providers Care Assembler Fitter Name Role Phone Unavailable Primary Care Provider [...]
--- OUTSIDE RECORDS SUMMARY | 2024-08-21 11:05 | XMS_ITS | Referral Summary ---
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 Gender Identity Not on file Sexual Orientation Not on file Last Filed Vital Signs Vital Sign Reading Time Taken Comments Blood Pressure - - Pulse - - Temperature - - Respiratory Rate - - Oxygen Saturation - - Inhaled Oxygen Concentration - - Weight 92.5 kg (204 lb) 05/12/2017 8:04 AM BATTERY VENT PLUG INSERTER Height 175.3 cm (5' 9 ) 05/12/2017 8:04 AM BATTERY VENT PLUG INSERTER Body Mass Index 30.13 05/12/2017 8:04 AM BATTERY VENT PLUG INSERTER Plan of Treatment Not on file Insurance [facility] CLAIMS [facility] CLAIMS Care Teams Enterostomal Therapy Nurse Relationship Specialty Start Date End Date Paul Man MD [address] [facility] [address] [place] [address] PCP - General Family Medicine 04/28/17
--- OUTSIDE RECORDS SUMMARY | 2024-08-21 11:05 | XMS_ITS | Clinical Summary ---
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 Gender Identity Not on file Sexual Orientation Not on file Last Filed Vital Signs Vital Sign Reading Time Taken Comments Blood Pressure - - Pulse - - Temperature - - Respiratory Rate - - Oxygen Saturation - - Inhaled Oxygen Concentration - - Weight 92.5 kg (204 lb) 05/12/2017 8:04 AM REINFORCING ROD LAYER Height 175.3 cm (5' 9 ) 05/12/2017 8:04 AM REINFORCING ROD LAYER Body Mass Index 30.13 05/12/2017 8:04 AM REINFORCING ROD LAYER Plan of Treatment Not on file Insurance [facility] CLAIMS [facility] CLAIM[facility] Care Teams Self Propelled Dredge Operator Relationship Specialty Start Date End Date Paul Man MD [address] [facility] [address] [place] [address] PCP - General Family Medicine 04/28/17
[2024-08-21 12:00] LABS: Anion Gap 14 mmol/L (4-12); Blood Urea Nitrogen 7 mg/dL (9-20); Calcium 9.5 mg/dL (8.4-10.2); Carbon Dioxide 22 mmol/L (22-30); Chloride 94 mmol/L (98-107); Estimated Glomerular Filt Rate > 60; Glucose 123 mg/dL (65-110); Potassium 3.6 mmol/L (3.4-5.0); Sodium 130 mmol/L (137-145)
== END 2024-08-21 10:51 | disposition home or self-care (01) ==
PROVIDERS: PCP Family Medicine; Visit Provider Physician Assistant Medical
DX: E87.1 Hypo-osmolality and hyponatremia (principal)
CPT/HCPCS: 36415; 80048

== ENCOUNTER 2024-08-28 10:16 | Outpatient (CLI) | payer MEDICARE, OTHER, SELFPAY ==
[2024-08-28 10:45] LABS: Anion Gap 11 mmol/L (4-12); Blood Urea Nitrogen 8 mg/dL (9-20); Calcium 9.4 mg/dL (8.4-10.2); Carbon Dioxide 21 mmol/L (22-30); Chloride 93 mmol/L (98-107); Estimated Glomerular Filt Rate > 60; Glucose 124 mg/dL (65-110); Sodium 125 mmol/L (137-145)
--- OUTSIDE RECORDS SUMMARY | 2024-08-28 10:54 | XMS_ITS | Referral Summary ---
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 Gender Identity Not on file Sexual Orientation Not on file Last Filed Vital Signs Vital Sign Reading Time Taken Comments Blood Pressure - - Pulse - - Temperature - - Respiratory Rate - - Oxygen Saturation - - Inhaled Oxygen Concentration - - Weight 92.5 kg (204 lb) 05/12/2017 8:04 AM MAIL ORDER BILLER Height 175.3 cm (5' 9 ) 05/12/2017 8:04 AM MAIL ORDER BILLER Body Mass Index 30.13 05/12/2017 8:04 AM MAIL ORDER BILLER Plan of Treatment Not on file Insurance [facility] CLAIMS [facility] Care Teams Aircraft Instrument Repairer Relationship Specialty Start Date End Date Paul Man MD [address] [facility] [address] [place] [address] PCP - General Family Medicine 04/28/17
--- OUTSIDE RECORDS SUMMARY | 2024-08-28 10:54 | XMS_ITS | Encounter Summary ---
Author Organization [facility] Address [address] [place] [address] Care Team Providers Care Electrical Engineering Director Name Role Phone Paul Man MD Primary Care Provider [phone] Encounter Details Date Type Department Care Team (Late st Contact Info) Description 08/21/2023 Lab Requisition [facility] - DermPath Lab [address] [facility], [place] [phone] Matthias Peoples MD [facility] DERMATOLOGY [address] [place] [phone] Neoplasm of uncertain behavior of skin; [...] on file 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 [...] measuring 3x3x1 mm. Jar 0. 11:41 AM [facility] DERMATOPATHOLOGY LABORATORY Microscopic Description Specimen A. [...] collagen is delicate and pale. 11:41 AM [facility] DERMATOPATHOLOGY LABORATORY Disclaimer An external and internal positive and negative controls are appropriate for the histochemical, immunohistochemical and immunofluorescence stain(s) in this case (if any), except where stated explicitly. The performance characteristics of the stain(s) cited in this report were developed and its performance characteristic determined by the Dermatopathology Laboratory at [facility], directed by Dr. Arturo Hatfield. These tests need not be, and therefore are not, approved by the [place] Food and Drug Administration. The tests are used for clinical purposes. Billing Codes Specimen Charges Stain Charges 87198 64337 [id number] 19491 1 1 1 1 11:41 AM [facility] DERMATOPATHOLOGY LABORATORY Embedded Images 11:41 AM [facility] DERMATOPATHOLOGY LABORATORY Pathology/Cytology TISSUE SPECIMEN FROM [...] PATHOLOGY/CYTOLOGY JOEY DEWITT Final Result DERMATOPATHOLOGY LABORATORY [facility] - Department of Dermatology [address], [address] [phone] documented in this encounter Visit Diagnoses Diagnosis Neoplasm of uncertain behavior of skin 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
--- OUTSIDE RECORDS SUMMARY | 2024-08-28 10:54 | XMS_ITS | Clinical Summary ---
Author Organization [facility] Address [address] [place] [address] Care Team Providers Care Fiberglass Ski Maker Name Role Phone Paul Man MD Primary Care Provider Source Comments [facility],non-owned Affiliates and Associated Physician Practices is amultiple site organization consisting of ambulatory clinics and hospital sitesin [place], [place], [place] and [place]. This disclosure is being madepursuant to the Care Everywhere program and may not contain all information available regarding this patient. Last updated 17.[facility] Allergies Active Allergy Reactions Criticality Noted Date [...] on file Legal Sex Male 6:52 PM YOUTUBER Gender Identity Not on file Sexual Orientation [...] Date of Phone Billing Address Personal/Family [address] [place] [address] MEDICARE Member Subscriber Plan / Payer (Ef fective for All Dates) Name:Mathieu Hernández Member ID:Not on file Relation to Subscriber:Self Name:Mathieu Hernández Subscriber ID:Not on file Payer ID:[id number] (NAIC) Group ID:Not on file Type:/ Address: [place] [phone] * Guarantor: MATHIEU HERNÁNDEZ Account Type Relation to Patient Date of Phone Billing Address Personal/Family [address] [place] [phone] MEDICARE * Guarantor: MATHIEU HERNÁNDEZ Account Type Relation to Patient Date of Phone Billing Address Personal/Family [address] [place] [phone] MEDICARE Care Teams Fiberglass Ski Maker Relationship Specialty Start Date End Date Paul Man MD [address] [place] [address] PCP - General 06/24/10
--- OUTSIDE RECORDS SUMMARY | 2024-08-28 10:54 | XMS_ITS | Clinical Summary ---
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 Gender Identity Not on file Sexual Orientation Not on file Last Filed Vital Signs Vital Sign Reading Time Taken Comments Blood Pressure - - Pulse - - Temperature - - Respiratory Rate - - Oxygen Saturation - - Inhaled Oxygen Concentration - - Weight 92.5 kg (204 lb) 05/12/2017 8:04 AM AEROPHYSICS ENGINEER Height 175.3 cm (5' 9 ) 05/12/2017 8:04 AM AEROPHYSICS ENGINEER Body Mass Index 30.13 05/12/2017 8:04 AM AEROPHYSICS ENGINEER Plan of Treatment Not on file Insurance [facility] CLAIMS [facility] Care Teams Belt Back Operator Relationship Specialty Start Date End Date Paul Man MD [address] [facility] [address] [place] [address] PCP - General Family Medicine 04/28/17
--- OUTSIDE RECORDS SUMMARY | 2024-08-28 10:54 | XMS_ITS | CONTINUITY OF CARE DOCUMENT ---
Author Name stacy yarelybernardino Address Unknown Organization [facility] Address [address] [facility] [address] [place] [address] Phone [phone] Care Team Providers Care Net Architect Name Role Phone Bravo Benito MD Unavailable [phone] PROBLEMS Condition Status Date Provider Notes ANGINA [...] Payer name Policy type / Coverage type [place] red alliance party ID FRANKLIN MATIAS [id number]
--- OUTSIDE RECORDS SUMMARY | 2024-08-28 10:54 | XMS_ITS | Continuity of Care Document ---
Author Organization [facility] Address [address] [place] [address] [address] [place] [address] Phone Care Team Providers Care Office Support Associate Name Role Phone Michelle Catalan Unavailable Unavailable Advance Directives Directive Yes / No Effective Date File Name No Information Encounters Encounter Description Practice Location Reason(s) For Visit Diagnoses Date Provider Providers Copied on Encounter [facility], [id number] [place] [address] [address], [place], [place], [id number], [place] tel:[phone] [facility] [place] No Information [address]. [address] [facility] , [address], [place], [address], [place]. tel:[phone] Family History Family Member Type Diagnosis Age [...]
== END 2024-08-28 10:17 | disposition home or self-care (01) ==
PROVIDERS: PCP Family Medicine; Visit Provider Physician Assistant Medical
DX: E87.1 Hypo-osmolality and hyponatremia (principal)
CPT/HCPCS: 36415; 80048

== ENCOUNTER 2024-09-04 07:30 | Outpatient (CLI) | payer MEDICARE, OTHER, SELFPAY ==
[2024-09-04 08:07] LABS: Anion Gap 10 mmol/L (4-12); Blood Urea Nitrogen 7 mg/dL (9-20); Calcium 9.3 mg/dL (8.4-10.2); Carbon Dioxide 26 mmol/L (22-30); Chloride 102 mmol/L (98-107); Estimated Glomerular Filt Rate > 60; Glucose 112 mg/dL (65-110); Sodium 138 mmol/L (137-145)
[2024-09-05 16:19] LABS: Osmolality, Urine 382 mOsm/kg (50-1200)
== END 2024-09-04 07:31 | disposition home or self-care (01) ==
LOC: ANHLAB 07:30
PROVIDERS: PCP Family Medicine; Visit Provider Physician Assistant Medical
DX: E87.1 Hypo-osmolality and hyponatremia (principal)
CPT/HCPCS: 36415; 80048; 83935

== ENCOUNTER 2024-09-12 14:02 | Outpatient (CLI) | payer MEDICARE, OTHER, SELFPAY ==
[2024-09-12 14:55] LABS: Anion Gap 13 mmol/L (4-12); Blood Urea Nitrogen 9 mg/dL (9-20); Calcium 9.6 mg/dL (8.4-10.2); Carbon Dioxide 20 mmol/L (22-30); Chloride 93 mmol/L (98-107); Estimated Glomerular Filt Rate > 60; Glucose 114 mg/dL (65-110); Potassium 3.9 mmol/L (3.4-5.0); Sodium 126 mmol/L (137-145)
== END 2024-09-12 14:03 | disposition home or self-care (01) ==
LOC: ANHLAB 14:03
PROVIDERS: PCP Family Medicine; Visit Provider Physician Assistant Medical
DX: E87.1 Hypo-osmolality and hyponatremia (principal); I45.10 Unspecified right bundle-branch block
CPT/HCPCS: 36415; 80048

== ENCOUNTER 2024-09-19 07:05 | Outpatient (CLI) | payer MEDICARE, OTHER, SELFPAY ==
[2024-09-19 08:02] LABS: Anion Gap 11 mmol/L (4-12); Blood Urea Nitrogen 11 mg/dL (9-20); Calcium 9.5 mg/dL (8.4-10.2); Carbon Dioxide 22 mmol/L (22-30); Chloride 99 mmol/L (98-107); Estimated Glomerular Filt Rate > 60; Glucose 127 mg/dL (65-110); Potassium 3.8 mmol/L (3.4-5.0); Sodium 132 mmol/L (137-145)
== END 2024-09-19 07:06 | disposition home or self-care (01) ==
PROVIDERS: PCP Family Medicine; Visit Provider Physician Assistant Medical
DX: E87.1 Hypo-osmolality and hyponatremia (principal)
CPT/HCPCS: 36415; 80048

== ENCOUNTER 2024-09-24 07:31 | Outpatient (CLI) | payer MEDICARE, OTHER, SELFPAY ==
--- NOTE | 2024-09-24 07:52 | ECG_ITS ---
Test Date: 2024-09-24 08:07:05 Measurements Intervals [place] Rate: 88 P: -1 [place]: 171 QRS: 10 QRSD: 102 T: 18 QT: 359 QTc: 435 Interpretive Statements SINUS RHYTHM INCOMPLETE RIGHT BUNDLE BRANCH BLOCK BASELINE ARTIFACT- I, II, III BORDERLINE ECG Compared to ECG 09/14/2023 02:11:27 HEART RATE HAS DECREASED Electronically Signed On 09-24-2024 08:33:42 CDT by Pedro Moreno D.O.
[2024-09-24 08:44] LABS: Add Urine Microscopic? NO; Appearance Urine Clear (Clear); Bilirubin Urine Negative (Negative); Blood Urine Negative (Negative); Color Urine Yellow (Yellow); Glucose Urine UA Negative (Negative); Ketones Urine Negative (Negative); Leukocyte Esterase Ur Negative LEU/UL (Negative); Nitrate Urine Negative (Negative); Protein Urine Negative (Negative); Specific Grav Ur 1.003 (1.001-1.035); Urobilinogen Urine 0.2 mg/dL (<2.0); pH Urine 6.5 (5.0-9.0)
[2024-09-24 09:01] LABS: Hematocrit 38.8 % (42.0-52.0); Hemoglobin 12.9 g/dL (14.0-18.0); Mean Corpuscular HGB Conc 33.2 g/dl (32-36); Mean Corpuscular Hemoglobin 31.5 pg (26-34); Mean Corpuscular Volume 94.9 fl (80-100); Mean Platelet Volume 9.4 fl (7.4-10.4); Platelet Count Result 342 k/mm3 (150-375); Red Blood Count 4.09 M/mm3 (4.6-6.20); Red Cell Distribution Width 13.1 % (11.5-14.5); White Blood Count 8.6 K/mm3 (4.5-10.0)
[2024-09-24 09:12] LABS: Prothrombin Time 12.9 Seconds (11.1-14.7)
[2024-09-24 09:14] LABS: Partial Thromboplastin Time 28.5 Seconds (22.3-36.8)
== END 2024-09-24 07:32 | disposition home or self-care (01) ==
LOC: ANHSURGERY 07:36
PROVIDERS: PCP Family Medicine; Visit Provider Neurological Surgery
DX: M48.061 Spinal stenosis, lumbar region without neurogenic claudication (principal); I10 Essential (primary) hypertension; I45.10 Unspecified right bundle-branch block
CPT/HCPCS: 36415; 81003; 85027; 85610; 85730; 93005

== ENCOUNTER 2024-09-27 00:36 | Day surgery (SDC) | payer MEDICARE, OTHER, SELFPAY ==
--- NOTE | 2024-09-20 09:40 | PC.NURSE ---
Report to the Outpatient Waiting Room, entrance under the green pavilion located off [facility], at time __7:30 AM on date _09/27/24 . Planned Procedure Time: __9:30 AM .? Time changes happen often and if your time is changed the preop area will call you the afternoon before. - You and your visitor will be asked to self-screen and do not enter if you have any COVID symptoms. Please call surgeon if you need to reschedule. - A mask is optional within the hospital at this time. Patients may have clear liquids (water, carbonated beverages, clear teas, apple juice) until 3 hours prior to surgery ( 6:30 AM) with a maximum of 20 ounces. - No food from midnight until time of surgery and no smoking, or chewing tobacco (or any form of nicotine). No chewing gum, candy or mints. Take only the following medications with a SIP of water on the morning of surgery: ___AMLODIPINE,METOPROLOL,OXYCODONE IF NEEDED FOR PAIN DO NOT STOP ANY OF YOUR OTHER PRESCRIPTION MEDICATIONS PRIOR TO SURGERY EXCEPT THE FOLLOWING Hold all vitamins and supplements for 3 days per anesthesiologist. Medications to discontinue per physician NONE Please no make-up, nail armenian, hairspray, perfume, deodorant, or body powder the day of surgery.? No jewelry (including any body piercings) or valuables the day of surgery, leave them at home.? Please take a shower or bath the night before, or the morning of, surgery with an antibacterial soap.? Wear comfortable, loose fitting clothing.? Children are encouraged to wear pajamas. - Jewelry must be removed prior to entering the operating room.? Rings and piercings that are not removed may be cut off. - The hospital will not accept responsibility for valuables.? - Please leave all valuables, including medications, at home the day of surgery. If you are going home after surgery, a licensed dray truck driver must drive you home.? - NO public transportation without another adult if you receive anesthesia. - We recommend that an adult stay with you for 24 hours following discharge. - We also recommend that you do not drive, make important decision, drink alcoholic beverages, or take any drugs that were not prescribed by your health care provider for at least 24 hours after your discharge time. For Pediatric surgeries, we recommend two adults accompany the child home. Follow any additional instructions given to you from your surgeon. Telephone instructions given to ___PATIENT and asked if any additional questions and then verbalized understanding. Patient advised to call surgeon office or pre surgery nurse liaison [phone] if any additional questions.
[2024-09-20 09:59] VITALS: BMI 32.4
[2024-09-27] VITALS (8 sets, daily range): BP systolic 120–159; BP diastolic 70–97; PULSE 75–102; RESP 8–20; TEMP 36.3–36.4; O2SAT 96–100; BMI 34.2
--- NOTE | ~2024-09-27 | XR_ITS ---
INTRAOPERATIVE FLUOROSCOPY: CLINICAL HISTORY: 68 years old Male; L3-4 BILATERAL LUMBAR LAMINECTOMY/MEDIAL FACETECTOMY PROCEDURE COMMENTS: Limited intraoperative fluoroscopy of the lumbar spine was performed. CUMULATIVE DOSE: 4.5 mGy FLUOROSCOPY TIME: 9.6 seconds FINDINGS/IMPRESSION: Please refer to operative note for further details. Reviewed, dictated and finalized at location A.
--- OUTSIDE RECORDS SUMMARY | 2024-09-27 00:40 | XMS_ITS | Clinical Summary ---
Author Organization [facility] Address [address] [place] [address] Care Team Providers Care Division Head Name Role Phone Unavailable Primary Care Provider [...]
--- NOTE | 2024-09-27 08:26 | P.PNAN_ITS ---
Anes - Initial Pre Proc Eval Procedure: Operation Date: 09/27/24 09:30 Proposed Procedures p L3-4 Bilateral Lumbar Laminectomy, Bilateral Medial Facetectomy and Diskectomy - Artur Engel MD Date/Time: 09/27/24 08:26 Surgeon: Artur Engel MD Pre Op Diagnosis: Lumbar Stenosis Patient Data Age: 68 Gender: M Height: 1.71 m Weight: 95.3 kg Allergies Allergy/AdvReac Type Severity Reaction Status Date / Time pregabalin (From Lyrica) AdvReac Muscle Verified 09/27/24 08:37 Spasms Home Medications ?Medication ?Instructions ?Recorded ?Confirmed ?Type duloxetine 60 mg capsule,delayed 60 mg PO DAILY 02/28/19 09/20/24 History release (Cymbalta) sildenafil 50 mg tablet (Viagra) 50 mg PO DAILY PRN sexual activity 09/16/22 09/20/24 Rx #10 tabs latanoprost 0.005 % eye drops 1 drp EACH EYE HS 09/14/23 09/20/24 History cyclobenzaprine 10 mg tablet 10 mg PO BID 10/04/23 09/20/24 History rabeprazole 20 mg tablet,delayed 20 mg PO DAILY #90 tabs 10/23/23 09/20/24 Rx release (AcipHex) lidocaine 5 % topical patch 1 patch topical DAILY #15 ea 04/12/24 09/20/24 Rx atorvastatin 10 mg tablet 10 mg PO DAILY #90 tabs 06/24/24 09/20/24 Rx neomycin-bacitracn Zn-polymyx 3.5 1 applic topical TID 7 days #14 06/30/24 09/20/24 Rx mg-400 unit-5,000 unit/gram top grams oint (Triple Antibiotic) trazodone 50 mg tablet 50 mg PO QHS PRN insomnia #90 tabs 08/23/24 09/20/24 Rx amlodipine 10 mg tablet 10 mg PO DAILY #90 tabs 09/19/24 09/27/24 Rx valsartan 320 mg tablet 320 mg PO DAILY #90 tabs 09/19/24 09/20/24 Rx oxycodone-acetaminophen 7.5 mg-325 1 tablet PO PRN PRN pain 09/20/24 09/27/24 History mg tablet albuterol sulfate 90 mcg/actuation 1 inh inhalation Q4H PRN shortness 09/27/24 Rx aerosol inhaler of breath or wheezing #6.7 grams cyclobenzaprine 5 mg tablet 5 mg PO HS #30 tabs 09/27/24 Rx metoprolol succinate 100 mg 100 mg PO DAILY #30 tabs 09/27/24 Rx tablet,extended release 24 hr sennosides 8.6 mg tablet (senna) 8.6 mg PO BID PRN constipation #30 09/27/24 Rx tabs oxycodone 5 mg tablet 5 mg PO Q4H PRN pain #32 tabs 10/04/24 Rx Patient hx anesthesia problems: none Family hx anesthesia problems: none Results Review: All pre-operative results and documents have been reviewed as part of the pre- operative evaluation. [facility] Past Medical History Medical History Tobacco use Tobacco abuse Nontraumatic avulsion of toenail performed by design checker Dr Patel June 2024 Diabetes mellitus Iron deficiency anemia Glaucoma Pars planitis of both eyes Lichen planus Overweight Wellness examination Chronic obstructive pulmonary disease Essential hypertension Benign colon polyp PTSD (post-traumatic stress disorder) Right rotator cuff tear Radiculopathy, lumbar region Macular degeneration of both eyes Surgical History Surgical History H/O excision of mass benign cyst excised from ear H/O vasectomy H/O carpal tunnel repair Trigger finger H/O eye surgery Family History Family History Father Family history of diabetes mellitus in first degree relative Sibling Family history of diabetes mellitus in first degree relative Other Cerebrovascular accident Diabetes mellitus Family history of arthritis Family history of cardiovascular disease Family history of lung disease Family history of malignant neoplasm Hypertension Social History Social History Social History: Smoking packs per day: 0.5 Smoking cigarettes per day: 10.0 Years smoked: 40 Smoking pack-years: 20.00 Smoking status: Former smoker Tobacco type: cigarettes Second hand tobacco smoke exposure: No Smoking end date: 12/04/23 Alcohol intake: current Drinks per week: 28 Alcohol use details: BEER Substance use: never Substance use type: does not use Do You Feel Safe in your Home?: Yes Lack of Transportation: No Lack of Food: Never True Current Housing: I Have Housing Concerned About Future Housing: No Difficulty Paying Gas/Electric Bills: No Difficulty Paying for Meds: No Currently Unemployed: YES Education: Trade/Vocational Certificate Difficulty w/ Childcare or Family Care: No Living arrangements: with family Occupation/Education: retired Gender identity (if verbalized by the patient): Male Sexual Orientation (if Verbalized by the Patient): Straight or Heterosexual Spiritual care concerns: No Anes - Eval Final PreProcedure Day of Procedure 09/27/24 08:26 Patient weight: obese Heart: regular rate and rhythm Lungs: clear to auscultation Airway: Mallampati scale class II Neurological: alert and oriented Last oral intake: >/= 8 hours ASA classification: III Emergent: no Anesthetic plan: proceed Anesthesia type and monitoring: general ETT and standard monitoring Results Review: All pre-operative results and documents have been reviewed as part of the pre- operative evaluation. Informed Consent: The patient's anesthetic plan and its attendant risks and benefits were discussed with the patient/family/POA. Questions were solicited and answers provided to the satisfaction of the patient/family/POA.
[2024-09-27] MEDS: LACTATED RINGERS 1,000 ML 30 ML IV CONT ×2 (08:30→10:30)
--- NOTE | 2024-09-27 08:37 | P.HP_ITS ---
H&P: HPI History of Present Illness Date/Time: 09/27/24 08:37 Chief Complaint: 68 year old gentleman with large L3/4 disc extrusion and central stenosis with symptoms of neurogenic claudication. he failed conservative management and is now here for an L3/4 bilateral lumbar laminectomy, bilateral medial facetectomy and discectomy, [facility] Past Medical History Medical History Tobacco use Tobacco abuse Nontraumatic avulsion of toenail performed by qa software test engineer Dr Patel June 2024 Diabetes mellitus Iron deficiency anemia Glaucoma Pars planitis of both eyes Lichen planus Overweight Wellness examination Chronic obstructive pulmonary disease Essential hypertension Benign colon polyp PTSD (post-traumatic stress disorder) Right rotator cuff tear Radiculopathy, lumbar region Macular degeneration of both eyes Surgical History Surgical History H/O excision of mass benign cyst excised from ear H/O vasectomy H/O carpal tunnel repair Trigger finger H/O eye surgery Family History Family History Father Family history of diabetes mellitus in first degree relative Sibling Family history of diabetes mellitus in first degree relative Other Cerebrovascular accident Diabetes mellitus Family history of arthritis Family history of cardiovascular disease Family history of lung disease Family history of malignant neoplasm Hypertension Social History Social History Social History: Smoking packs per day: 0.5 Smoking cigarettes per day: 10.0 Years smoked: 40 Smoking pack-years: 20.00 Smoking status: Former smoker Tobacco type: cigarettes Second hand tobacco smoke exposure: No Smoking end date: 03/13/23 Alcohol intake: current Drinks per week: 28 Alcohol use details: BEER Substance use: never Substance use type: does not use Do You Feel Safe in your Home?: Yes Lack of Transportation: No Lack of Food: Never True Current Housing: I Have Housing Concerned About Future Housing: No Difficulty Paying Gas/Electric Bills: No Difficulty Paying for Meds: No Currently Unemployed: YES Education: Trade/Vocational Certificate Difficulty w/ Childcare or Family Care: No Living arrangements: with family Occupation/Education: retired Gender identity (if verbalized by the patient): Male Sexual Orientation (if Verbalized by the Patient): Straight or Heterosexual Spiritual care concerns: No Meds Home Medications and Allergies Home Medications ?Medication ?Instructions ?Recorded ?Confirmed ?Type duloxetine 60 mg capsule,delayed 60 mg PO DAILY 02/28/19 09/20/24 History release (Cymbalta) sildenafil 50 mg tablet (Viagra) 50 mg PO DAILY PRN sexual activity 09/16/22 09/20/24 Rx #10 tabs latanoprost 0.005 % eye drops 1 drp EACH EYE HS 09/14/23 09/20/24 History cyclobenzaprine 10 mg tablet 10 mg PO BID 10/04/23 09/20/24 History rabeprazole 20 mg tablet,delayed 20 mg PO DAILY #90 tabs 10/23/23 09/20/24 Rx release (AcipHex) lidocaine 5 % topical patch 1 patch topical DAILY #15 ea 04/12/24 09/20/24 Rx atorvastatin 10 mg tablet 10 mg PO DAILY #90 tabs 06/24/24 09/20/24 Rx neomycin-bacitracn Zn-polymyx 3.5 1 applic topical TID 7 days #14 06/30/24 09/20/24 Rx mg-400 unit-5,000 unit/gram top grams oint (Triple Antibiotic) trazodone 50 mg tablet 50 mg PO QHS PRN insomnia #90 tabs 08/23/24 09/20/24 Rx amlodipine 10 mg tablet 10 mg PO DAILY #90 tabs 09/19/24 09/20/24 Rx valsartan 320 mg tablet 320 mg PO DAILY #90 tabs 09/19/24 09/20/24 Rx oxycodone-acetaminophen 7.5 mg-325 1 tablet PO PRN PRN pain 09/20/24 09/20/24 History mg tablet metoprolol succinate 100 mg 100 mg PO DAILY #30 tabs 09/23/24 Rx tablet,extended release 24 hr Allergies Allergy/AdvReac Type Severity Reaction Status Date / Time pregabalin (From Lyrica) AdvReac Muscle Verified 09/27/24 08:37 Spasms Exam Narrative: awake alert no acute distress MAEW 08/12 including IP/Q/H/PF/DF/EHL Assessment and Plan Assessment and plan (1) Lumbar canal stenosis: Code(s): M48.061 - Spinal stenosis, lumbar region without neurogenic claudication Status: Acute Plan proceed with L3/4 bilateral lumbar laminectomy, bilateral medial facetectomy and discectomy,
--- NOTE | 2024-09-27 08:37 | WPDHPUPDATE1 ---
History and Physical Update Update Date/Time: 09/27/24 08:37 History and Physical has been reviewed, including an updated exam of the patient. There are NO changes in the patient's condition. Risks, benefits, and alternatives have been discussed and questions answered. Patient agrees to proceed with procedure.
[2024-09-27] MEDS: ceFAZolin 2 GM/D5W 50 ML 2 GM/50 ML BAG IVPB (08:57)
[2024-09-27] MEDS: BUPIVACAINE/EPINEPHRINE 0.5% 50 ML VIAL 15 ML INFILTRATE (09:41)
--- NOTE | 2024-09-27 10:32 | W.PM.PROC2 ---
Procedure Note - Detailed Date of Procedure 09/27/24 Pre-op Diagnosis Lumbar Stenosis Post-op Diagnosis Same Procedure Performed L3-4 bilateral lumbar laminectomy and bilateral medial facetectomy use of operating microscope for microdissection Surgeon Artur Engel MD Anesthesia General Description of Procedure patient was brought into the operating room and once intubated was positioned prone onto the Jose M frame. Lateral fluoroscopy was brought in to confirm the level had L3-4. Once this was completed I meant marked the incision the patient was prepped and draped in the usual sterile fashion. Final time-out was performed indicating correct patient procedure and site. Local anesthetic was infiltrated along the incision line. At this point I made the incision through the marked incision down to the fascia. Self retaining retractors were placed. I then used Bovie electrocautery to perform subperiosteal dissection across the spinous process and lamina of L3/4. I then placed a curved curette underneath the lamina of L3 lateral fluoroscopy was brought in and confirmed I was at the L3-4 level. Once this was completed self-retaining retractors were again placed tested. A lot of microscope was brought in and the curette was removed from beneath the lamina and dura were direct visualization. Hemostasis was obtained and then used the rongeur to remove the majority of the spinous process of L3 and use the drill to perform trough laminectomies at L3-4 this was then completed Supriya Urban the ligamentum was removed until the thecal sac was decompressed. Hemostasis was obtained that I used [place] 4 to move the thecal sac medially to expose underlying subligamentous disc herniation. I performed this from the patient's left side. Then cut into the disc space for the nerve roots retracted by my speech pathologist assistant. I then used a variety of nerve hooks and down pushing curettes to push down and press down onto the disc space and remove disc material. At this point I did not identify any further disc bulge that could be identified at this level. The thecal sac appeared well decompressed I then also inspected the right side lateral recess and did not identify any significant disc bulge. At this point hemostasis was obtained the wound was irrigated closed in layers. Patient is was then closed with Steri-Strips on the skin. Patient was positioned supine and turned over to Anesthesia for extubation. There were no complications during the surgery. Estimated Blood Loss 25 Complications No immediate complications Condition Stable Disposition PACU [facility] Billing Surgery - Charge Forward: Surgery Billing
[2024-09-27] MEDS: fentaNYL CITRATE INJ (*CRX) 100 MCG/2 ML VIAL 25 MCG IV PUSH ×4 (10:56→11:14)
[2024-09-27] MEDS: oxyCODONE HCL (*CRX) 5 MG TAB IR PO (11:46)
== END 2024-09-27 12:24 | disposition home or self-care (01) ==
PROVIDERS: PCP Family Medicine; Visit Provider Neurological Surgery
PROC: 0QB00ZX Excision of Lumbar Vertebra, Open Approach, Diagnostic (ICD-10-PCS; CPT 63017; principal; 2024-09-27 09:30)
DX: M48.061 Spinal stenosis, lumbar region without neurogenic claudication (principal); Z87.891 Personal history of nicotine dependence
CPT/HCPCS: 63047; 99199; A9270; J0690; J1100; J1171; J2003; J2250; J2405; J2704; J3010; J7120

== ENCOUNTER 2024-10-15 06:44 | Outpatient (CLI) | payer MEDICARE, OTHER, SELFPAY ==
--- OUTSIDE RECORDS SUMMARY | 2024-10-15 06:47 | XMS_ITS | Clinical Summary ---
Author Organization [facility] Address [address] [place] [address] Care Team Providers Care Metal Cutter Name Role Phone Unavailable Primary Care Provider [...]
[2024-10-15 09:53] LABS: Hematocrit 39.8 % (42.0-52.0); Hemoglobin 13.5 g/dL (14.0-18.0); Mean Corpuscular HGB Conc 33.9 g/dl (32-36); Mean Corpuscular Hemoglobin 31.8 pg (26-34); Mean Corpuscular Volume 93.6 fl (80-100); Platelet Count Result 347 k/mm3 (150-375); Red Blood Count 4.25 M/mm3 (4.6-6.20); White Blood Count 8.4 K/mm3 (4.5-10.0)
[2024-10-15 10:12] LABS: Hemoglobin A1C 5.8 % (<5.7)
[2024-10-15 10:19] LABS: Alanine Aminotransferase 26 U/L (6-50); Albumin Level 4.6 g/dL (3.5-5.1); Alkaline Phosphatase 113 U/L (38-126); Anion Gap 13 mmol/L (4-12); Aspartate Amino Transferase 35 U/L (17-59); Bilirubin,Total 0.5 mg/dL (0.2-1.3); Blood Urea Nitrogen 12 mg/dL (9-20); Calcium 9.6 mg/dL (8.4-10.2); Carbon Dioxide 23 mmol/L (22-30); Chloride 94 mmol/L (98-107); Cholesterol 182 mg/dL (0-200); Estimated Glomerular Filt Rate > 60; Glucose 116 mg/dL (65-110); HDL Direct 71 mg/dL; Potassium 3.8 mmol/L (3.4-5.0); Sodium 130 mmol/L (137-145); Total Protein 7.4 g/dL (6.3-8.2); Triglycerides 122 mg/dL (<150)
[2024-10-15 10:50] LABS: Prostate Specific Antigen 0.9 ng/mL (< OR = 4.0); Thyroid Stimulating Hormone 2.440 uIU/mL (0.465-4.680)
[2024-10-15 11:17] LABS: MALB Creatinine Ratio 39.8 mg/g (0-30)
== END 2024-10-15 06:45 | disposition home or self-care (01) ==
PROVIDERS: PCP Family Medicine; Visit Provider Physician Assistant Medical
DX: R35.1 Nocturia (principal); Z00.00 Encounter for general adult medical examination without abnormal findings; I10 Essential (primary) hypertension; E11.40 Type 2 diabetes mellitus with diabetic neuropathy, unspecified; E78.2 Mixed hyperlipidemia; F43.12 Post-traumatic stress disorder, chronic; D64.9 Anemia, unspecified; Z12.5 Encounter for screening for malignant neoplasm of prostate
CPT/HCPCS: 36415; 80053; 80061; 82043; 83036; 84153; 84443; 85027; G0103

== ENCOUNTER 2024-10-30 07:53 | Outpatient (CLI) | payer MEDICARE, OTHER, SELFPAY ==
--- OUTSIDE RECORDS SUMMARY | 2024-10-30 07:58 | XMS_ITS | Clinical Summary ---
Author Organization [facility] Address [address] [place] [address] Care Team Providers Care Brine Supervisor Name Role Phone Unavailable Primary Care Provider [...]
--- NOTE | 2024-11-27 10:11 | P.PCNPFT_ITS ---
PFT Procedure Performed PFT Procedure Performed Spirometry with Pre/Post Bronchodilator Plethysmography (Lung Vol) Diffusing Cap (DLCO) Flow Vol Loop PFT Interpretation DOS: 10/30/2024 REQUESTING: Berto Agarwal PA-C REASON FOR TESTING: Shortness of breath PULMONARY FUNCTION TESTS Results are reliable and reproducible. Repeatability of spirometry FEV1 maneuver pre and post bronchodilator both are Grade B. Flash: GLI 2012 reference equations were used. Spirometry: The pre-bronchodilator FEV1 is 1.73 L, 58%, decreased. The pre- bronchodilator FVC is 2.92 L, 75%, normal. The FEV1/FVC ratio is 59% decreased, consistent with airflow obstruction. After bronchodilator, the FEV1 is 2.06 L, 69%, +19%. After bronchodilator, the FVC is 3.17 L, 82%, +9%. The FEV1/FVC ratio is 65%. This is a significant response to bronchodilator. Lung volumes: The total lung capacity is 6.43 L, 100%, normal. The FRC is 3.73 L, 111%, normal. The residual volume is 3.19 L, 143%, increased, consistent with air trapping. The RV/TLC is 50%, increased. Airway resistance is increased. Diffusion: DLCO is 20.7, 82%, normal. The DLCO/VA is 3.83 L, 92%, normal. Flow volume loop: The flow volume loop is abnormal with both the inspiratory and expiratory loop showing flattening. This was a reproducible finding on 2 loops, with 3 loops being required to make a definitive judgment. IMPRESSION: This study shows a moderate obstructive ventilatory impairment with robust response to bronchodilator, moderate air trapping which is consistent with an obstructive defect, normal diffusion. The flow volume loop has flattening on the inspiratory and expiratory limbs which can be seen in a fixed upper airway obstruction. This flow volume loop pattern can be seen in tracheal stenosis, tumors, foreign bodies, and vocal cord paralysis. Clinical correlation is recommended. Yesenia Pham MD
== END 2024-10-30 07:54 | disposition home or self-care (01) ==
LOC: ANHPFT 07:54
PROVIDERS: PCP Family Medicine; Visit Provider Physician Assistant Medical
DX: R06.02 Shortness of breath (principal); Z87.891 Personal history of nicotine dependence
CPT/HCPCS: 94060; 94726; 94729

== ENCOUNTER 2025-02-05 14:01 | Outpatient (CLI) | payer MEDICARE, OTHER, SELFPAY ==
--- NOTE | ~2025-02-05 | XR_ITS ---
EXAMINATION: XR hip LT min 2V, 02/05/2025 14:22 CDT HISTORY: POSTERIOR LT HIP PAIN AFTER FALL 1 MONTH AGO COMPARISON: No comparisons available. Findings: No acute fracture or malalignment. No significant degenerative changes. Soft tissues unremarkable. Impression: No acute fracture or malalignment. Reviewed, dictated and finalized at location P. Impression: No acute fracture or malalignment.
== END 2025-02-05 14:02 | disposition home or self-care (01) ==
PROVIDERS: PCP Family Medicine; Visit Provider Physician Assistant Medical
DX: M25.552 Pain in left hip (principal); W19.XXXA Unspecified fall, initial encounter
CPT/HCPCS: 73502

== ENCOUNTER 2025-02-12 09:14 | Outpatient (CLI) | payer MEDICARE, OTHER, SELFPAY ==
--- NOTE | ~2025-02-12 | XR_ITS ---
XR lumbar spine 2-3V Indication: LBP WORSE ON LT SIDE W/ PAIN RADIATING INTO BOTH LEG Comparison: None Findings: Grade 1 anterolisthesis of L3 on L4 on L5 and grade 1 retrolisthesis L5 on S1, no fracture is identified. Moderate osteopenia. Severe loss of disc height at L5-S1. Soft tissues unremarkable Impression: No acute abnormality. Reviewed, dictated and finalized at location P. RIBUTION CLERK Impression: No acute abnormality.
== END 2025-02-12 09:15 | disposition home or self-care (01) ==
PROVIDERS: PCP Family Medicine; Visit Provider Physician Assistant Medical
DX: M54.50 Low back pain, unspecified (principal)
CPT/HCPCS: 72100

== ENCOUNTER 2025-04-02 06:32 | Outpatient (CLI) | payer MEDICARE, OTHER, SELFPAY ==
--- OUTSIDE RECORDS SUMMARY | 2025-04-02 06:36 | XMS_ITS | Encounter Summary ---
Author Organization [facility] Address [address] [place] [address] Care Team Providers Care Cognos Report Developer Name Role Phone Paul Man MD Primary Care Provider [phone] Encounter Details Date Type Department Care Team (Late st Contact Info) Description 08/21/2023 Lab Requisition [facility] - DermPath Lab [address] [place] [id number] Matthias Peoples MD [facility] DERMATOLOG[facility] [address] [place] [phone] Neoplasm of uncertain behavior of skin; [...] on file 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 Jar 0. 11:41 AM [facility] DERMATOPATHOLOGY [facility]ORATORY Microscopic Description Specimen A. [...] is delicate and pale. 11:41 AM [facility] DERMATOPATHOLOGY [facility]ORATORY Disclaimer An external and internal positive and negative controls are appropriate for the histochemical, immunohistochemical and immunofluorescence stain(s) in this case (if any), except where stated explicitly. The performance characteristics of the stain(s) cited in this report were developed and its performance characteristic determined by the Dermatopathology Laboratory at [facility], directed by Dr. Arturo Hatfield. These tests need not be, and therefore are not, approved by the [place] Food and Drug Administration. The tests are used for clinical purposes. 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
--- OUTSIDE RECORDS SUMMARY | 2025-04-02 06:36 | XMS_ITS | Clinical Summary ---
Author Organization [facility] Address [facility] [place] [address] Care Team Providers Care Commutator Assembler Name Role Phone Unavailable Primary Care Provider [...] Vaccines (1 of 2) 12/03/2005 COVID-19 Vaccine (1 - 2024-2 6 season) 2024 Influenza Adult (#1) 2025 RSV Immunization or 60+ Years (1 - 1-dose 75+ series) 12/03/2030 Hepatitis A Vaccines Aged Out No long er eligible based on patient's age to complete this topic Meningococcal B Vaccine Aged Out No l onger eligible based on patient's age to complete this topic Meningococcal Vaccine Aged Out No jaylene jose eligible based on patient's age to complete this topic RSV Immunizations Under 20 Months Aged Out No longer eligible based on patient's age to complete this topic
--- OUTSIDE RECORDS SUMMARY | 2025-04-02 06:36 | XMS_ITS | Clinical Summary ---
Author Organization [facility] Address [address] [place] [address] Care Team Providers Care Green Building Materials Designer Name Role Phone Paul Man MD Primary Care Provider [phone] Source Comments [facility],non-owned Affiliates and Associated Physician Practices is amultiple site organization consisting of ambulatory clinics and hospital sitesin [place], [place], [place] and [place]. This disclosure is being madepursuant to the Care Everywhere program and may not contain all information available regarding this patient. 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 Gender Identity Not on file Sexual Orientation [...] 12/03/2005 ZOSTER VACCINE (1 of 2) 12/03/2005 DEPRESSION SCREENING 04/10/2024 COVID-19 VACCINE (1 - 2024-2 6 season) 2024 INFLUENZA VACCINE (#1) 2024 01/06/2018 Respiratory Syncytial Virus (RSV) Vaccine Pt: or [...] Date of Phone Billing Address Personal/Family [address] [place] [address] MEDICARE Member Subscriber Plan / Payer (Ef fective for All Dates) Name:Mathieu Hernández Member ID:[id number] Relation to Subscriber:Self Name:Mathieu Hernández Subscriber ID:[id number] Payer ID:Not on file Group ID:Not on file Type:Medicare Address: [place] [phone] Member Subscriber Plan / Payer (Ef fective for All Dates) Name:Mathieu Hernández Member ID:Not on file Relation to Subscriber:Self Name:Mathieu Hernández Subscriber ID:Not on file Payer ID:[id number] (NAIC) Group ID:Not on file Type:/ Address: [place] [phone] * Guarantor: MATHIEU HERNÁNDEZ Account Type Relation to Patient Date of Phone Billing Address Personal/Family [address] [place] [address] MEDICARE * Guarantor: MATHIEU HERNÁNDEZ Account Type Relation to Patient Date of Phone Billing Address Personal/Family [address] [place] [phone] MEDICARE Care Teams Green Building Materials Designer Relationship Specialty Start Date End Date Paul Man MD [address] [place] [address] PCP - General 06/24/10
[2025-04-02 07:06] LABS: Hematocrit 37.8 % (42.0-52.0); Hemoglobin 13.6 g/dL (14.0-18.0); Mean Corpuscular HGB Conc 36.0 g/dl (32-36); Mean Corpuscular Hemoglobin 33.7 pg (26-34); Mean Corpuscular Volume 93.8 fl (80-100); Platelet Count Result 283 k/mm3 (150-375); Red Blood Count 4.03 M/mm3 (4.6-6.20); White Blood Count 6.5 K/mm3 (4.5-10.0)
[2025-04-02 07:16] LABS: Hemoglobin A1C 5.2 % (<5.7)
[2025-04-02 07:24] LABS: Alanine Aminotransferase 59 U/L (6-50); Albumin Level 4.7 g/dL (3.5-5.1); Alkaline Phosphatase 96 U/L (38-126); Anion Gap 12 mmol/L (4-12); Aspartate Amino Transferase 68 U/L (17-59); Bilirubin,Total 0.9 mg/dL (0.2-1.3); Blood Urea Nitrogen 10 mg/dL (9-20); Calcium 9.5 mg/dL (8.4-10.2); Carbon Dioxide 23 mmol/L (22-30); Chloride 89 mmol/L (98-107); Estimated Glomerular Filt Rate > 60; Glucose 138 mg/dL (65-110); Potassium 3.5 mmol/L (3.4-5.0); Sodium 124 mmol/L (137-145); Total Protein 7.6 g/dL (6.3-8.2)
== END 2025-04-02 06:33 | disposition home or self-care (01) ==
PROVIDERS: PCP Physician Assistant Medical; Visit Provider Physician Assistant Medical
DX: E78.2 Mixed hyperlipidemia (principal); I10 Essential (primary) hypertension; E11.40 Type 2 diabetes mellitus with diabetic neuropathy, unspecified; F43.12 Post-traumatic stress disorder, chronic; D64.9 Anemia, unspecified; E87.1 Hypo-osmolality and hyponatremia; R35.1 Nocturia
CPT/HCPCS: 36415; 80053; 83036; 85027